=== PATIENT | female | born 1985 | race Caucasian/White ===

== ENCOUNTER 2019-04-17 16:17 | Inpatient (IN) | payer OTHER, SELFPAY ==
[2019-04-17] VITALS (69 sets, daily range): BP systolic 82–120; BP diastolic 45–83; PULSE 66–124; RESP 8–22; TEMP 36.5–38; O2SAT 86–100
--- NOTE | 2019-04-17 16:15 | W.ED.GENAD ---
Discharge Plan Disposition Patient Disposition: [facility] INPATIENT Condition: Improving Discharge Details Chief Complaint: OD/Poison Clinical Impression: Intentional opiate overdose, Aspiration pneumonia, Altered mental status, Suicide attempt Admit Date/Time: 04/17/19 18:25 Admit Provider: Galileo Moore Attending Provider: Galileo Moore Primary Care Provider: Fanny Willson ED Provider: Ashish Olvera Medical Decision Making This is a 33-year-old female with no significant past medical history except for anxiety and irritable bowel syndrome who presents today for evaluation of suspected overdose. Since 8 AM, which is the past 8 hours the patient has been search for over by [facility] police. They did find her not long ago with an empty bottle of liquid morphine which was . It was 100 mg per 5 mL's. Unknown downtime. She was given 8 mg intranasally by initial EMS and then 0.5 mg IV by paramedics. She had notable improvement of her respirations after this. Patient is altered but responds to all commands and follows commands. She does appear to be under the influence of the medication. She does admit to me that she did try to take her life today. Exam demonstrates no focal neurologic deficit, no cervical thoracic or lumbar midline spinal tenderness. Reflexes and sensation appear intact. Patient does appear slightly lethargic though. Suspect overdose, as well as potential mild brain injury secondary to the unknown downtime. We will evaluate with CT scan, ABG, resuscitate, evaluate CPK level for potential further clues and downtime. Patient will require admission based on her current clinical state. 6:22 PM Laboratory work-up is returned relatively benign, CPK is notably elevated though, in the setting of normal renal function though. She does have some leukocytosis. I suspect mild rhabdomyolysis. ABG demonstrated a low O2, however it did not correlate with her pulse ox, so I suspect that it was actually a VBG. I did discuss this with the respiratory therapist and they confirm that the blood was not pulsatile, it did not come quickly, and was notably dark initially. The patient has maintained good lung saturations this entire time. There was a brief episode roughly 2 minutes ago where the patient's head was back, and she was snoring, her oxygen was 88%. She was woken up and she immediately jumped up to 98% on room air. Pupils remain reactive, no signs of pinpoint pupils currently. I do not feel that at this time a Narcan drip is clinically indicated. She is awake alert and oriented now, and has notable improvement in her mental status. She is answering my questions and does admit to self-harm currently. We do have a one-to-one ordered for the patient. I did contact Dr. Gilbert at the and discussed the case with him, he agrees with the current plan. Patient will be admitted to the ICU. He has asked that I place brief admission orders in the meantime, however he has accepted care of the patient. I have extensively reviewed the treatment plan with the patient. I have addressed all patient concerns at this time. I have also discussed the plan with the admitting physician and they agree with the current assessment and plan and have agreed to assume responsibility for the patient. All parties demonstrate verbal understanding and agreement with our assessment and plan at this time. Immediately prior to admission transition to the floor, with myself and Dr. Moore, there was a notable decrease in the patient's respiratory drive. The decision was made to give her 0.4 mg of Narcan, this notably improved her symptomatology. Additionally a chest x-ray was ordered just prior to that, which does not demonstrate potential inflammatory versus infectious process. We do not currently have any Unasyn at the hospital, so we will give Rocephin and Flagyl. I have extensively reviewed the treatment plan with the patient. I have addressed all patient concerns at this time. I have also discussed the plan with the admitting physician and they agree with the current assessment and plan and have agreed to assume responsibility for the patient. All parties demonstrate verbal understanding and agreement with our assessment and plan at this time. EKG 16: 24 Rate 113, sinus tachycardia, NC 150, QTc 447, QRS 88, RSR in V1, nonspecific less than [address] depression only in V4, no ST elevation, no significant Q waves, inverted T waves are noted in lead III. And V1. EXAM: XR Chest, 1 View EXAM DATE/TIME: 04/17/2019 6:17 PM CLINICAL HISTORY: 33 years old, female; Signs and symptoms; Cough with hemorrhage; Patient HX: Cough, s/o overdose. TECHNIQUE: Imaging protocol: XR of the chest, 1 view. COMPARISON: No relevant prior studies available. FINDINGS: Lungs: Mild nonspecific left perihilar pulmonary opacities consistent with pneumonia versus pulmonary hemorrhage. Pleural space: Unremarkable. No pleural effusion. No pneumothorax. Heart/Mediastinum: Unremarkable. No cardiomegaly. Bones/joints: Unremarkable. IMPRESSION: Mild nonspecific left perihilar pulmonary opacities consistent with pneumonia versus pulmonary hemorrhage. Dictated and Authenticated by: Winston Garcia MD. Ordering:MARTÍN Hinojosa MD Findings: Brain: Normal. No hemorrhage. Unremarkable white matter. No mass effect. Ventricles: Normal. No ventriculomegaly. Bones/joints: Unremarkable. No acute fracture. Sinuses: Visualized sinuses are unremarkable. No fluid levels. Mastoid air cells: Visualized mastoid air cells are well aerated. No mastoid effusion. Orbits: Unremarkable. Soft tissues: Unremarkable. Impression: No acute intracranial abnormality. Exam: CT Cervical Spine Without Contrast EXAM DATE/TIME: 04/17/2019 4:27 PM CLINICAL HISTORY: 33 years old, female; Signs and symptoms; Other: PT found unconscious; Altered/overdose Technique: Imaging protocol: Axial computed tomography images of the cervical spine without contrast. Coronal and sagittal reformatted images were created and reviewed. Radiation optimization: All CT scans at this facility use at least one of these dose optimization techniques: automated exposure control; mA and/or kV adjustment per patient size (includes targeted exams where dose is matched to clinical indication); or iterative reconstruction. Comparison: No relevant prior studies available. Findings: Vertebrae: No acute fracture. Normal alignment. Discs/Spinal canal/Neural foramina: No spinal stenosis. No neural foraminal narrowing. Soft tissues: Unremarkable. Lungs: Lung apices are normal. Impression: No acute findings. Dictated and Authenticated by: Jose Cruz Corona MD. Ordering:MARTÍN Hinojosa MD HPI General Date/Time Provider Initiated Documentation: 04/17/19 16:26. 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 [facility] police have been searching for the female since 8 AM, she was just found about 100 [address] behind the house today at 4 PM. She was noticed to be face down on the soft ground, no signs of trauma or injury. There is an empty bottle of liquid morphine that was 100 mg per 5 mL's. It was empty and . Upon EMS arrival she was initially given 8 mg of intranasal Narcan with no significant improvement, IV was established and she was given 0.5 mg of IV Narcan and had notable improvement of her respiratory rate as well as her mental status. She was altered, but would respond to commands. Initial Accu-Chek was 140 no other significant traumatic components. She was placed in a c-collar as a precaution. No other significant abnormalities on initial vital signs aside from mild tachycardia. No other complaints. No other modifying factors. Related Data Home Medications Medication Instructions Recorded Confirmed acetaminophen 1 tab PO BID PRN 09/24/14 04/17/19 ibuprofen 400 mg PO Q4H PRN tab 08/29/17 04/17/19 fluocinolone 0.025 % topical 1 applic TOPICAL BID PRN #60 script 10/09/18 04/17/19 ointment clonazepam 0.5 mg tablet 0.5 mg PO BID PRN #20 tab 11/13/18 04/17/19 sertraline 100 mg tablet 150 mg PO DAILY #45 tab 11/13/18 04/17/19 Previous Rx's Medication Instructions Recorded fluocinolone 0.025 % topical 1 applic TOPICAL BID PRN #60 script 10/09/18 ointment clonazepam 0.5 mg tablet 0.5 mg PO BID PRN #20 tab 11/13/18 sertraline 100 mg tablet 150 mg PO DAILY #45 tab 11/13/18 Allergies Allergy/AdvReac Type Severity Reaction Status Date / Time No Known Allergies Allergy Verified 04/17/19 17:17 Review of Systems Review of Systems Unobtainable due to mental condition [facility] Medical History Depression IBS (irritable bowel syndrome) Surgical History CERVICAL BIOPSY (04/29/13) Cervical Procedure (02/21/13) Tonsillectomy and adenoidectomy Family History Sister Hypothyroid Depression Mother No problems noted. 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 3.ENT: Atraumatic external nose and ears. Moist MM. Neck: Symmetric, trachea midline, No thyromegaly. There is no evidence of raccoon eyes, hoyt sign, CSF rhinorrhea, mastoid tenderness, cranial crepitus, hemotympanum, exophthalmos, or hyphema. Patient demonstrates intact dentition with no signs of tooth avulsion or fracture, no signs of jaw deformity, no evidence of a LeFort's fracture, with an intact palate, nose and orbital region. There is no evidence of a nasal septal hematoma. No proptosis. Jaw closes symmetrically. Airway is clear. 4.CVS: +S1/S2, No murmurs or gallops. Peripheral pulses 2+ and equal in all extremities. Brisk capillary refill in all extremities. 5.RESP: Unlabored respiratory effort. Clear to auscultation bilaterally. No wheezes rales or rhonchi 6.GI: Soft, Nontender/Nondistended, No hepatosplenomegaly. No guarding or rebound. 7.MSK: Normocephalic/Atraumatic, Extremities w/o deformity or ttp No cyanosis or clubbing, Normal movement of all extremities. Patient is able to lift her upper and lower extremities well without difficulty. She does have some bilateral weakness of her lower extremities, but it seems to be secondary to effort and her mental status rather than actual strength. No cervical thoracic or midline lumbar spine tenderness. Good rectal tone, good perirectal sensation. 8.Skin: Warm, Dry. No rashes or lesions. No evidence of excoriations or significant trauma 9.Neuro: enterprise architect manager II-XII grossly intact. Sensation grossly intact, no focal neurologic deficits. She is able to move all extremities without evidence of gross deficit. Exam is limited secondary to her slightly altered mental status. Sensation intact in all extremities. +2 patellar reflexes bilaterally. Negative Babinski bilaterally. Patient able to conservation engineer with both hands, lift both legs. patient is able to hold bilateral arms up for 5 seconds and there is no pronator drift, patient also holds legs up bilaterally, sensation intact to light touch in hands and feet bilaterally. Patient is not speaking however she will nod her head yes and no to answer questions. She is able to stick out her tongue and there is no deviation. 10.Psych: Patient has a GCS of 15, responds all commands. Mentation appears slightly slowed though. She does appear slightly altered. She is not speaking, however she will mouth some words clearly.
[2019-04-17] MEDS: Normal Saline 1,000 ML 1000 ML IV ×3 (16:20→17:45)
[2019-04-17 16:38] LABS: Abs Immature Grans 0.05 k/cumm (0.0-0.09); Absolute Basophil Count 0.02 k/cumm (0.0-0.2); Absolute Lymphocyte Count 1.97 k/cumm (1.2-3.4); Basophils % 0.1; Eosinophils % 0.1; HCT 43.3 % (36.0-46.0); HGB 14.6 g/dL (12.0-15.5); Immature Grans % 0.3; Lymphocytes % 10.4; Mean Corp. HGB Concentration 33.7 g/dL (32.0-36.0); Mean Corpuscular Hemoglobin 29.8 pg (27.0-33.0); Mean Corpuscular Volume 88.4 fL (80-95); Mean Platelet Volume 10.2 fL (8.0-11.0); Monocytes % 8.1; Platelet Count 294 x1000/uL (130-400); RBC Distribution Width 13.8 % (11.7-14.6); White Blood Cell Count 18.96 k/cumm (4.4-10.8)
--- NOTE | 2019-04-17 16:50 | DI.CT_ITS ---
SYMPTOM/DIAGNOSIS: ALTERED , OVERDOSE CRANIAL CT (WITHOUT CONTRAST): Noncontrast. No priors A noncontrast cranial CT was performed. The ventricular system is normal in appearance. There is no evidence of an intracranial mass lesion. There is no evidence of a subdural or epidural hematoma. No focal areas of decreased attenuation are seen. CONCLUSION: Normal noncontrast Cranial CT. CT CERVICAL SPINE: Multiple contiguous axial images of the cervical spine were obtained. Sagittal and coronal reformatted images were evaluated on the [employer]'s workstation. There are no priors for comparison. There is patient motion artifact present. There is normal alignment to the cervical spine. No acute fractures or subluxations are seen. The soft tissues are unremarkable. The lung apices are unremarkable. IMPRESSION: No acute fracture or subluxation in the cervical spine.
[2019-04-17 16:57] LABS: Absolute Eosinophil Count 0.02 k/cumm (0.0-0.7); Absolute Monocyte Count 1.54 k/cumm (0.11-0.7); Absolute Neutrophil Count 15.36 k/cumm (1.2-6.7)
[2019-04-17 16:58] LABS: Diff Comment Diff Reviewed; RBC Morphology Normal
[2019-04-17 17:00] LABS: ALT 37 U/L (12-78); AST 82 U/L (15-37); Albumin 3.7 g/dL (3.4-5.0); Alkaline Phosphatase 57 U/L (46-116); BUN 13 mg/dL (7-18); Bilirubin, Total 0.1 mg/dL (0.2-1.0); CREATININE 0.92 mg/dL (0.55-1.02); Calcium 8.3 mg/dL (8.5-10.1); Chloride 105 mmol/L (98-107); Glucose 152 mg/dL (70-100); Potassium 4.2 mmol/L (3.5-5.1); Sodium 140 mmol/L (136-145); TSH (W/Ref FT4) 3.13 uIU/mL (0.358-3.74); Total Protein 7.4 g/dL (6.4-8.2)
[2019-04-17 17:02] LABS: HCG Qual (Serum) Negative
[2019-04-17 17:06] LABS: Salicylate 4.1 mg/dL (2.8-20.0)
[2019-04-17 17:14] LABS: Bilirubin Negative (Negative); Blood Large (Negative); Clarity Sl Cloudy; Glucose Negative (Negative); Ketones Negative (Negative); Leukocyte Esterase Negative (Negative); Nitrite Negative (Negative); Specific Gravity 1.025 (1.005-1.025); Urobilinogen 0.2 EU/dL (Up TO 0.2); pH 5.5 (5-8)
[2019-04-17 17:14] LABS: ETHANOL BLOOD < 3.0 mg/dL (<3)
[2019-04-17 17:18] LABS: Acetaminophen < 2 ug/mL (10-30)
--- NOTE | 2019-04-17 17:30 | DI.VRAD_ITS ---
EXAM: CT Head Without Contrast EXAM DATE/TIME: 04/17/2019 4:27 PM CLINICAL HISTORY: 33 years old, female; Signs and symptoms; Other: PT found unconscious; Altered/overdose TECHNIQUE: Imaging protocol: Axial computed tomography images of the head without contrast. Coronal and sagittal reformatted images were created and reviewed. Radiation optimization: All CT scans at this facility use at least one of these dose optimization techniques: automated exposure control; mA and/or kV adjustment per patient size (includes targeted exams where dose is matched to clinical indication); or iterative reconstruction. COMPARISON: No relevant prior studies available. FINDINGS: Brain: Normal. No hemorrhage. Unremarkable white matter. No mass effect. Ventricles: Normal. No ventriculomegaly. Bones/joints: Unremarkable. No acute fracture. Sinuses: Visualized sinuses are unremarkable. No fluid levels. Mastoid air cells: Visualized mastoid air cells are well aerated. No mastoid effusion. Orbits: Unremarkable. Soft tissues: Unremarkable. IMPRESSION: No acute intracranial abnormality. EXAM: CT Cervical Spine Without Contrast EXAM DATE/TIME: 04/17/2019 4:27 PM CLINICAL HISTORY: 33 years old, female; Signs and symptoms; Other: PT found unconscious; Altered/overdose TECHNIQUE: Imaging protocol: Axial computed tomography images of the cervical spine without contrast. Coronal and sagittal reformatted images were created and reviewed. Radiation optimization: All CT scans at this facility use at least one of these dose optimization techniques: automated exposure control; mA and/or kV adjustment per patient size (includes targeted exams where dose is matched to clinical indication); or iterative reconstruction. COMPARISON: No relevant prior studies available. FINDINGS: Vertebrae: No acute fracture. Normal alignment. Discs/Spinal canal/Neural foramina: No spinal stenosis. No neural foraminal narrowing. Soft tissues: Unremarkable. Lungs: Lung apices are normal. IMPRESSION: No acute findings. Dictated and Authenticated by: Jose Cruz Corona MD. Ordering:MARTÍN Hinojosa MD
[2019-04-17 17:31] LABS: *AMPHETAMINES SCREEN URINE Negative (Negative); *BARBITURATES SCREEN URINE Negative (Negative); *BENZODIAZEPINES SCREEN URINE Negative (Negative); Cannabinoids THC POSITIVE (Negative); Cocaine Screen,Urine Negative (Negative); METHADONE URINE SCREEN Negative (Negative); OPIATES URINE SCREEN POSITIVE (Negative)
[2019-04-17 17:34] LABS: Tricyclic Antidepressants Negative (Negative)
[2019-04-17 17:34] LABS: Bacteria Moderate HPF (Negative); Epithelial Cells Few HPF (Negative)
[2019-04-17 17:34] LABS: Creatine Kinase 4648 U/L (26-192)
[2019-04-17 17:35] LABS: C & S Indicated? Yes; Crystals Moderate Amorphous HPF (Negative); Mucus Moderate (Negative)
--- NOTE | 2019-04-17 18:16 | DI.RAD_ITS ---
SYMPTOM/DIAGNOSIS: COUGH, POST OVERDOSE PORTABLE AP CHEST at 621 pm: Heart size and pulmonary vasculature are within normal limits. There is poor inspiration. There are increased lung markings in the perihilar regions, particularly on the left. No effusions or pneumothoraces are identified. The bones are intact. IMPRESSION: Left perihilar infiltrate. This may represent pneumonia. Other etiologies including pulmonary edema or hemorrhage cannot be excluded.
[2019-04-17] MEDS: Normal Saline Flush 10 ML SYR IVP ×2 (18:39→22:03)
--- NOTE | 2019-04-17 18:42 | DI.VRAD_ITS ---
EXAM: XR Chest, 1 View EXAM DATE/TIME: 04/17/2019 6:17 PM CLINICAL HISTORY: 33 years old, female; Signs and symptoms; Cough with hemorrhage; Patient HX: Cough, s/o overdose. TECHNIQUE: Imaging protocol: XR of the chest, 1 view. COMPARISON: No relevant prior studies available. FINDINGS: Lungs: Mild nonspecific left perihilar pulmonary opacities consistent with pneumonia versus pulmonary hemorrhage. Pleural space: Unremarkable. No pleural effusion. No pneumothorax. Heart/Mediastinum: Unremarkable. No cardiomegaly. Bones/joints: Unremarkable. IMPRESSION: Mild nonspecific left perihilar pulmonary opacities consistent with pneumonia versus pulmonary hemorrhage. Dictated and Authenticated by: Winston Garcia MD. Ordering:MARTÍN Hinojosa MD
[2019-04-17] MEDS: cefTRIAXone 1 GM/50 ML BAG IVPB (19:05)
[2019-04-17] MEDS: metroNIDAZOLE 500 MG/100 ML BAG 100 MG IVPB ×2 (19:05→23:43)
--- NOTE | 2019-04-17 19:14 | HPE_ITS ---
Date of service: 04/17/19 Time of Service: 19:13 Assessment and Plan (1) Suicide attempt by drug overdose: Current visit: Yes Status: Acute One-to-one monitoring in the intensive care unit while she continues to receive aggressive IV fluid hydration and treatment of her aspiration pneumonitis and close monitoring of her respiratory status. (2) Aspiration pneumonitis: Current visit: Yes Status: Acute Empiric treatment of her aspiration pneumonitis with ceftriaxone and Flagyl along with scheduled aerosolized bronchodilators and IV corticosteroids. Note Unasyn was not available. Repeat her chest x-ray in the morning. We will closely monitor end-tidal CO2 and oxygen levels with use of Narcan as needed for hypersomnolence, apnea, hypercapnia, R.T. has set up BIPAP to use in the event that narcan does not improve any hypercarbia/hypoxemia. (3) Rhabdomyolysis: Current visit: Yes Status: Acute Aggressive IV fluid hydration with close monitoring of her urine output with repeat serial monitoring of her electrolytes and BUN and creatinine and creatinine kinase levels. 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 Patient was reported by her family to be missing and [facility] police began searching for the patient around 8 AM. She was found facedown in the [place] about 100 yards behind her home at 4 PM. There is no apparent signs of trauma or injury. An empty bottle of liquid morphine of unknown quantity but of a concentration of 100 mg per 5 mL's was fou nd nearby. Patient was initially resuscitated by EMS with 8 mg of intranasal Narcan with no significant improvement and an IV was established and she was given 0.5 mg of IV Narcan with notable improvement in her respiratory rate as well as her mental status. She remained obtunded but able to follow commands. Fingerstick blood glucose level was 140. No apparent trauma was noted nevertheless she was placed in a cervical collar as a precaution. She was evaluated emergency department by Dr. Ashish Olvera who performed laboratory studies as well as CT of her head and cervical spine and an EKG. EKG was read as sinus tachycardia rate 113 bpm with no significant ST-T wave abnormalities and a normal QTC of 447 ms. Laboratory studies include a CBC that demonstrated elevated white count of 11,000, CMP showed elevated glucose 152 and an increased anion gap of 14 with normal BUN of 13 creatinine 0.92 with mildly elevated AST of 82 and a creatinine kinase of 4648. Qualitative serum hCG was negative. TSH was normal. She had no significant electrolyte abnormalities. Urine drug screen was positive for opiates and THC but otherwise was negative for methadone, barbiturates, tricyclic antidepressants, amphetamines, benzodiazepines, cocaine. Blood alcohol was less than 3 acetaminophen level is less than [address] scan of her head showed no acute intracranial abnormality. CT scan of her cervical spine without contrast showed no acute findings. ABG was attempted but demonstrated low partial pressure of oxygen which did not correlate with a pulse oximetry and therefore it was suspected to be an inadvertent venous blood gas. During her time in the emergency room she had episodes of hypopnea and sonorous respirations with some brief desaturations of her oxygen level down to 88%. With noxious stimulation she woke up and her oxygen saturation jumped up to 98% on room air. However because of repeated episodes of hypopnea along with a rising end-tidal CO2 up to 45 patient required an additional dose of Narcan 0.4 mg IV in the emergency room. Dr. Olvera ordered a portable chest x-ray because of the low oxygen saturations and because of the sonorous respirations there was some concern as to whether or not the patient may have aspirated at some point in time on the field. Portable chest x-ray showed mild nonspecific left perihilar pulmonary opacities consistent with pneumonia versus pulmonary hemorrhage. Patient was started on prophylactic antibiotic treatment for possible aspiration pneumonitis. She was given a dose of Rocephin 1 g IV and metronidazole 500 mg IV. Patient is now admitted to the intensive care unit for close monitoring of her respiratory status and treatment with IV fluids to treat her rhabdomyolysis and IV antibiotics and IV steroids for her pneumonitis. Review of Systems Review of Systems Unobtainable due to mental condition [facility] Medical History Depression IBS (irritable bowel syndrome) Surgical History CERVICAL BIOPSY (04/29/13) Cervical Procedure (02/21/13) Tonsillectomy and adenoidectomy Family History Sister Hypothyroid Depression Mother No problems noted. 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 What type of physical activity do you participate in: walking Duration: 15-30 minutes/day Frequency: 1-2 times per week Seatbelt use: always Helmet use: Yes Drive intox or ride w/intox dray driver: No Do you feel safe in your relationship?: Yes Additional Social history: pt currently not answering Meds Home Medications Medication Instructions Recorded Confirmed Type acetaminophen 1 tab PO BID PRN 09/24/14 04/17/19 History ibuprofen 400 mg PO Q4H PRN tab 08/29/17 04/17/19 History fluocinolone 0.025 % topical 1 applic TOPICAL BID PRN #60 script 10/09/18 04/17/19 Rx ointment clonazepam 0.5 mg tablet 0.5 mg PO BID PRN #20 tab 11/13/18 04/17/19 Rx sertraline 100 mg tablet 150 mg PO DAILY #45 tab 11/13/18 04/17/19 Rx Allergies Allergy/AdvReac Type Severity Reaction Status Date / Time No Known Allergies Allergy Verified 04/17/19 17:17 Exam Narrative Exam Narrative: General appearance: Young female who is somnolent but arousable. She will identify that she is in the hospital in [place] when I asked her where she is at but I cannot get her to answer questions related to date or time or circumstance of her admission. She will open her eyes to tactile stimulation as well as calling her name but then quickly becomes somnolent again. Glascow coma score 14. HEENT is without facial trauma no periorbital ecchymosis. Tympanic membranes intact without hemotympanum. Nares moist without epistaxis. Oropharynx noninjected no exudate. Teeth appear to be in good repair. No tongue or buccal lacerations. Gag reflex is weak Neck is supple nontender without JVD normal carotid pulses no thyromegaly no cervical edema. Lungs reveal scattered rhonchi right worse than the left with expiratory wheezing. Heart is regular without murmur rub or gallop PMI is at the apex with no palpable thrill heave. Abdomen is soft and nondistended with normoactive bowel sounds no palpable organomegaly no palpable masses no audible bruits. Extremities without ecchymosis and there is no joint swelling and no calf swelling. Radial and pedal pulses are normal. Genitalia and rectal exam deferred. Neurologic exam reveals young female whose somnolent but arousable to loud verbal stimulation as well as tactile stimulation. She will answer appropriately but then drifts back to sleep and midsentence. Extraocular motions intact. Visual acuity was not checked. Pupils are equally reactive. She has no facial symmetry. Tongue is midline. Palate moves symmetrically. She has normal strength range of motion both upper extremities to tactile stimulation. Sensory exam appears to be intact to noxious stimulation. Plantar reflexes are downgoing bilaterally. Psychiatric exam patient is somnolent but arousable unable to assess any further until she is more awake and able to participate in the interview. Results Imaging Chest x-ray: image reviewed Imaging Studies: Noncontrast CT scan of the head showed no acute intracranial abnormality. Noncontrast CT scan of the cervical spine showed no acute findings. Labs : 04/18/19 06:35 04/17/19 20:40 Laboratory Results - last 24 hr 04/17/19 04/17/19 04/17/19 16:20 16:20 16:20 WBC 18.96 H RBC 4.90 Hgb 14.6 Hct 43.3 MCV 88.4 MCH 29.8 MCHC 33.7 RDW 13.8 Plt Count 294 MPV 10.2 Immature Gran % 0.3 Neutrophils % 81.0 Lymphocytes % 10.4 Monocytes % 8.1 Eosinophils % 0.1 Basophils % 0.1 Absolute Neutrophils 15.36 H Absolute Lymphocytes 1.97 Absolute Monocytes 1.54 H Absolute Eosinophils 0.02 Absolute Basophils 0.02 Differential Comment Diff reviewed RBC Morphology Normal Sodium 140 Potassium 4.2 Chloride 105 Carbon Dioxide 21.0 Anion Gap 14.0 H BUN 13 Creatinine 0.92 Estimated GFR/1.73 m2 >= 60.00 Glucose 152 H Calcium 8.3 L Total Bilirubin 0.1 L AST 82 H ALT 37 Alkaline Phosphatase 57 Creatine Kinase Total Protein 7.4 Albumin 3.7 TSH 3.13 Serum HCG, Qual Urine Color Urine Clarity Urine pH Ur Specific [employer] Urine Protein Urine Ketones Urine Blood Urine Nitrite Urine Bilirubin Urine Urobilinogen Ur Leukocyte Esterase Urine RBC Urine WBC Ur Epithelial Cells Urine Crystals Urine Bacteria Urine Casts Urine Mucus Ur Culture Indicated? Urine Glucose Salicylates 4.1 Urine Opiates Screen Urine Methadone Screen Acetaminophen < 2 L Ur Barbiturates Screen Ur Tricyclics Screen Ur Amphetamines Screen U Benzodiazepines Scrn Urine Cocaine Screen Ur THC Screen Ethyl Alcohol < 3.0 04/17/19 04/17/19 04/17/19 16:20 16:20 17:00 WBC RBC Hgb Hct MCV MCH MCHC RDW Plt Count MPV Immature Gran % Neutrophils % Lymphocytes % Monocytes % Eosinophils % Basophils % Absolute Neutrophils Absolute Lymphocytes Absolute Monocytes Absolute Eosinophils Absolute Basophils Differential Comment RBC Morphology Sodium Potassium Chloride Carbon Dioxide Anion Gap BUN Creatinine Estimated GFR/1.73 m2 Glucose Calcium Total Bilirubin AST ALT Alkaline Phosphatase Creatine Kinase 4648 H Total Protein Albumin TSH Serum HCG, Qual Negative Urine Color Brown Urine Clarity Sl cloudy Urine pH 5.5 Ur Specific [employer] 1.025 Urine Protein 100 H Urine Ketones Negative Urine Blood Large H Urine Nitrite Negative Urine Bilirubin Negative Urine Urobilinogen 0.2 Ur Leukocyte Esterase Negative Urine RBC 10-20 H Urine WBC 5-10 Ur Epithelial Cells Few Urine Crystals Moderate amorphous Urine Bacteria Moderate Urine Casts 20-50 coarsegranular Urine Mucus Moderate Ur Culture Indicated? Yes Urine Glucose Negative Salicylates Urine Opiates Screen Urine Methadone Screen Acetaminophen Ur Barbiturates Screen Ur Tricyclics Screen Ur Amphetamines Screen U Benzodiazepines Scrn Urine Cocaine Screen Ur THC Screen Ethyl Alcohol 04/17/19 17:03 WBC RBC Hgb Hct MCV MCH MCHC RDW Plt Count MPV Immature Gran % Neutrophils % Lymphocytes % Monocytes % Eosinophils % Basophils % Absolute Neutrophils Absolute Lymphocytes Absolute Monocytes Absolute Eosinophils Absolute Basophils Differential Comment RBC Morphology Sodium Potassium Chloride Carbon Dioxide Anion Gap BUN Creatinine Estimated GFR/1.73 m2 Glucose Calcium Total Bilirubin AST ALT Alkaline Phosphatase Creatine Kinase Total Protein Albumin TSH Serum HCG, Qual Urine Color Urine Clarity Urine pH Ur Specific [employer] Urine Protein Urine Ketones Urine Blood Urine Nitrite Urine Bilirubin Urine Urobilinogen Ur Leukocyte Esterase Urine RBC Urine WBC Ur Epithelial Cells Urine Crystals Urine Bacteria Urine Casts Urine Mucus Ur Culture Indicated? Urine Glucose Salicylates Urine Opiates Screen Positive Urine Methadone Screen Negative Acetaminophen Ur Barbiturates Screen Negative Ur Tricyclics Screen Negative Ur Amphetamines Screen Negative U Benzodiazepines Scrn Negative Urine Cocaine Screen Negative Ur THC Screen Positive Ethyl Alcohol Last Vital Signs Temp 37.1 C 04/17/19 18:30 Pulse 102 H 04/17/19 18:10 Resp 12 04/17/19 18:30 BP 108/52 L 04/17/19 18:10 Pulse Ox 100 04/17/19 18:45
[2019-04-17] MEDS: Naloxone 0.4 MG/ML VIAL (19:45)
[2019-04-17] MEDS: Normal Saline 1,000 ML 250 ML IV (19:45)
[2019-04-17 20:46] LABS: HCO3 (Venous) 20 mmol/L (22-28); O2 Sat (Venous) 97 % (70-80); TCO2 (Venous) 19 mmol/L (22-29); pCO2 (Venous) 46 mm/Hg (34-47); pH (Venous) 7.25 (7.32-7.43); pO2 (Venous) 97 mm/Hg (28-44)
[2019-04-17 20:48] LABS: BE (Venous) -7.1 mmol/L (-3-3)
[2019-04-17 20:59] LABS: Anion Gap 11.3 mmol/L (3-11); BUN 10 mg/dL (7-18); CO2 19.7 mmol/L (21.0-32.0); Chloride 111 mmol/L (98-107); Glucose 106 mg/dL (70-100); Sodium 142 mmol/L (136-145)
[2019-04-17] MEDS: Albuterol/Ipratropium 3 ML UPD VIAL UPD (21:08)
[2019-04-17] MEDS: Enoxaparin 40 MG/0.4 ML SYR SC (21:11)
[2019-04-17 21:14] LABS: Calcium 7.2 mg/dL (8.5-10.1)
[2019-04-17] MEDS: methylPREDNISolone SUCC 125 MG VIAL 60 MG IVP (22:02)
[2019-04-18] VITALS (53 sets, daily range): BP systolic 92–136; BP diastolic 48–94; PULSE 61–114; RESP 0–28; TEMP 36.5–37.5; O2SAT 10–100
[2019-04-18] MEDS: Albuterol/Ipratropium 3 ML UPD VIAL UPD ×2 (02:08→11:20)
[2019-04-18] MEDS: methylPREDNISolone SUCC 125 MG VIAL 60 MG IVP (05:18)
[2019-04-18] MEDS: metroNIDAZOLE 500 MG/100 ML BAG 100 MG IVPB ×4 (05:22→23:52)
--- NOTE | 2019-04-18 05:47 | DI.RAD_ITS ---
SYMPTOM/DIAGNOSIS: ASPIRATION PNEUMONIA, S/P DRUG OVERDOSE PORTABLE AP CHEST at 544 am: Comparison is made with the day prior. Heart size and pulmonary vasculature are within normal limits. No infiltrates, effusions or pneumothoraces are identified. The bones appear intact. IMPRESSION: No acute pulmonary process.
--- NOTE | 2019-04-18 06:22 | DI.VRAD_ITS ---
EXAM: XR Chest, 1 View EXAM DATE/TIME: 04/18/2019 12:00 AM CLINICAL HISTORY: 33 years old, female; Condition or disease; Other: Aspiration pneumonia, S/P drug od TECHNIQUE: Imaging protocol: XR of the chest, 1 view. COMPARISON: SC XR PORTABLE CHEST AP 04/17/2019 6:21 PM FINDINGS: Lungs: Unremarkable. No consolidation. Pleural space: Unremarkable. No evidence of pneumothorax. Heart/Mediastinum: Unremarkable. Heart size within normal limits for technique. Bones/joints: Unremarkable. IMPRESSION: No acute findings. Dictated and Authenticated by: Jamir Posada MD. Ordering:.[facility] Oscar Gurrola MD
[2019-04-18 07:09] LABS: Abs Immature Grans 0.03 k/cumm (0.0-0.09); Absolute Basophil Count 0.02 k/cumm (0.0-0.2); Absolute Monocyte Count 0.41 k/cumm (0.11-0.7); Absolute Neutrophil Count 9.08 k/cumm (1.2-6.7); Basophils % 0.2; HCT 44.1 % (36.0-46.0); HGB 14.5 g/dL (12.0-15.5); Immature Grans % 0.3; Lymphocytes % 8.6; Mean Corp. HGB Concentration 32.9 g/dL (32.0-36.0); Mean Corpuscular Hemoglobin 29.7 pg (27.0-33.0); Mean Corpuscular Volume 90.2 fL (80-95); Mean Platelet Volume 10.6 fL (8.0-11.0); Monocytes % 3.9; Platelet Count 200 x1000/uL (130-400); RBC 4.89 m/cumm (4.00-5.20); RBC Distribution Width 14.3 % (11.7-14.6); White Blood Cell Count 10.44 k/cumm (4.4-10.8)
[2019-04-18 07:16] LABS: ALT 100 U/L (12-78); AST 377 U/L (15-37); Alkaline Phosphatase 50 U/L (46-116); Anion Gap 7.8 mmol/L (3-11); Bilirubin, Total 0.3 mg/dL (0.2-1.0); CO2 22.2 mmol/L (21.0-32.0); Chloride 112 mmol/L (98-107); Potassium 4.6 mmol/L (3.5-5.1); Sodium 142 mmol/L (136-145)
--- NOTE | 2019-04-18 07:40 | PDOC.CMIN ---
- If Service Date Differs Date of service: 04/18/19 Time of Service: 07:41 Care Management Initial Assess REASON FOR HOSPITALIZATION:: Suicide attempt by drug overdose PAST MEDICAL HISTORY/PAST SURGICAL HISTORY:: Medical History: Depression. IBS (irritable bowel syndrome). Surgical History: CERVICAL BIOPSY (04/29/13). Cervical Procedure (02/21/13). Tonsillectomy and adenoidectomy PREVIOUS FUNCTIONAL STATUS/SOCIAL/FAMILY SUPPORTS:: Payal lives in [place] with her significant other, Adebayo. They have a single family home which they share with their 2 children. Their son Yung is 6 and attends the [employer] and their daughter Karmen is 3. 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 She is independent with all activities and drives. Payal has 2 sisters and her parents nearby but states she does not feel close to them. CURRENT FUNCTIONAL STATUS:: Payal was sitting up in bed talking with Esther Alexander from [employer] when CM came to see her. She was tearful and acknowledged being sad. She was unable to state that she does not want to hurt herself at this time. She remains under constant observation with a CPSO in attendance. ADVANCE DIRECTIVES:: None on file Has patient been provided with information about the portal?: No Did the patient sign up for the portal?: No CODE STATUS:: Full Code INSURANCE COVERAGE / FINANCIAL ISSUES:: GISC/[employer] CURRENT HOME/COMMUNITY SERVICES/EQUIPMENT:: None at this time PRIMARY CARE PHYSICIAN:: Fanny Willson POTENTIAL DISCHARGE NEEDS:: Anticipate Payal will need inpatient or intense outpatient treatment for her synptoms of depression and management of SI. PATIENT/FAMILY EDUCATION NEEDS:: Discharge plan, limitations, follow up plan of care, Ask Me Three ANTICIPATED BARRIERS TO DISCHARGE:: unknown at this time TRANSPORTATION:: To be determined by discharge plan PLAN:: Payal remains ICU level of care following an intentional opiate overdose. When medically cleared, mental health crisis will be contacted for further assessment and psychiatric stabilization, if appropriate. It is likely Payal will benefit from inpatient or outpatient treatment for symptoms of depression and SI. CM will continu to provide support to patient, family and discharge planning process.
[2019-04-18 07:41] LABS: Albumin 2.8 g/dL (3.4-5.0); BUN 8 mg/dL (7-18); CREATININE 0.79 mg/dL (0.55-1.02); Calcium 7.5 mg/dL (8.5-10.1); Glucose 144 mg/dL (70-100)
[2019-04-18 07:42] LABS: Total Protein 6.1 g/dL (6.4-8.2)
--- NOTE | 2019-04-18 07:45 | INITIAL_ITS ---
- If Service Date Differs Date of service: 04/18/19 Time of Service: 07:41 Care Management Initial Assess REASON FOR HOSPITALIZATION:: Suicide attempt by drug overdose PAST MEDICAL HISTORY/PAST SURGICAL HISTORY:: Medical History: Depression. IBS (irritable bowel syndrome). Surgical History: CERVICAL BIOPSY (04/29/13). Cervical Procedure (02/21/13). Tonsillectomy and adenoidectomy PREVIOUS FUNCTIONAL STATUS/SOCIAL/FAMILY SUPPORTS:: Payal lives in [place] with her significant other, Adebayo. They have a single family home which they share with their 2 children. Their son Yung is 6 and attends the [employer] and their daughter Karmen is 3. 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 She is independent with all activities and drives. Payal has 2 sisters and her parents nearby but states she does not feel close to them. CURRENT FUNCTIONAL STATUS:: Payal was sitting up in bed talking with Esther Alexander from [employer] when CM came to see her. She was tearful and acknowledged being sad. She was unable to state that she does not want to hurt herself at this time. She remains under constant observation with a CPSO in attendance. ADVANCE DIRECTIVES:: None on file Has patient been provided with information about the portal?: No Did the patient sign up for the portal?: No CODE STATUS:: Full Code INSURANCE COVERAGE / FINANCIAL ISSUES:: GISC/[employer] CURRENT HOME/COMMUNITY SERVICES/EQUIPMENT:: None at this time PRIMARY CARE PHYSICIAN:: Fanny Willson POTENTIAL DISCHARGE NEEDS:: Anticipate Payal will need inpatient or intense outpatient treatment for her synptoms of depression and management of SI. PATIENT/FAMILY EDUCATION NEEDS:: Discharge plan, limitations, follow up plan of care, Ask Me Three ANTICIPATED BARRIERS TO DISCHARGE:: unknown at this time TRANSPORTATION:: To be determined by discharge plan PLAN:: Payal remains ICU level of care following an intentional opiate overdose. When medically cleared, mental health crisis will be contacted for further assessment and psychiatric stabilization, if appropriate. It is likely Payal will benefit from inpatient or outpatient treatment for symptoms of depression and SI. CM will continu to provide support to patient, family and discharge planning process.
[2019-04-18 08:02] LABS: Creatine Kinase > 10000 U/L (26-192)
--- NOTE | 2019-04-18 10:36 | PDOC.CMSAFE ---
- If Service Date Differs Date of service: 04/18/19 Time of Service: 10:36 Care Management Safety Plan Interim Safety Plan Payal is a 33 year old woman admitted to [facility] following an intentional overdose of liquid morphine. She has a history of depression and irritable bowel syndrome. SHAHID met with the patient. She states she has been feeling increasingly sad over the last 6 months or so. She did see a therapist in the past and said it helped. When asked why she did not seek help when she became sad again, she stated no one really cares or wants to hear about my issues. They are my issues, not theirs. She shared that it is difficult for her to talk about things. Arti noted that when she was young and growing up, if she was upset she would get yelled at or hit and told to stop crying, so she learned not to express her feelings. She states she does not think she wants to hurt herself now but added who knows in a few days. Arti is appropriate in all interactions since arriving at [facility]. She has demonstrated appropriate coping and communication skills and is engaged during staff interactions. She remains in the ICU and has not been medically cleared. Once Payal is medically cleared, mental health crisis will be contacted for further assessment and psychiatric stabilization, if appropriate. In the interim; please note safety plan below to guide patient care while awaiting further assessment. SAFETY PLAN: 1. Will remain on suicide precautions and in paper clothes or hospital gown. 2. Will remain in room under direct supervision of one-on-one staff at all times provided by ZAYDA, CASE AIDE [employer] professor. 3. May have paper cups, plates, finger foods as well as a cardboard spoon with which to eat meals. 4. Follow [facility] Management of the Admitted Behavioral Health Patient policy. 5. Comfort bath system only. 6. No personal belongings 7. Visitors at nursing discretion 8. Phone contact at nursing discretion.
--- NOTE | 2019-04-18 11:09 | PHARADMIT ---
Addendum entered by Sage Tsai III 04/26/19 14:19: Pharmacy Note Subjective Medically ready for discharge, stil receiving PT Objective VS-OK Labs-OK discussed checking LFTs in AM Assessment IV Fluids DC'd Plan Awaiting psych placement, CM working towards this. Addendum entered by Sage Tsai III 04/25/19 15:04: Pharmacy Note Subjective Patient experiencing leg weakness due to Rhabdomyolysis, seen by neurology, improving. Receiving PT & OT. CPK continues downward trend. Provider feels she is still at risk for suicide attempt. Objective VS-OK Labs-OK wgt-80.7kg having BMs Assessment ABX have completed ( 5days), continues to require IV fluids Plan Patient will need psychiatric placement upon discharge Addendum entered by Vanessa Melchor 04/20/19 15:55: ordered Sodium Bicarb 150meq/1L D5W @ 150ml/hr....continued for 4 bags for severe Rhabdomylosis Creatinine Kinase still reports >02904 even after the bicarb infusions. Pt not able to walk, lower extremity weakness, kidney function remains good, LFTs are elevated, but improving Was some discussion of sending her to tertiary hospital for further workup Has a sitter, mental health will see her when medically cleared, will likely need Psych placement Anbx continue, Micro urine: 10-50K gram positive Home med Celexa not started Original Note: Admission Pharmacy Clinical Review INTENTIONAL OPIATE OVERDOSE Code Status Full Code Current Weight 84 kg Renally Cleared and Narrow Therapeutic Index Meds height not avail QTc Value / Action Taken QTC 447 BP Control, Fever BP 123/66 Afebrile pain zero Electrolytes reviewed in range DVT Prophylaxis Opiate Usage / Scheduled Bowel Regimen Ordered Plt/SCr for Heparin / Enoxaparin Plt 200 SCr 0.79 INR for Warfarin H/H stable, WBC/Bands H/H 14.5/44.1 WBC 10.44 Antibiotic appropriateness Rocephin/Flagyl IV for ? aspiration Cultures and Sensitivities Urine pending Surgical ABX d/c within 24 hr DM control / Insulin Dosing Heart Failure (Check EF%) (DIANNE's, B-Block, Diuretics) IV to PO Switch Home Meds Reviewed Home Meds Not Ordered Celexa, Clonazepam, Fjuocinolone topical, Ibuprofen, Sertaline Comments CK went from 4648 to >10,000 Will be transferred from ICU to [facility] Mental health will be called once medically stable (not today) Chest xray negative for Pneumonia-?d/c Anbx Tox screen: positive opiates/THC...OD was using liquid Morphine concentrate 100mg/5ml
--- NOTE | 2019-04-18 11:29 | CMSP_ITS ---
- If Service Date Differs Date of service: 04/18/19 Time of Service: 10:36 Care Management Safety Plan Interim Safety Plan Payal is a 33 year old woman admitted to [facility] following an intentional overdose of liquid morphine. She has a history of depression and irritable bowel syndrome. SHAHID met with the patient. She states she has been feeling increasingly sad over the last 6 months or so. She did see a therapist in the past and said it helped. When asked why she did not seek help when she became sad again, she stated no one really cares or wants to hear about my issues. They are my issues, not theirs. She shared that it is difficult for her to talk about thi ngs. Arti noted that when she was young and growing up, if she was upset she would get yelled at or hit and told to stop crying, so she learned not to express her feelings. She states she does not think she wants to hurt herself now but added who knows in a few days. Arti is appropriate in all interactions since arriving at [facility]. She has demonstrated appropriate coping and communication skills and is engaged during staff interactions. She remains in the ICU and has not been medically cleared. Once Payal is medically cleared, mental health crisis will be contacted for further assessment and psychiatric stabilization, if appropriate. In the interim; please note safety plan below to guide patient care while awaiting further assessment. SAFETY PLAN: 1. Will remain on suicide precautions and in paper clothes or hospital gown. 2. Will remain in room under direct supervision of one-on-one staff at all times provided by ZAYDA, MEDIA SERVICES DIRECTOR social media senior associate. 3. May have paper cups, plates, finger foods as well as a cardboard spoon with which to eat meals. 4. Follow [facility] Management of the Admitted Behavioral Health Patient policy. 5. Comfort bath system only. 6. No personal belongings 7. Visitors at nursing discretion 8. Phone contact at nursing discretion.
[2019-04-18] MEDS: LORazepam 1 MG TAB PO (12:32)
--- NOTE | 2019-04-18 13:22 | DI.MRI_ITS ---
SYMPTOM/DIAGNOSIS: BILATERAL LEG WEAKNESS THORACIC SPINE MRI: A noncontrast examination of the thoracic spine was performed. There is normal signal in the spinal cord. There is normal signal in the bone marrow and intervertebral discs. No focal disc herniation, central spinal canal or neural foraminal stenosis is seen in the thoracic spine. IMPRESSION: Normal MRI of the thoracic spine. No evidence of spinal cord abnormality. LUMBAR SPINE MRI: Routine noncontrast examination was performed. The distal aspect of the cord shows normal signal. There is normal signal in the vertebral bodies and intervertebral discs. No focal disc herniation, central spinal canal or neural foraminal stenosis is seen. IMPRESSION: Negative MRI of the lumbar spine. Normal cord signal.
[2019-04-18 14:06] LABS: HCO3 22 mmol/L (22-28); pCO2 60 mmHg (34-47); sO2 42 % (94-98); tCO2 21 mmol/L (22-29)
[2019-04-18 14:10] LABS: pH 7.18 (7.35-7.45)
[2019-04-18 14:11] LABS: BE -6.3 mmol/L (-3-3); pO2 29 mmHg (83-108)
--- NOTE | 2019-04-18 15:10 | CHAPLAIN ---
I received a call from the [facility] [employer], Rev. Sofya Alexander, telling me that Payal was admitted to the ICU and she asked me to see if Giovanna wanted Sofya to visit. Giovanna said she wanted to see Sofya, but no one else from [facility]. 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 I stopped in to visit Giovanna and her mom a few times during the day. Her mom said she may need to go home to take care of her dogs around suppertime. I offered to stay with Randy if she wants company then. Both of Giovanna's sister's have been involved in stressful situations lately, according to their mom. One daughter is helping care for the niece and nephew of her boyfriend, after they boyfriend's sister attempted suicide recently. Giovanna has told nursing staff that she does not want other family members, including her children, visiting her, except for her mom.
[2019-04-18] MEDS: Lactated Ringers 1,000 ML 200 ML IV ×2 (15:26→23:48)
[2019-04-18] MEDS: Naproxen 375 MG TAB PO (15:26)
--- NOTE | 2019-04-18 16:37 | PGE_ITS ---
Date of Service Date of service: 04/18/19 Time of Service: 07:30 Assessment and Plan (1) Suicide attempt by drug overdose: Current visit: Yes Status: Acute Respiratory and mental status doing well. She is quite reserved which I think is from her mood disorder and does not represent hypoxic encephalopathy. She endorses an extensive time of planning for this suicide attempt and I think she remains at high risk. She is not yet medically cleared for mental health to get involved. I am holding off on starting an antidepressant until medical problems have resolved or have clearly stabilized. She did not respond, in her opinion, the sertraline. Perhaps she might respond to a different SSRI or SNRI. (2) Aspiration pneumonitis: Current visit: Yes Status: Acute Lung exam still has a few crackles, chest x-ray clear this morning. No oxygen requirement. No tachypnea. No complaints of shortness of breath. I have stopped steroids. I am continuing current antibiotics. Likely could switch to oral Augmentin tomorrow if she continues to do well. (3) Rhabdomyolysis: Current visit: Yes Status: Acute Renal function holding up. Complaining of discomfort in her legs which might be related to rhabdomyolysis? See how she does with NSAIDs. With her transaminase elevations I wish to avoid acetaminophen and I am not going to give her any opiates given her recent overdose. (4) Elevated transaminase level: Current visit: Yes Status: Acute Might have hypoxic liver injury but this might be coming from muscle. Repeat labs in the morning. (5) Leg weakness, bilateral: Current visit: Yes Status: Acute Not clear if this is from rhabdomyolysis. No indication of spinal cord infarct on MRI. Exam is a little difficult to interpret as there may be some volitional component. PT consultation and follow with time. (6) Depression: Current visit: Yes Status: Chronic Awaiting mental health consultation but not medically cleared. As noted above, holding on starting any antidepressants until medical problems resolved or clearly stable. Subjective Interval history since last seen: Patient became progressively more alert overnight. As of this morning she was able to speak clearly. She informs me that she had been thinking about killing herself for months and had been storing morphine for that purpose. She had been on sertraline but stopped it months ago because it did not seem to help. She feels disconnected from any source of support. That being said she admits she is close to her mother and her boyfriend/father children has been supportive. She feels overwhelmed by the demands of work and parenthood. She denies prior attempts at suicide but has had thoughts of other ways to end her life. She has had improving urine output. She has not had fever. Her oxygen requirements have steadily dropped. She has an occasional cough, nonproductive. She denies pleuritic chest pain or stomach pain. She states that her legs feel a bit numb right more than left and heavy. Throughout the morning it seemed that her legs were weaker. When nursing staff tried to transfer her from bedside commode she had difficulty bearing her weight. She has not been incontinent and was able to voluntarily void. MRI was subsequently ordered of her thoracic and lumbar spine which has returned normal. CPK level is above the upper limit of detection. Transaminase levels have gone up. BUN and creatinine have remained normal. White count has normalized. She has not been febrile since admission. Exam Narrative Exam Narrative: This morning a little drowsy, midday awake and alert. Very soft-spoken throughout the day with very flat affect. No facial asymmetry. Extraocular movements intact. Pupils 3 mm equal and reactive by midday. Tongue midline. Speech soft but clear with no dysarthria. Spontaneous head movements do not indicate any neck discomfort. Lungs good aeration, a few end inspiratory crackles at the right base, clear on the left. Regular heart rhythm without murmur S3 or S4. Bowel sounds present, abdomen soft no tenderness. Right upper quadrant not tender. Good pulses throughout. She has no pronator drift. Symmetric specialty manufacturing supervisor strength. Right leg slightly internal rotated and foot inverted. Antigravity power present in the left leg this morning, did not have much movement of her distal right foot and had to use her arm to lift her right leg this morning. Reexamination midday, could not lift either leg or put pole legs up. Could not push toes down her up. (Not clear if this was full effort or not). Passive range of motion without provoking pain. No tenderness to palpation of the proximal or distal muscles of her legs. Cold touch sensation present in both lower extremities. Absent DTR in the right leg throughout the day hyperreflexic in the left, no ankle clonus. Occasional shivering type movements diffusely that she is aware of and states that she feels chilled. She knows the month the day and why she is here. Objective Objective Clinical Data: Abnormal lab results 04/17/19 04/17/19 04/17/19 Range/Units 16:06 16:20 16:20 WBC (4.4-10.8) k/cumm Absolute Neutrophils (1.2-6.7) k/cumm Absolute Lymphocytes (1.2-3.4) k/cumm Absolute Monocytes (0.11-0.7) k/cumm pCO2 60 H (34-47) mmHg pO2 29 L* (83-108) mmHg O2 Saturation 42 L (94-98) % ABG pH 7.18 L* (7.35-7.45) ABG Total CO2 21 L (22-29) mmol/L ABG Base Excess -6.3 L (-3-3) mmol/L VBG pH (7.32-7.43) VBG pO2 (28-44) mm/Hg VBG HCO3 (22-28) mmol/L VBG Total CO2 (22-29) mmol/L VBG O2 Saturation (70-80) % VBG Base Excess (-3-3) mmol/L Chloride (98-107) mmol/L Carbon Dioxide (21.0-32.0) mmol/L Anion Gap 14.0 H (3-11) mmol/L Glucose 152 H (70-100) mg/dL Calcium 8.3 L (8.5-10.1) mg/dL Total Bilirubin 0.1 L (0.2-1.0) mg/dL AST 82 H (15-37) U/L ALT (12-78) U/L Creatine Kinase (26-192) U/L Total Protein (6.4-8.2) g/dL Albumin (3.4-5.0) g/dL Urine Protein (Negative) mg/dL Urine Blood (Negative) Urine RBC (0-2) Acetaminophen < 2 L (10-30) ug/mL 04/17/19 04/17/19 04/17/19 Range/Units 16:20 16:20 17:00 WBC 18.96 H (4.4-10.8) k/cumm Absolute Neutrophils 15.36 H (1.2-6.7) k/cumm Absolute Lymphocytes (1.2-3.4) k/cumm Absolute Monocytes 1.54 H (0.11-0.7) k/cumm pCO2 (34-47) mmHg pO2 (83-108) mmHg O2 Saturation (94-98) % ABG pH (7.35-7.45) ABG Total CO2 (22-29) mmol/L ABG Base Excess (-3-3) mmol/L VBG pH (7.32-7.43) VBG pO2 (28-44) mm/Hg VBG HCO3 (22-28) mmol/L VBG Total CO2 (22-29) mmol/L VBG O2 Saturation (70-80) % VBG Base Excess (-3-3) mmol/L Chloride (98-107) mmol/L Carbon Dioxide (21.0-32.0) mmol/L Anion Gap (3-11) mmol/L Glucose (70-100) mg/dL Calcium (8.5-10.1) mg/dL Total Bilirubin (0.2-1.0) mg/dL AST (15-37) U/L ALT (12-78) U/L Creatine Kinase 4648 H (26-192) U/L Total Protein (6.4-8.2) g/dL Albumin (3.4-5.0) g/dL Urine Protein 100 H (Negative) mg/dL Urine Blood Large H (Negative) Urine RBC 10-20 H (0-2) Acetaminophen (10-30) ug/mL 04/17/19 04/17/19 04/18/19 Range/Units 20:40 20:40 06:35 WBC (4.4-10.8) k/cumm Absolute Neutrophils (1.2-6.7) k/cumm Absolute Lymphocytes (1.2-3.4) k/cumm Absolute Monocytes (0.11-0.7) k/cumm pCO2 (34-47) mmHg pO2 (83-108) mmHg O2 Saturation (94-98) % ABG pH (7.35-7.45) ABG Total CO2 (22-29) mmol/L ABG Base Excess (-3-3) mmol/L VBG pH 7.25 L (7.32-7.43) VBG pO2 97 H (28-44) mm/Hg VBG HCO3 20 L (22-28) mmol/L VBG Total CO2 19 L (22-29) mmol/L VBG O2 Saturation 97 H (70-80) % VBG Base Excess -7.1 L (-3-3) mmol/L Chloride 111 H (98-107) mmol/L Carbon Dioxide 19.7 L (21.0-32.0) mmol/L Anion Gap 11.3 H (3-11) mmol/L Glucose 106 H (70-100) mg/dL Calcium 7.2 L (8.5-10.1) mg/dL Total Bilirubin (0.2-1.0) mg/dL AST (15-37) U/L ALT (12-78) U/L Creatine Kinase > 37204 H (26-192) U/L Total Protein (6.4-8.2) g/dL Albumin (3.4-5.0) g/dL Urine Protein (Negative) mg/dL Urine Blood (Negative) Urine RBC (0-2) Acetaminophen (10-30) ug/mL 04/18/19 04/18/19 Range/Units 06:35 06:35 WBC (4.4-10.8) k/cumm Absolute Neutrophils 9.08 H (1.2-6.7) k/cumm Absolute Lymphocytes 0.90 L (1.2-3.4) k/cumm Absolute Monocytes (0.11-0.7) k/cumm pCO2 (34-47) mmHg pO2 (83-108) mmHg O2 Saturation (94-98) % ABG pH (7.35-7.45) ABG Total CO2 (22-29) mmol/L ABG Base Excess (-3-3) mmol/L VBG pH (7.32-7.43) VBG pO2 (28-44) mm/Hg VBG HCO3 (22-28) mmol/L VBG Total CO2 (22-29) mmol/L VBG O2 Saturation (70-80) % VBG Base Excess (-3-3) mmol/L Chloride 112 H (98-107) mmol/L Carbon Dioxide (21.0-32.0) mmol/L Anion Gap (3-11) mmol/L Glucose 144 H (70-100) mg/dL Calcium 7.5 L (8.5-10.1) mg/dL Total Bilirubin (0.2-1.0) mg/dL AST 377 H (15-37) U/L ALT 100 H (12-78) U/L Creatine Kinase (26-192) U/L Total Protein 6.1 L (6.4-8.2) g/dL Albumin 2.8 L (3.4-5.0) g/dL Urine Protein (Negative) mg/dL Urine Blood (Negative) Urine RBC (0-2) Acetaminophen (10-30) ug/mL Vital Signs Temperature 37.5 C 04/18/19 11:40 Temperature Source Temporal Artery Scan 04/18/19 11:40 Pulse 89 04/18/19 14:02 Pulse 94 H 04/18/19 14:02 Respiratory Rate 12 04/18/19 14:02 Respiratory Effort 04/18/19 11:40 Respiratory Depth Shallow 04/18/19 11:40 Respiratory Pattern Normal 04/18/19 11:40 Blood Pressure 120/76 04/18/19 14:02 Blood Pressure Mean 84 04/18/19 14:02 Blood Pressure Position Supine 04/18/19 11:40 Pulse Oximetry 99 04/18/19 14:02 Respiratory End-tidal CO2 10 04/18/19 09:01 Oxygen Delivery Method Room Air 04/18/19 11:40 Oxygen Flow Rate 0 04/18/19 11:40 End Tidal Co2 32 04/17/19 16:17 Pain Level 0 04/18/19 11:40 Intake & Output 04/17/19 04/18/19 04/18/19 23:59 11:59 23:59 Intake Total 3820.833 / 3820.833 2255 / 3163.333 908.333 / 3163.333 Output Total 800 / 800 925 / 1375 450 / 1375 Balance 3020.833 / 3020.833 1330 / 1788.333 458.333 / 1788.333 Weight 80 kg 84 kg Intake: IV 3820.833 / 3820.833 2255 / 3063.333 808.333 / 3063.333 Oral 100 / 100 Output: Urine 800 / 800 925 / 1375 450 / 1375 Other: Urine Color Dark Yue Yellow Yellow Urine Appearance Clear Clear Clear Urine Odor None Comment Pt has an indwelling campbell cath. She has two children. Campbell DCd; patient voided on commode small amount of urine after. Voiding Methods Bedside Commode Laboratory Results WBC 10.44 k/cumm (4.4-10.8) D 04/18/19 06:35 RBC 4.89 m/cumm (4.00-5.20) 04/18/19 06:35 Hgb 14.5 g/dL (12.0-15.5) 04/18/19 06:35 Hct 44.1 % (36.0-46.0) 04/18/19 06:35 MCV 90.2 fL (80-95) 04/18/19 06:35 MCH 29.7 pg (27.0-33.0) 04/18/19 06:35 MCHC 32.9 g/dL (32.0-36.0) 04/18/19 06:35 RDW 14.3 % (11.7-14.6) 04/18/19 06:35 Plt Count 200 x1000/uL (130-400) 04/18/19 06:35 MPV 10.6 fL (8.0-11.0) 04/18/19 06:35 Immature Gran % 0.3 04/18/19 06:35 Neutrophils % 87.0 04/18/19 06:35 Lymphocytes % 8.6 04/18/19 06:35 Monocytes % 3.9 04/18/19 06:35 Eosinophils % 0.0 04/18/19 06:35 Basophils % 0.2 04/18/19 06:35 Absolute Neutrophils 9.08 k/cumm (1.2-6.7) H 04/18/19 06:35 Absolute Lymphocytes 0.90 k/cumm (1.2-3.4) L 04/18/19 06:35 Absolute Monocytes 0.41 k/cumm (0.11-0.7) 04/18/19 06:35 Absolute Eosinophils 0.00 k/cumm (0.0-0.7) 04/18/19 06:35 Absolute Basophils 0.02 k/cumm (0.0-0.2) 04/18/19 06:35 Differential Comment Diff reviewed 04/17/19 16:20 RBC Morphology Normal 04/17/19 16:20 Sample Site Not Applicable 04/17/19 16:06 pCO2 60 mmHg (34-47) H 04/17/19 16:06 pO2 29 mmHg (83-108) L* 04/17/19 16:06 O2 Saturation 42 % (94-98) L 04/17/19 16:06 ABG pH 7.18 (7.35-7.45) L* 04/17/19 16:06 ABG HCO3 22 mmol/L (22-28) 04/17/19 16:06 ABG Total CO2 21 mmol/L (22-29) L 04/17/19 16:06 ABG Base Excess -6.3 mmol/L (-3-3) L 04/17/19 16:06 VBG pH 7.25 (7.32-7.43) L 04/17/19 20:40 VBG pCO2 46 mm/Hg (34-47) 04/17/19 20:40 VBG pO2 97 mm/Hg (28-44) H 04/17/19 20:40 VBG HCO3 20 mmol/L (22-28) L 04/17/19 20:40 VBG Total CO2 19 mmol/L (22-29) L 04/17/19 20:40 VBG O2 Saturation 97 % (70-80) H 04/17/19 20:40 VBG Base Excess -7.1 mmol/L (-3-3) L 04/17/19 20:40 Sodium 142 mmol/L (136-145) 04/18/19 06:35 Potassium 4.6 mmol/L (3.5-5.1) 04/18/19 06:35 Chloride 112 mmol/L (98-107) H 04/18/19 06:35 Carbon Dioxide 22.2 mmol/L (21.0-32.0) 04/18/19 06:35 Anion Gap 7.8 mmol/L (3-11) 04/18/19 06:35 BUN 8 mg/dL (7-18) 04/18/19 06:35 Creatinine 0.79 mg/dL (0.55-1.02) 04/18/19 06:35 Estimated GFR/1.73 m2 >= 60.00 (mL/min/1.73m2) 04/18/19 06:35 Glucose 144 mg/dL (70-100) H 04/18/19 06:35 Calcium 7.5 mg/dL (8.5-10.1) L 04/18/19 06:35 Total Bilirubin 0.3 mg/dL (0.2-1.0) 04/18/19 06:35 AST 377 U/L (15-37) H 04/18/19 06:35 ALT 100 U/L (12-78) H 04/18/19 06:35 Alkaline Phosphatase 50 U/L (46-116) 04/18/19 06:35 Creatine Kinase > 42673 U/L (26-192) H 04/18/19 06:35 Total Protein 6.1 g/dL (6.4-8.2) L 04/18/19 06:35 Albumin 2.8 g/dL (3.4-5.0) L 04/18/19 06:35 TSH 3.13 uIU/mL (0.358-3.74) 04/17/19 16:20 Serum HCG, Qual Negative 04/17/19 16:20 Urine Color Brown (Yellow) 04/17/19 17:00 Urine Clarity Sl cloudy 04/17/19 17:00 Urine pH 5.5 (5-8) 04/17/19 17:00 Ur Specific Murdock 1.025 (1.005-1.025) 04/17/19 17:00 Urine Protein 100 mg/dL (Negative) H 04/17/19 17:00 Urine Ketones Negative mg/dL (Negative) 04/17/19 17:00 Urine Blood Large (Negative) H 04/17/19 17:00 Urine Nitrite Negative (Negative) 04/17/19 17:00 Urine Bilirubin Negative (Negative) 04/17/19 17:00 Urine Urobilinogen 0.2 EU/dL (Up TO 0.2) 04/17/19 17:00 Ur Leukocyte Esterase Negative (Negative) 04/17/19 17:00 Urine RBC 10-20 (0-2) H 04/17/19 17:00 Urine WBC 5-10 HPF (0-5) 04/17/19 17:00 Ur Epithelial Cells Few HPF (Negative) 04/17/19 17:00 Urine Crystals Moderate amorphous HPF (Negative) 04/17/19 17:00 Urine Bacteria Moderate HPF (Negative) 04/17/19 17:00 Urine Casts 20-50 coarsegranular LPF (Negative) 04/17/19 17:00 Urine Mucus Moderate (Negative) 04/17/19 17:00 Ur Culture Indicated? Yes 04/17/19 17:00 Urine Glucose Negative mg/dL (Negative) 04/17/19 17:00 Salicylates 4.1 mg/dL (2.8-20.0) 04/17/19 16:20 Urine Opiates Screen Positive (Negative) 04/17/19 17:03 Urine Methadone Screen Negative (Negative) 04/17/19 17:03 Acetaminophen < 2 ug/mL (10-30) L 04/17/19 16:20 Ur Barbiturates Screen Negative (Negative) 04/17/19 17:03 Ur Tricyclics Screen Negative (Negative) 04/17/19 17:03 Ur Amphetamines Screen Negative (Negative) 04/17/19 17:03 U Benzodiazepines Scrn Negative (Negative) 04/17/19 17:03 Urine Cocaine Screen Negative (Negative) 04/17/19 17:03 Ur THC Screen Positive (Negative) 04/17/19 17:03 Ethyl Alcohol < 3.0 mg/dL (<3) 04/17/19 16:20
[2019-04-18] MEDS: cefTRIAXone 1 GM/50 ML BAG IVPB (19:07)
[2019-04-18] MEDS: Normal Saline Flush 10 ML SYR IVP ×4 (19:16→23:53)
--- NOTE | 2019-04-18 19:23 | NUR.NOTE ---
Extensive teaching and support was given today by Naomy Arias RN and Mora Miner RN both to the patient and to family/significant other. The patient had been withdrawn and it was noted that she became more withdrawn with discussion of interactions from outside family/friends. We talked to the patient privately and supported that visitors can be dictated by her with nursing discretion and encouraged her to use this time as her bubble for her healing. We also spoke privately with the patient's mom and explained our concern in the the patient withdrawing more or becoming upset when told about texts from family her mom was receiving. We encouraged the mom to be the support person as the patient had verbalized to us but to allow her daughter a space that meant outside interaction was only brought in at the patient's request. When this advocacy and patient's space conversation was had with the patient and the patient was told that we had spoken regarding it to her mother, the patient was tearful but thanked us and became more relaxed and open. The patient has since made her needs known more, opted to eat, requested that her partner come to visit (which was granted), has been more talkative, and has been smiling some with the nurses. This plan of care for the patient was relayed to the oncoming RNs and the partner was educated on the plan of focusing on the patient's needs and recovery as well as those for him and her mom at this time. The patient and her support people have been kept up to date on the symptoms and treatment of rhabdomyolisis, pain control, campbell insertion, safety in transfer, fluid intake, and test results. The patient or family have been spoken to by Dr. Rogers and have no further questions when asked. The patient and her mom were very receptive to the conversations we had and a good rapport was maintained and they each communicated with us more freely after them. The partner has a stand-offish disposition in not making good eye contact and not verbally interacting with the RNs when patient recovery items were being discussed but he has been pleasant and would converse with staff otherwise. Hours of support were given by the hospital chaplains today. Nursing Note:
[2019-04-18] MEDS: traMADol 50 MG TAB PO (20:05)
[2019-04-18] MEDS: Enoxaparin 40 MG/0.4 ML SYR SC (20:09)
[2019-04-18] MEDS: Naproxen 500 MG TAB PO (22:26)
[2019-04-19] VITALS (27 sets, daily range): BP systolic 91–137; BP diastolic 55–88; PULSE 53–97; RESP 12–28; TEMP 37–37.7; O2SAT 97–98
[2019-04-19] MEDS: traMADol 50 MG TAB PO ×3 (00:30→13:04)
[2019-04-19] MEDS: Zolpidem 5 MG TAB PO (00:33)
[2019-04-19] MEDS: Normal Saline Flush 10 ML SYR IVP ×2 (05:07→15:55)
[2019-04-19] MEDS: metroNIDAZOLE 500 MG/100 ML BAG 100 MG IVPB ×3 (05:07→18:05)
[2019-04-19] MEDS: Lactated Ringers 1,000 ML 200 ML IV (06:34)
[2019-04-19 06:41] LABS: ALT 252 U/L (12-78); AST 513 U/L (15-37); Albumin 2.7 g/dL (3.4-5.0); Alkaline Phosphatase 40 U/L (46-116); Anion Gap 8.1 mmol/L (3-11); BUN 6 mg/dL (7-18); Bilirubin, Total 0.4 mg/dL (0.2-1.0); CO2 24.9 mmol/L (21.0-32.0); CREATININE 0.66 mg/dL (0.55-1.02); Calcium 7.9 mg/dL (8.5-10.1); Chloride 108 mmol/L (98-107); Glucose 96 mg/dL (70-100); Potassium 3.3 mmol/L (3.5-5.1); Sodium 141 mmol/L (136-145); Total Protein 5.2 g/dL (6.4-8.2)
[2019-04-19 07:15] LABS: Creatine Kinase > 10000 U/L (26-192)
--- NOTE | 2019-04-19 07:46 | CMPROGNOTE_ITS ---
- If Service Date Differs Date of service: 04/19/19 Time of Service: 07:45 Care Management Progress Note S/O:Payal was sitting up in bed visiting with her mother and sister when CM came to see her. She smiled briefly and said she is feeling more awake today. She states she worked with PT but was not even able to stand without assistance. She said that she understands the CTs done yesterday were negative so is hopeful the weakness will be temporary. CK remains elevated at greater than 10,000. Still not medically cleared for mental health evaluation. A: Payal is a 33 year old woman admitted to [facility] on 04/17/19 after and intentional opiate overdose P: Payal remains ICU level of care following an intentional opiate overdose. When medically cleared, mental health crisis will be contacted for further assessment and psychiatric stabilization, if appropriate. It is likely Payal will benefit from inpatient or outpatient treatment for symptoms of depression and SI. CM will continue to provide support to patient, family and discharge planning process.
--- NOTE | 2019-04-19 08:42 | PGE_ITS ---
Date of Service Date of service: 04/19/19 Time of Service: 08:37 Assessment and Plan (1) Rhabdomyolysis: Current visit: Yes Status: Acute Not improving with IVF alone. I have added lasix as well as changed fluids over to bicarb gtt. Continue to monitor in ICU. (2) Aspiration pneumonitis: Current visit: Yes Status: Acute Continue ceftriaxone/flagyl (3) Suicide attempt by drug overdose: Current visit: Yes Status: Acute Mental health consult while medically cleared (4) Anxiety: Current visit: No Status: Acute will provide prn ativan (5) Depression: Current visit: Yes Status: Chronic Mental health evaluation (6) Leg weakness, bilateral: Current visit: Yes Status: Acute Likely due to rhabdomyolysis. However, numbness/weakness are less likely due to that. Will check tick studies given her lengthy time in the [facility]. (7) Discharge planning issues: Current visit: Yes Status: Acute Full code. For mental health consult once medically cleared. (8) DVT prophylaxis: Current visit: Yes Status: Acute Not requiring chemical DVT ppx due to age. JAIROs Subjective Interval history since last seen: Making urine. Feels guilty and sad, emotionally labile. When asked if she is still feeling like she might hurt herself if given the opportunity, she states she is not sure. Denies dizziness, chest pain, shortness of breath, nausea. Complains of a chronic cough, weakness and numbness/tingling in her B legs. Sitter in room. States her family is very supportive and she would like them in the room. Mental health has not evaluated her yet as she has not been medically cleared. Exam Narrative Exam Narrative: General: Very pleasant female, sitting up in bed, A&Ox3, tearful HEENT: EOMI, MMM Heart: RRR, no m/r/g Lungs: CTAB GI: abdomen is soft, nontender, nondistended Extremities: Trace edema BLE's, no c/c; 5/5 strength throughout and sensation is intact Objective Objective Clinical Data: Abnormal lab results 04/17/19 04/19/19 04/19/19 Range/Units 16:06 05:58 06:03 pCO2 60 H (34-47) mmHg pO2 29 L* (83-108) mmHg O2 Saturation 42 L (94-98) % ABG pH 7.18 L* (7.35-7.45) ABG Total CO2 21 L (22-29) mmol/L ABG Base Excess -6.3 L (-3-3) mmol/L Potassium 3.3 L D (3.5-5.1) mmol/L Chloride 108 H (98-107) mmol/L BUN 6 L (7-18) mg/dL Calcium 7.9 L (8.5-10.1) mg/dL AST 513 H (15-37) U/L ALT 252 H (12-78) U/L Alkaline Phosphatase 40 L (46-116) U/L Creatine Kinase > 70741 H (26-192) U/L Total Protein 5.2 L (6.4-8.2) g/dL Albumin 2.7 L (3.4-5.0) g/dL Vital Signs Temperature 37.1 C 04/19/19 07:53 Temperature Source Temporal Artery Scan 04/19/19 07:53 Pulse 87 04/19/19 07:53 Pulse 67 04/19/19 07:47 Respiratory Rate 20 04/19/19 07:53 Respiratory Effort 04/19/19 07:53 Respiratory Depth Normal 04/19/19 07:53 Respiratory Pattern Normal 04/19/19 07:53 Blood Pressure 137/88 04/19/19 07:47 Blood Pressure Mean 100 04/19/19 07:47 Blood Pressure Position Supine 04/18/19 11:40 Pulse Oximetry 97 04/19/19 07:53 Respiratory End-tidal CO2 10 04/18/19 09:01 Oxygen Delivery Method Room Air 04/19/19 08:09 Oxygen Flow Rate 0 04/19/19 08:09 End Tidal Co2 32 04/17/19 16:17 Pain Level 6 04/19/19 06:16 Intake & Output 04/18/19 04/18/19 04/19/19 11:59 23:59 11:59 Intake Total 2255 / 4565.000 2310.000 / 4565.000 2089 / 2089 Output Total 925 / 2775 1850 / 2775 1150 / 1150 Balance 1330 / 1790.000 460.000 / 1790.000 940 / 940 Weight 84 kg 86.1 kg Intake: IV 2255 / 4265.000 2009.000 / 4265.000 1100 / 1100 Oral 300 / 300 990 / 990 Output: Urine 925 / 2775 1850 / 2775 1150 / 1150 Other: Urine Color Yellow Pale Pale Yellow Yellow Urine Appearance Clear Clear Clear Urine Odor None None Comment Morales DCd; patient voided on commode small amount of urine after. voiding large amt in commode Morales ordered if the pt wishes for comfort; voiding presently to commode w steady lift Voiding Methods Bedside Commode Bedside Commode Bedside Commode Laboratory Results WBC 10.44 k/cumm (4.4-10.8) D 04/18/19 06:35 RBC 4.89 m/cumm (4.00-5.20) 04/18/19 06:35 Hgb 14.5 g/dL (12.0-15.5) 04/18/19 06:35 Hct 44.1 % (36.0-46.0) 04/18/19 06:35 MCV 90.2 fL (80-95) 04/18/19 06:35 MCH 29.7 pg (27.0-33.0) 04/18/19 06:35 MCHC 32.9 g/dL (32.0-36.0) 04/18/19 06:35 RDW 14.3 % (11.7-14.6) 04/18/19 06:35 Plt Count 200 x1000/uL (130-400) 04/18/19 06:35 MPV 10.6 fL (8.0-11.0) 04/18/19 06:35 Immature Gran % 0.3 04/18/19 06:35 Neutrophils % 87.0 04/18/19 06:35 Lymphocytes % 8.6 04/18/19 06:35 Monocytes % 3.9 04/18/19 06:35 Eosinophils % 0.0 04/18/19 06:35 Basophils % 0.2 04/18/19 06:35 Absolute Neutrophils 9.08 k/cumm (1.2-6.7) H 04/18/19 06:35 Absolute Lymphocytes 0.90 k/cumm (1.2-3.4) L 04/18/19 06:35 Absolute Monocytes 0.41 k/cumm (0.11-0.7) 04/18/19 06:35 Absolute Eosinophils 0.00 k/cumm (0.0-0.7) 04/18/19 06:35 Absolute Basophils 0.02 k/cumm (0.0-0.2) 04/18/19 06:35 Differential Comment Diff reviewed 04/17/19 16:20 RBC Morphology Normal 04/17/19 16:20 Sample Site Not Applicable 04/17/19 16:06 pCO2 60 mmHg (34-47) H 04/17/19 16:06 pO2 29 mmHg (83-108) L* 04/17/19 16:06 O2 Saturation 42 % (94-98) L 04/17/19 16:06 ABG pH 7.18 (7.35-7.45) L* 04/17/19 16:06 ABG HCO3 22 mmol/L (22-28) 04/17/19 16:06 ABG Total CO2 21 mmol/L (22-29) L 04/17/19 16:06 ABG Base Excess -6.3 mmol/L (-3-3) L 04/17/19 16:06 VBG pH 7.25 (7.32-7.43) L 04/17/19 20:40 VBG pCO2 46 mm/Hg (34-47) 04/17/19 20:40 VBG pO2 97 mm/Hg (28-44) H 04/17/19 20:40 VBG HCO3 20 mmol/L (22-28) L 04/17/19 20:40 VBG Total CO2 19 mmol/L (22-29) L 04/17/19 20:40 VBG O2 Saturation 97 % (70-80) H 04/17/19 20:40 VBG Base Excess -7.1 mmol/L (-3-3) L 04/17/19 20:40 Sodium 141 mmol/L (136-145) 04/19/19 06:03 Potassium 3.3 mmol/L (3.5-5.1) L D 04/19/19 06:03 Chloride 108 mmol/L (98-107) H 04/19/19 06:03 Carbon Dioxide 24.9 mmol/L (21.0-32.0) 04/19/19 06:03 Anion Gap 8.1 mmol/L (3-11) 04/19/19 06:03 BUN 6 mg/dL (7-18) L 04/19/19 06:03 Creatinine 0.66 mg/dL (0.55-1.02) 04/19/19 06:03 Estimated GFR/1.73 m2 >= 60.00 (mL/min/1.73m2) 04/19/19 06:03 Glucose 96 mg/dL (70-100) 04/19/19 06:03 Calcium 7.9 mg/dL (8.5-10.1) L 04/19/19 06:03 Total Bilirubin 0.4 mg/dL (0.2-1.0) 04/19/19 06:03 AST 513 U/L (15-37) H 04/19/19 06:03 ALT 252 U/L (12-78) H 04/19/19 06:03 Alkaline Phosphatase 40 U/L (46-116) L 04/19/19 06:03 Creatine Kinase > 08675 U/L (26-192) H 04/19/19 05:58 Total Protein 5.2 g/dL (6.4-8.2) L 04/19/19 06:03 Albumin 2.7 g/dL (3.4-5.0) L 04/19/19 06:03 TSH 3.13 uIU/mL (0.358-3.74) 04/17/19 16:20 Serum HCG, Qual Negative 04/17/19 16:20 Urine Color Brown (Yellow) 04/17/19 17:00 Urine Clarity Sl cloudy 04/17/19 17:00 Urine pH 5.5 (5-8) 04/17/19 17:00 Ur Specific Aurelia 1.025 (1.005-1.025) 04/17/19 17:00 Urine Protein 100 mg/dL (Negative) H 04/17/19 17:00 Urine Ketones Negative mg/dL (Negative) 04/17/19 17:00 Urine Blood Large (Negative) H 04/17/19 17:00 Urine Nitrite Negative (Negative) 04/17/19 17:00 Urine Bilirubin Negative (Negative) 04/17/19 17:00 Urine Urobilinogen 0.2 EU/dL (Up TO 0.2) 04/17/19 17:00 Ur Leukocyte Esterase Negative (Negative) 04/17/19 17:00 Urine RBC 10-20 (0-2) H 04/17/19 17:00 Urine WBC 5-10 HPF (0-5) 04/17/19 17:00 Ur Epithelial Cells Few HPF (Negative) 04/17/19 17:00 Urine Crystals Moderate amorphous HPF (Negative) 04/17/19 17:00 Urine Bacteria Moderate HPF (Negative) 04/17/19 17:00 Urine Casts 20-50 coarsegranular LPF (Negative) 04/17/19 17:00 Urine Mucus Moderate (Negative) 04/17/19 17:00 Ur Culture Indicated? Yes 04/17/19 17:00 Urine Glucose Negative mg/dL (Negative) 04/17/19 17:00 Salicylates 4.1 mg/dL (2.8-20.0) 04/17/19 16:20 Urine Opiates Screen Positive (Negative) 04/17/19 17:03 Urine Methadone Screen Negative (Negative) 04/17/19 17:03 Acetaminophen < 2 ug/mL (10-30) L 04/17/19 16:20 Ur Barbiturates Screen Negative (Negative) 04/17/19 17:03 Ur Tricyclics Screen Negative (Negative) 04/17/19 17:03 Ur Amphetamines Screen Negative (Negative) 04/17/19 17:03 U Benzodiazepines Scrn Negative (Negative) 04/17/19 17:03 Urine Cocaine Screen Negative (Negative) 04/17/19 17:03 Ur THC Screen Positive (Negative) 04/17/19 17:03 Ethyl Alcohol < 3.0 mg/dL (<3) 04/17/19 16:20
[2019-04-19] MEDS: Furosemide 20 MG/2 ML VIAL IVP ×2 (09:07→15:49)
[2019-04-19] MEDS: Potassium Chloride 20 MEQ TABCR 40 MEQ PO ×3 (09:07→20:55)
[2019-04-19] MEDS: SODIUM BICARBONATE 150 MEQ in DEXTROSE 5%-WATER 850 ML IV ×2 (11:24→18:04)
--- NOTE | 2019-04-19 12:44 | IN_ITS ---
Date of service: 04/19/19 Time of Service: 09:30 PT Notes Inpatient Physical Therapy Evaluation Date: April 19, 2019 Referring Doctor: Vera Gutiérrez MD PT Orders: PT CONSULT: eval/treat for management of LE weakness Precautions: Standard, in the presence of severe depression and SI. Patient Profile/Admitting Diagnosis: 33-year-old female, suffering from severe depression, admitted for medical management following intentional drug overdose. She has developed bilateral (right greater than left) lower extremity weakness and motor control loss, from influence of drug overdose, compared to premorbid level of independent function. PMHX: Medical History Depression IBS (irritable bowel syndrome) Surgical History CERVICAL BIOPSY (04/29/13) Cervical Procedure (02/21/13) Tonsillectomy and adenoidectomy Family History Sister Hypothyroid Depression Mother No problems noted. 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 Her significant other also has a client that he takes care of. She is able to reside on the primary level of the home, which does have a bedroom and bathroom, with 2-3 steps to enter. Otherwise, her normal mobility around the home would involve 2 flights of stairs. Both sets of stairs have a rail. Current Functional Limitations: Dependent on steady lift with static standing, and to assist with sit <> stand transfer. Only tolerating short-term static standing, due to right lower extremity weakness. Requires use of upper extremity to assist with movement of the right LE in/out of bed. Equipment Owned/DME: None Subjective: Legs feel numb and tingly, makes her quite nervous and anxious. Her legs feel very heavy, and she is finding it difficult to understand how she is going to use them and move them, if she cannot feel them well. Objective: General Observation: Lying reclined in hospital bed, donning compression s tockings. She does have mild increase in contour of her left lateral proximal tibial region, with some palpable fibrosis seen along with mid lateral calf, compared to the right side. Is also quite tender with this palpation. Ecchymosis left chest. She is emotional and teary, but she is very pleasant and she communicates very well. Mental Status: A&O x3, emotionally unstable. Pain: Denies, but discomfort due to paresthesias bilateral lower extremities. Vital Signs: BP 120/69, HR 80, room air O2 is 98%. ROM: Right Upper Extremity: WNL Left Upper Extremity: WNL Right Lower Extremity: WNL, passive. Active limited to -10 degrees dorsiflexion, 0 degrees inversion, 5 degrees eversion of right ankle. Right knee 0 to 90 degrees. Left ankle 0 degrees dorsiflexion, inversion/eversion WNL, left knee mobility WNL. Active movements limited due to motor control deficit. Left Lower Extremity: WNL, passive Strength: Right Upper Extremity: Grossly 4+/5 Left Upper Extremity: Grossly 4+/5 Right Lower Extremity: Hip flexion 3/5, knee extension 4-/5, knee flexion 4-/5, ankle dorsiflexion 2/5, ankle plantarflexion 4+/5, ankle inversion 1/5, ankle eversion 1/5, hip abduction 3+/5, hip adduction 3+/5, able to complete bridge with good control. Left Lower Extremity: Hip flexion 4/5, knee extension and flexion 5/5, ankle dorsiflexion 4/5, ankle inversion/eversion 4/5, ankle plantarflexion 5/5, hip AB/adduction 4/5 Sensation: Intact to light and touch and pressure B LE's Bed Mobility/Transfers: Close supervision with bed mobility and supine to sit at edge of bed, patient requiring use of upper extremities to assist with movement of right lower extremity. Requires contact-guard, and use of upper extremities pulling unsteady left for sit to stand. For static standing requires use of steady lift, and fatigues quickly just after 30 seconds, but she is able to manage holding for about 3 to 4 minutes in my presence and guarding. Motor control: Poor of the right lower extremity, with buckling of the knee with sit to stand, and poor quad control with descent from LAQ. Gait: Unable Balance: Static Sitting: Fair Dynamic Sitting: Poor Static Standing: Poor Dynamic Standing: Poor Special Tests: Mobility Limitations Standardized Measure [facility] AM-PAC 6 clicks Basic Mobility Inpatient Short Form: CMS Score: 68% disability Therapeutic exercises completed per flow sheet. Informed Consent/Education: Patient instructed in purpose of PT consult and plan of care. Assessment: Patient is a 33 year old female referred to physical therapy services with the diagnosis of LE weakness, following intential drug overdose. Patient presents with clinical signs and symptoms consistent with this diagnosis, and poor LE motor control, as demonstrated by the following impairment level findings: Assumed gait ataxia Bilateral lower extremity weakness, right greater than left Lower extremity motor control deficit Poor balance and proprioception. Impairments are contributing to the following functional limitations: AMPAC score of 68% disability, unable to ambulate, dependent on use of steady left for sit to stand transfers, requires standby assist for all bed mobility and dependent on use of upper extremity to assist with right lower extremity movements, and poor balance. Patient is assessed as a [] Low 41729 x Moderate 05158 [] High 93443 complexity based on the following: History: See comorbidities, SI and severe depression. Examination: See above impairments and functional limitations Presentation: Evolving Decision Making: Moderate, see AMPAC score. Goals: Goals X1 week 1. Supine-Sit independent 2. Sit-Supine independent 3. Sit-Stand at rolling walker, contact-guard x1 4. Stand-Sit with walker, contact-guard x1 5. Bed-Chair with walker, contact-guard x1, min assist 1 6. Chair-Bed with walker, contact-guard x1, min assist 1 7. Gait 20 feet with rolling walker, contact-guard x1, min assist 1 8. Stairs 2 steps, min assist x1, contact-guard x1 9. Independent with home exercise program [] 10. Balance good sitting dynamic and static, standing dynamic and static fair. Plan of Care/Treatment Plan: 1-2x/day, 7 days/week x 1 week. Plan of care has been reviewed with the [employer] K[employer]ITTING MACHINE OPERATOR providing the service under Physical Therapy direction. Initiate Physical Therapy intervention for strengthening, bed mobility, transfers, gait, stairs, balance training, use of assistive device. DISCHARGE RECOMMENDATIONS: Difficult to determine at this time, as upcoming progress in regards to strength in lower extremity motor control and rate of progress, will influence this decision. Please refer to future notes. TREATMENT CODE/TIME: 30 minutes, 9716 2?1 Porsha Durán, MPT
[2019-04-19] MEDS: LORazepam 0.5 MG TAB PO (15:49)
[2019-04-19 16:59] LABS: BUN 6 mg/dL (7-18); CREATININE 0.84 mg/dL (0.55-1.02); Calcium 8.6 mg/dL (8.5-10.1); Chloride 103 mmol/L (98-107); Glucose 122 mg/dL (70-100); Sodium 140 mmol/L (136-145)
[2019-04-19 17:07] LABS: Potassium 2.9 mmol/L (3.5-5.1)
[2019-04-19 17:17] LABS: Creatine Kinase > 10000 U/L (26-192)
[2019-04-19 17:36] LABS: Myoglobin, U >5000 mcg/L (<=21)
[2019-04-19] MEDS: cefTRIAXone 1 GM/50 ML BAG IVPB (18:04)
[2019-04-19 22:44] LABS: Anion Gap 5.5 mmol/L (3-11); BUN 6 mg/dL (7-18); CO2 31.5 mmol/L (21.0-32.0); CREATININE 0.71 mg/dL (0.55-1.02); Calcium 8.2 mg/dL (8.5-10.1); Chloride 102 mmol/L (98-107); Glucose 109 mg/dL (70-100); Potassium 3.4 mmol/L (3.5-5.1); Sodium 139 mmol/L (136-145)
[2019-04-19 23:07] LABS: Creatine Kinase > 10000 U/L (26-192)
[2019-04-20] VITALS (23 sets, daily range): BP systolic 96–136; BP diastolic 59–93; PULSE 52–84; RESP 12–25; TEMP 36.6–37.4; O2SAT 98–99
[2019-04-20] MEDS: metroNIDAZOLE 500 MG/100 ML BAG 100 MG IVPB ×5 (00:05→23:25)
[2019-04-20] MEDS: SODIUM BICARBONATE 150 MEQ in DEXTROSE 5%-WATER 850 ML IV ×2 (00:06→06:28)
[2019-04-20] MEDS: LORazepam 0.5 MG TAB PO ×3 (06:28→21:21)
[2019-04-20] MEDS: traMADol 50 MG TAB PO (06:28)
[2019-04-20 06:49] LABS: Abs Immature Grans 0.02 k/cumm (0.0-0.09); Absolute Basophil Count 0.01 k/cumm (0.0-0.2); Absolute Eosinophil Count 0.08 k/cumm (0.0-0.7); Absolute Lymphocyte Count 2.57 k/cumm (1.2-3.4); Absolute Monocyte Count 0.57 k/cumm (0.11-0.7); Absolute Neutrophil Count 2.51 k/cumm (1.2-6.7); Basophils % 0.2; Eosinophils % 1.4; HGB 13.1 g/dL (12.0-15.5); Immature Grans % 0.3; Lymphocytes % 44.6; Mean Corp. HGB Concentration 33.6 g/dL (32.0-36.0); Mean Corpuscular Hemoglobin 29.7 pg (27.0-33.0); Mean Corpuscular Volume 88.4 fL (80-95); Mean Platelet Volume 10.3 fL (8.0-11.0); Monocytes % 9.9; Neutrophils % 43.6; Platelet Count 193 x1000/uL (130-400); RBC 4.41 m/cumm (4.00-5.20); RBC Distribution Width 13.8 % (11.7-14.6); White Blood Cell Count 5.76 k/cumm (4.4-10.8)
[2019-04-20 07:10] LABS: ALT 303 U/L (12-78); AST 464 U/L (15-37); Albumin 2.9 g/dL (3.4-5.0); Alkaline Phosphatase 42 U/L (46-116); Anion Gap 6.7 mmol/L (3-11); BUN 5 mg/dL (7-18); Bilirubin, Direct 0.09 mg/dL (0.00-0.20); Bilirubin, Total 0.5 mg/dL (0.2-1.0); CO2 31.3 mmol/L (21.0-32.0); Calcium 8.4 mg/dL (8.5-10.1); Chloride 104 mmol/L (98-107); Glucose 88 mg/dL (70-100); Magnesium 1.8 mg/dL (1.8-2.4); Potassium 3.1 mmol/L (3.5-5.1); Sodium 142 mmol/L (136-145); Total Protein 5.8 g/dL (6.4-8.2)
[2019-04-20 07:30] LABS: Creatine Kinase > 10000 U/L (26-192)
--- NOTE | 2019-04-20 07:43 | PDOC.CMPRO ---
- If Service Date Differs Date of service: 04/20/19 Time of Service: 07:43 Care Management Progress Note S/O:Payal was seen by CM in the ICU. She was sitting up in bed having blood work drawn by Respiratory Therapy and a CPSO was providing support during the procedure.After the procedure, during a private conversation with CM, Payal shared that she had stopped taking her antidepressant on her own about a week ago because she felt it was making her more suicidal. She is currently seeing a therapist but does not feel she has a good connection with her. She plans to seek therapy elsewhere when able. She cannot state definitively that she is not longer having suicidal thoughts but has no plans to harm herself. She stated that she would really like to be discharged home but understands that may not be possible. She says she is open to IOP or inpatient treatment but prefers it be somewhere close by so that she can continue to see her children. A referral was made by CM to [facility] for a crisis evaluation today which was completed . Please see Mental Health note in record. A: Payal is a 33 year old woman admitted to [facility] on 04/17/19 after and intentional opiate overdose P: Payal remains ICU level of care following an intentional opiate overdose. When medically cleared, mental health crisis will be contacted for further assessment and psychiatric stabilization, if appropriate. It is likely Payal will benefit from inpatient or outpatient treatment for symptoms of depression and SI. CM will continue to provide support to patient, family and discharge planning process.
--- NOTE | 2019-04-20 08:27 | PGE_ITS ---
Date of Service Date of service: 04/20/19 Time of Service: 08:25 Assessment and Plan (1) Rhabdomyolysis: Current visit: Yes Status: Acute Given pH/serum bicarb, she cannot tolerate more alkalinization. Fluids changed to NS. Continue to trend CPK. We might have to send it out if the number continues to be reported as >10,000. LFT's are starting to turn around, which may be an earlier marker of improving rhabdomyolysis. Thankfully, Cr is still normal. Continue to monitor labs/I/O's/daily weights. Continue to monitor in the ICU. (2) Aspiration pneumonitis: Current visit: Yes Status: Acute Continue ceftriaxone/flagyl (3) Suicide attempt by drug overdose: Current visit: Yes Status: Acute As above. Patient is no longer considered a risk to self - however, yesterday she was not yet sure that she would not attempt again - for this reason, we will continue CPSO through the night. She will be voluntarily placed in a psychiatric hospital once medically cleared. (4) Anxiety: Current visit: No Status: Acute will provide prn ativan (5) Depression: Current visit: Yes Status: Chronic Mental health evaluation (6) Leg weakness, bilateral: Current visit: Yes Status: Acute Likely due to rhabdomyolysis. The MRI of the spine is negative. Continue to treat rhabdo; PT/OT. (7) Hypokalemia: Current visit: Yes Status: Acute replete (8) Discharge planning issues: Current visit: Yes Status: Acute Full code. For voluntary psychiatric hospitalization once medically stable. Would keep in ICU while pH is still elevated. (9) DVT prophylaxis: Current visit: Yes Status: Acute Not requiring chemical DVT ppx due to age. TEDs Subjective Interval history since last seen: Requiring a steady lift to get out of bed. Legs feel less numb and tingly. VS stable. No fevers. States her feet normally turn in. Denies dizziness, chest pain, shortness of breath, nausea, vomiting. Evaluated by mental health - felt that the patient is no longer suicidal. The patient, however, agrees to voluntarily get admitted for psychiatric stabilization once medically cleared. Exam Narrative Exam Narrative: General: Very pleasant female, sitting up in bed, A&Ox3 HEENT: EOMI, MMM Heart: RRR, no m/r/g Lungs: CTAB GI: abdomen is soft, nontender, nondistended Extremities: No edema BLE's, no c/c; 5/5 strength throughout in bed Objective Objective Clinical Data: Abnormal lab results 04/19/19 04/19/19 04/19/19 Range/Units 16:18 16:18 22:05 Potassium 2.9 L* 3.4 L (3.5-5.1) mmol/L BUN 6 L 6 L (7-18) mg/dL Glucose 122 H 109 H (70-100) mg/dL Calcium 8.2 L (8.5-10.1) mg/dL AST (15-37) U/L ALT (12-78) U/L Alkaline Phosphatase (46-116) U/L Creatine Kinase > 88039 H > 56854 H (26-192) U/L Total Protein (6.4-8.2) g/dL Albumin (3.4-5.0) g/dL 04/20/19 Range/Units 06:10 Potassium 3.1 L (3.5-5.1) mmol/L BUN 5 L (7-18) mg/dL Glucose (70-100) mg/dL Calcium 8.4 L (8.5-10.1) mg/dL AST 464 H (15-37) U/L ALT 303 H (12-78) U/L Alkaline Phosphatase 42 L (46-116) U/L Creatine Kinase > 98144 H (26-192) U/L Total Protein 5.8 L (6.4-8.2) g/dL Albumin 2.9 L (3.4-5.0) g/dL Vital Signs Temperature 36.7 C 04/20/19 05:00 Temperature Source Tympanic 04/20/19 05:00 Pulse 56 L 04/20/19 06:00 Pulse 64 04/20/19 07:00 Respiratory Rate 12 04/20/19 07:00 Respiratory Effort 04/20/19 05:00 Respiratory Depth Normal 04/20/19 05:00 Respiratory Pattern Normal 04/20/19 05:00 Blood Pressure 115/59 L 04/20/19 06:00 Blood Pressure Mean 74 04/20/19 06:00 Blood Pressure Position Supine 04/20/19 00:00 Pulse Oximetry 98 04/20/19 00:00 Respiratory End-tidal CO2 10 04/18/19 09:01 Oxygen Delivery Method Room Air 04/20/19 00:00 Oxygen Flow Rate 0 04/20/19 00:00 End Tidal Co2 32 04/17/19 16:17 Pain Level 0 04/20/19 05:00 Intake & Output 04/19/19 04/19/19 04/20/19 11:59 23:59 11:59 Intake Total 3270 / 8935.0 5002.5 / 8935.0 2380.0 / 2380.0 Output Total 6100 / 32713 6400 / 88935 1450 / 1450 Balance -2830 / -3565.0 -1397.5 / -3565.0 930.0 / 930.0 Weight 86.1 kg 82.3 kg Intake: IV 1200 / 4355.0 2492.5 / 4355.0 2380.0 / 2380.0 Oral 2070 / 4580 2510 / 4580 Output: Urine 6100 / 80927 6400 / 25044 1450 / 1450 Other: Urine Color Pale Pale Pale Urine Appearance Clear Clear Clear Urine Odor None Comment Campbell ordered if the pt wishes for comfort; voiding presently to commode w steady lift campbell cath in place and draining light yellow urine. IV Lasix BID today. campbell to gravity Voiding Methods Bedside Commode Laboratory Results WBC 5.76 k/cumm (4.4-10.8) 04/20/19 06:10 RBC 4.41 m/cumm (4.00-5.20) 04/20/19 06:10 Hgb 13.1 g/dL (12.0-15.5) 04/20/19 06:10 Hct 39.0 % (36.0-46.0) 04/20/19 06:10 MCV 88.4 fL (80-95) 04/20/19 06:10 MCH 29.7 pg (27.0-33.0) 04/20/19 06:10 MCHC 33.6 g/dL (32.0-36.0) 04/20/19 06:10 RDW 13.8 % (11.7-14.6) 04/20/19 06:10 Plt Count 193 x1000/uL (130-400) 04/20/19 06:10 MPV 10.3 fL (8.0-11.0) 04/20/19 06:10 Immature Gran % 0.3 04/20/19 06:10 Neutrophils % 43.6 04/20/19 06:10 Lymphocytes % 44.6 04/20/19 06:10 Monocytes % 9.9 04/20/19 06:10 Eosinophils % 1.4 04/20/19 06:10 Basophils % 0.2 04/20/19 06:10 Absolute Neutrophils 2.51 k/cumm (1.2-6.7) 04/20/19 06:10 Absolute Lymphocytes 2.57 k/cumm (1.2-3.4) 04/20/19 06:10 Absolute Monocytes 0.57 k/cumm (0.11-0.7) 04/20/19 06:10 Absolute Eosinophils 0.08 k/cumm (0.0-0.7) 04/20/19 06:10 Absolute Basophils 0.01 k/cumm (0.0-0.2) 04/20/19 06:10 Differential Comment Diff reviewed 04/17/19 16:20 RBC Morphology Normal 04/17/19 16:20 Sample Site Not Applicable 04/17/19 16:06 pCO2 60 mmHg (34-47) H 04/17/19 16:06 pO2 29 mmHg (83-108) L* 04/17/19 16:06 O2 Saturation 42 % (94-98) L 04/17/19 16:06 ABG pH 7.18 (7.35-7.45) L* 04/17/19 16:06 ABG HCO3 22 mmol/L (22-28) 04/17/19 16:06 ABG Total CO2 21 mmol/L (22-29) L 04/17/19 16:06 ABG Base Excess -6.3 mmol/L (-3-3) L 04/17/19 16:06 VBG pH 7.25 (7.32-7.43) L 04/17/19 20:40 VBG pCO2 46 mm/Hg (34-47) 04/17/19 20:40 VBG pO2 97 mm/Hg (28-44) H 04/17/19 20:40 VBG HCO3 20 mmol/L (22-28) L 04/17/19 20:40 VBG Total CO2 19 mmol/L (22-29) L 04/17/19 20:40 VBG O2 Saturation 97 % (70-80) H 04/17/19 20:40 VBG Base Excess -7.1 mmol/L (-3-3) L 04/17/19 20:40 Sodium 142 mmol/L (136-145) 04/20/19 06:10 Potassium 3.1 mmol/L (3.5-5.1) L 04/20/19 06:10 Chloride 104 mmol/L (98-107) 04/20/19 06:10 Carbon Dioxide 31.3 mmol/L (21.0-32.0) 04/20/19 06:10 Anion Gap 6.7 mmol/L (3-11) 04/20/19 06:10 BUN 5 mg/dL (7-18) L 04/20/19 06:10 Creatinine 0.70 mg/dL (0.55-1.02) 04/20/19 06:10 Estimated GFR/1.73 m2 >= 60.00 (mL/min/1.73m2) 04/20/19 06:10 Glucose 88 mg/dL (70-100) 04/20/19 06:10 Calcium 8.4 mg/dL (8.5-10.1) L 04/20/19 06:10 Magnesium 1.8 mg/dL (1.8-2.4) 04/20/19 06:10 Total Bilirubin 0.5 mg/dL (0.2-1.0) 04/20/19 06:10 Conjugated Bilirubin 0.09 mg/dL (0.00-0.20) 04/20/19 06:10 AST 464 U/L (15-37) H 04/20/19 06:10 ALT 303 U/L (12-78) H 04/20/19 06:10 Alkaline Phosphatase 42 U/L (46-116) L 04/20/19 06:10 Creatine Kinase > 41452 U/L (26-192) H 04/20/19 06:10 Total Protein 5.8 g/dL (6.4-8.2) L 04/20/19 06:10 Albumin 2.9 g/dL (3.4-5.0) L 04/20/19 06:10 TSH 3.13 uIU/mL (0.358-3.74) 04/17/19 16:20 Serum HCG, Qual Negative 04/17/19 16:20 Urine Color Brown (Yellow) 04/17/19 17:00 Urine Clarity Sl cloudy 04/17/19 17:00 Urine pH 5.5 (5-8) 04/17/19 17:00 Ur Specific Ortley 1.025 (1.005-1.025) 04/17/19 17:00 Urine Protein 100 mg/dL (Negative) H 04/17/19 17:00 Urine Ketones Negative mg/dL (Negative) 04/17/19 17:00 Urine Blood Large (Negative) H 04/17/19 17:00 Urine Nitrite Negative (Negative) 04/17/19 17:00 Urine Bilirubin Negative (Negative) 04/17/19 17:00 Urine Urobilinogen 0.2 EU/dL (Up TO 0.2) 04/17/19 17:00 Ur Leukocyte Esterase Negative (Negative) 04/17/19 17:00 Urine RBC 10-20 (0-2) H 04/17/19 17:00 Urine WBC 5-10 HPF (0-5) 04/17/19 17:00 Ur Epithelial Cells Few HPF (Negative) 04/17/19 17:00 Urine Crystals Moderate amorphous HPF (Negative) 04/17/19 17:00 Urine Bacteria Moderate HPF (Negative) 04/17/19 17:00 Urine Casts 20-50 coarsegranular LPF (Negative) 04/17/19 17:00 Urine Mucus Moderate (Negative) 04/17/19 17:00 Ur Culture Indicated? Yes 04/17/19 17:00 Urine Glucose Negative mg/dL (Negative) 04/17/19 17:00 Salicylates 4.1 mg/dL (2.8-20.0) 04/17/19 16:20 Urine Opiates Screen Positive (Negative) 04/17/19 17:03 Urine Methadone Screen Negative (Negative) 04/17/19 17:03 Acetaminophen < 2 ug/mL (10-30) L 04/17/19 16:20 Ur Barbiturates Screen Negative (Negative) 04/17/19 17:03 Ur Tricyclics Screen Negative (Negative) 04/17/19 17:03 Ur Amphetamines Screen Negative (Negative) 04/17/19 17:03 U Benzodiazepines Scrn Negative (Negative) 04/17/19 17:03 Urine Cocaine Screen Negative (Negative) 04/17/19 17:03 Ur THC Screen Positive (Negative) 04/17/19 17:03 Ethyl Alcohol < 3.0 mg/dL (<3) 04/17/19 16:20
[2019-04-20] MEDS: Potassium Chloride 20 MEQ TABCR 40 MEQ PO ×2 (09:12→21:21)
[2019-04-20] MEDS: POTASSIUM CHLORIDE/0.9% NACL 1,000 ML 150 MEQ IV (09:21)
[2019-04-20] MEDS: Acetaminophen 325 MG TAB 650 MG PO ×3 (09:39→23:25)
[2019-04-20 10:52] LABS: BE 4.6 mmol/L (-3-3); HCO3 25 mmol/L (22-28); pCO2 21 mmHg (34-47); pO2 109 mmHg (83-108); sO2 99 % (94-98); tCO2 21 mmol/L (22-29)
[2019-04-20 10:54] LABS: FIO2L R/A L; Site Left Brachial; pH 7.69 (7.35-7.45)
[2019-04-20 11:32] LABS: Bilirubin Negative (Negative); Blood Trace-intact (Negative); Clarity Clear; Glucose Negative (Negative); Ketones Negative (Negative); Leukocyte Esterase Negative (Negative); Nitrite Negative (Negative); Specific Gravity 1.015 (1.005-1.025); Urobilinogen 0.2 EU/dL (Up TO 0.2); pH 8.5 (5-8)
--- NOTE | 2019-04-20 11:38 | PT.INTREAT ---
Date of service: 04/20/19 Time of Service: 11:15 PT Notes Inpatient Physical Therapy Treatment Note [facility] Date: 04/20/19 SUBJECTIVE: Payal states that she feels as though her sensation and strength are coming back. She indicated that she would rather not get up right now as she has been up x 2 hours. She indicated that she would get up with every meal. Reports that she still requires the use of STEADY lift, as her legs are not there for her. OBJECTIVE: [] THEREX: performed a global LE strength and stabilization routine. See flowsheet for details. ASSESSMENT: tolerated session well. She does fatigue quickly, but seems to better compared to yesterday. Noted a bit of foot drop on the right. PLAN: will continue POC, progressing to tolerance. TREATMENT CODE/TIME: 15 min. TPx1.
[2019-04-20 12:24] LABS: Epithelial Cells Negative HPF (Negative); Other Cells Rare Transitional (Negative); WBC 0-2 HPF (0-5)
[2019-04-20 12:25] LABS: Bacteria Rare HPF (Negative); C & S Indicated? No; Casts Negative LPF (Negative); Crystals Negative HPF (Negative); Mucus Trace (Negative)
[2019-04-20 14:24] LABS: BE (Venous) 1.9 mmol/L (-3-3); HCO3 (Venous) 25 mmol/L (22-28); O2 Sat (Venous) 93 % (70-80); TCO2 (Venous) 22 mmol/L (22-29); pCO2 (Venous) 30 mm/Hg (34-47); pH (Venous) 7.52 (7.32-7.43); pO2 (Venous) 60 mm/Hg (28-44)
[2019-04-20 14:55] LABS: Anion Gap 11.4 mmol/L (3-11); BUN 5 mg/dL (7-18); CO2 23.6 mmol/L (21.0-32.0); Calcium 8.7 mg/dL (8.5-10.1); Chloride 108 mmol/L (98-107); Glucose 94 mg/dL (70-100); Potassium 3.6 mmol/L (3.5-5.1); Sodium 143 mmol/L (136-145)
[2019-04-20 15:34] LABS: Creatine Kinase > 10000 U/L (26-192)
[2019-04-20] MEDS: Normal Saline 1,000 ML 200 ML IV (17:37)
[2019-04-20] MEDS: cefTRIAXone 1 GM/50 ML BAG IVPB (17:40)
[2019-04-20] MEDS: Normal Saline Flush 10 ML SYR IVP ×2 (20:20→21:27)
[2019-04-21] MEDS: Normal Saline 1,000 ML 200 ML IV ×4 (03:10→22:00)
[2019-04-21 04:09] VITALS: BP 121/80; PULSE 83; RESP 16; TEMP 37.4; O2SAT 99
[2019-04-21] MEDS: metroNIDAZOLE 500 MG/100 ML BAG 100 MG IVPB ×4 (05:36→23:29)
[2019-04-21 07:03] LABS: HCO3 (Venous) 20 mmol/L (22-28); O2 Sat (Venous) 99 % (70-80); TCO2 (Venous) 18 mmol/L (22-29); pCO2 (Venous) 27 mm/Hg (34-47); pH (Venous) 7.49 (7.32-7.43); pO2 (Venous) 156 mm/Hg (28-44)
[2019-04-21 07:05] LABS: Abs Immature Grans 0.01 k/cumm (0.0-0.09); Absolute Basophil Count 0.02 k/cumm (0.0-0.2); Absolute Eosinophil Count 0.13 k/cumm (0.0-0.7); Absolute Lymphocyte Count 2.39 k/cumm (1.2-3.4); Absolute Monocyte Count 0.47 k/cumm (0.11-0.7); Absolute Neutrophil Count 3.22 k/cumm (1.2-6.7); Basophils % 0.3; Eosinophils % 2.1; HCT 41.3 % (36.0-46.0); HGB 13.8 g/dL (12.0-15.5); Immature Grans % 0.2; Lymphocytes % 38.3; Mean Corp. HGB Concentration 33.4 g/dL (32.0-36.0); Mean Corpuscular Hemoglobin 29.3 pg (27.0-33.0); Mean Corpuscular Volume 87.7 fL (80-95); Mean Platelet Volume 10.2 fL (8.0-11.0); Monocytes % 7.5; Neutrophils % 51.6; Platelet Count 232 x1000/uL (130-400); RBC 4.71 m/cumm (4.00-5.20); White Blood Cell Count 6.24 k/cumm (4.4-10.8)
[2019-04-21 07:44] LABS: ALT 290 U/L (12-78); AST 331 U/L (15-37); Albumin 2.9 g/dL (3.4-5.0); Alkaline Phosphatase 43 U/L (46-116); Anion Gap 8.6 mmol/L (3-11); BUN 6 mg/dL (7-18); Bilirubin, Direct 0.12 mg/dL (0.00-0.20); Bilirubin, Total 0.5 mg/dL (0.2-1.0); CO2 20.4 mmol/L (21.0-32.0); CREATININE 0.62 mg/dL (0.55-1.02); Calcium 8.4 mg/dL (8.5-10.1); Chloride 110 mmol/L (98-107); Glucose 110 mg/dL (70-100); Magnesium 1.9 mg/dL (1.8-2.4); Potassium 3.9 mmol/L (3.5-5.1); Sodium 139 mmol/L (136-145); Total Protein 5.9 g/dL (6.4-8.2)
[2019-04-21 07:45] VITALS: BP 137/90; PULSE 92; RESP 18; TEMP 37.2; O2SAT 98
[2019-04-21] MEDS: LORazepam 0.5 MG TAB PO ×3 (07:45→20:22)
[2019-04-21] MEDS: Acetaminophen 325 MG TAB 650 MG PO (07:45)
[2019-04-21] MEDS: Potassium Chloride 20 MEQ TABCR 40 MEQ PO ×2 (07:46→20:18)
[2019-04-21 08:02] LABS: Creatine Kinase > 10000 U/L (26-192)
--- NOTE | 2019-04-21 09:55 | PT.INTREAT ---
Date of service: 04/21/19 Time of Service: 09:55 PT Notes Inpatient Physical Therapy Treatment Note [facility] Date: 04/21/19 PRECAUTIONS: Suicide Prec SUBJECTIVE: Payal is agreeable to participating in PT. She reprots that just yesterday she was requring the STEDY lift for transfers, although she did use her FWW yesterday. She indicates that she would like to be able to walk, and that she does not feel that she is mentally ready to go home at this point. OBJECTIVE: PAIN: Patient c/o R groin pain with ther ex, and R LE discomfort with ther ex and gait BED MOBILITY/TRANSFERS Supine-sit: I with HOB flat Sit-supine: I with HOB flat Sit-stand: SBA Stand-sit: SBA Bed-Chair: CGA Chair-bed: CGA GAIT Assistive Device: FWW Weight bearing: WBAT B Assist: CGA Distance: 7' x2 in a.m.; 15' in p.m. THEREX: Patient completed a LE strengthening program, in a seated position in a.m. and a standing position in p.m., as per flow sheet. Patient requires seated rests between each exercise due to fagitue and B LE weakness. ASSESSMENT: Patient was able to tolerate a progression in gait training today, as she was able to ambulate with FWW versus requiring STEDY lift for assist with transfers. Patient would benefit from continued gait and transfer training, as well as strengthening for improved mobility and improved ability to perform daily functional tasks at a more independent level. PLAN: Continue with PT's POC TREATMENT CODE/TIME: Session 1: 20 minutes; 72804 Session 2: 25 minutes; [id number], [id number]
--- NOTE | 2019-04-21 10:42 | CMPROGNOTE_ITS ---
- If Service Date Differs Date of service: 04/21/19 Time of Service: 10:41 Care Management Progress Note S/O:CM received a call from Payal's mother Mariah this morning, stating that Payal was very upset and crying and asked if CM could visit. CM found Payal teary eyed and upset, talking with the Clinical Coordinator. Apparently overnight there were issues with the CPSO. Payal shared the details with the Clinical Coordinator, Ivonne Cook, and they have been addressed. CM visited Payal again this afternoon when she was sitting up in bed. She was smiling and stated that she was feeling better. The Safety Plan was reviewed with her and minor changes were made. Based on Payal's continued cooperation and engagement, she has been given shower privileges, can use a metal spoon and may have a few personal items as noted in the Safety Plan. CM will continue to follow. (see updated Safety Plan). The revised plan was approved by Safety Huddle team members. A: Payal is a 33 year old woman admitted to [facility] on 04/17/19 after and intentional opiate overdose P: Payal remains ICU level of care following an intentional opiate overdose. When medically cleared, mental health crisis will be contacted for re-evaluation and psychiatric stabilization, if appropriate. Payal has agreed to voluntarily go to an inpatient psychiatric facility when discharged. CM will continue to provide support to patient, family and discharge planning process.
--- NOTE | 2019-04-21 10:43 | CMSP_ITS ---
- If Service Date Differs Date of service: 04/21/19 Time of Service: 10:42 Care Management Safety Plan Payal is a 33 year old woman admitted to [facility] following an intentional overdose of liquid morphine. She has a history of depression and irritable bowel syndrome. SHAHID met with the patient. She states she has been feeling increasingly sad over the last 6 months or so. She did see a therapist in the past and said it helped. When asked why she did not seek help when she became sad again, she stated no one really cares or wants to hear about my issues. They are my issues, not theirs. She shared that it is difficult for her to talk about things. Arti noted that when she was young and growing up, if she was upset she would get yelled at or hit and told to stop crying, so she learned not to express her feelings. She states she does not think she wants to hurt herself now but added who knows in a few days. Arti is appropriate in all interactions since arriving at [facility]. She has demonstrated appropriate coping and communication skills and is engaged during staff interactions. Arti was seen by Darrell Roe from [facility] who documented that Arti now denies continued suicidal ideation and is agreeable to voluntary inpatient psychiatric treatment. Should Arti decide to leave [facility] however, she would need to be seen by [facility] and re-evaluated for emergency examination papers. Huddle participants: Liset Navarro RN, Xochitl TREVINOO, Brittney Alexandra RN CM, Ivonne Cook, Clinical Coordinator SAFETY PLAN: 1. Will remain on suicide precautions and in paper clothes or hospital gown. 2. Will remain in room under direct supervision of one-on-one staff at all times provided by a female REPLANTING MACHINE CREW, CONFIGURATION RELEASE MANAGER mortgage loan funder. 3. May have paper cups, plates, finger foods as well as a metal spoon with which to eat meals. Utensil will be retrieved by staff at the end of the meal. 4. Follow [facility] Management of the Admitted Behavioral Health Patient policy. 5. Shower privileges (with CPSO in attendance). 6. May have personal phone and mobile engineer, insulated mug, hairbrush, toothbrush and toothpaste. 7. Visitors at nursing discretion 8. Phone contact at nursing discretion. (see #6 above.) 9. Female care providers should be assigned whenever possible.
[2019-04-21] MEDS: traMADol 50 MG TAB PO ×2 (11:17→18:02)
[2019-04-21 11:32] VITALS: BP 113/78; PULSE 82; RESP 16; TEMP 37.1; O2SAT 98
--- NOTE | 2019-04-21 12:20 | OT.INIE ---
Occupational Therapy Notes Inpatient Occupational Therapy Evaluation Date: 04/21/19 Referring Doctor:Vera Gutiérrez MD OT Orders: Eval and Treat Precautions: Fall, Standard, Depression/Suicidal Ideation PATIENT PROFILE/ADMITTING DIAGNOSIS: Pt is a 33 year old female who was admitted through the ER for medical management of intentional drug overdose. Pt is very anxious in meeting people and only wants certain people present in her room. Past Medical History: Depression IBS (irritable bowel syndrome) Surgical History CERVICAL BIOPSY (04/29/13) Cervical Procedure (02/21/13) Tonsillectomy and adenoidectomy Social History/Home Situation: Pt lives in a two story home with her and two children 6 and 3. 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 She states that she has a tub/shower and walk in shower. She does not have grab bars. She was (I) prior to admission with ADLs/IADLs and child rearing responsibilities. Equipment owned/DME: None SUBJECTIVE: Pt was sitting in her bed when OT arrived. She was agreeable to OT session noting that she is not doing great, but is better than she was. 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 OBJECTIVE: General Observation: MoralesBOBY, IV (L) UE, pleasant, slightly emotional at times. Mental Status: A&Ox3 Pain: c/o pain in groin when bringing legs into flexion for (B) socks. However pt notes its not that bad. ROM: RUE AROM WNL L UE AROM WNL STRENGTH: RUE Shoulder flexion 4/5, bicep 4+/5, tricep 4/5, director internal control is strong LUE Shoulder flexion 4+/5, bicep 4-/5, tricep 4/5, director internal control is strong FUNCTIONAL MOBILITY/ADLS: Transfers Supine-sit (S) Sit-Stand Mod (A), CGA Stand-sit Mod (A), CGA Bed-Commode CGA, FWW Commode-bed CGA, FWW BATHING Sitting on commode with max (A) set up Bathing UE (I) Bathing LE (I) with vc to lift (B) LE DRESSING seated position Dressing UE (I) [facility] gown Dressing LE Sitting in bed, (I) don and doff (B) socks. GROOMING NT TOILETING Pt was able to transfer to the commode but did not need to go. EATING NT pt was going to eat post OT session. BALANCE: Static sitting Normal Dynamic Sitting Normal Static Standing Good Dynamic Standing Fair SPECIAL TESTS: Daily Activity Limitations Standardized Measure [facility] AM -PAC ?6 clicks? Daily Activity Inpatient Short Form: Raw score: 23 INFORMED CONSENT/EDUCATION: Pt instructed in purpose of OT Consult and plan of care. ASSESSMENT: Patient is a 33-year-old female referred to occupational therapy services with diagnosis of medical management for intentional drug overdose. Patient presents with clinical signs and symptoms consistent with dx, as demonstrated by the following impairment level findings: Decreased functional activity tolerance, suicidal ideation/depression, in ablility to perform child rearing functional activities at this time. Impairments are contributing to the following functional limitations: Decreased functional mobility to perform ADLs/IADLs and functional activities, severe depression/suicidal ideation, decreased self esteem. AMPAC score 23 Patient is assessed as a Low 44868 complexity based on the following: History: See Above Examination: See Above Presentation: Evolving Decision Making: AMPAC score 23 GOALS N/A PLAN OF CARE/TREATMENT PLAN: OT consult only. DISCHARGE RECOMMENDATIONS Pt will most likely require further psychological consultation. Functional abilities, she is (I) with ADLs/IADLs with vc. She does not feel that she requires OT services at this time, OT agrees with this. Pts main concern is her ability to walk at this time. Pt does not feel that she is ready to resume child rearing responsibilities at this time. TREATMENT TIME/MINUTES/CODES 55037, [id number], 35 minutes (08:15) Ginger Bryson OTR/[facility]
--- NOTE | 2019-04-21 12:25 | OTIE_ITS ---
Occupational Therapy Notes Inpatient Occupational Therapy Evaluation Date: 04/21/19 Referring Doctor:Vera Gutiérrez MD OT Orders: Eval and Treat Precautions: Fall, Standard, Depression/Suicidal Ideation PATIENT PROFILE/ADMITTING DIAGNOSIS: Pt is a 33 year old female who was admitted through the ER for medical management of intentional drug overdose. Pt is very anxious in meeting people and only wants certain people present in her room. Past Medical History: Depression IBS (irritable bowel syndrome) Surgical History CERVICAL BIOPSY (04/29/13) Cervical Procedure (02/21/13) Tonsillectomy and adenoidectomy Social History/Home Situation: Pt lives in a two story home with her and two children 6 and 3. 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 She states that she has a tub/shower and walk in shower. She does not have grab bars. She was (I) prior to admission with ADLs/IADLs and child rearing responsibilities. Equipment owned/DME: None SUBJECTIVE: Pt was sitting in her bed when OT arrived. She was agreeable to OT session noting that she is not doing great, but is better than she was. 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 OBJECTIVE: General Observation: MoralesBOBY, IV (L) UE, pleasant, slightly emotional at times. Mental Status: A&Ox3 Pain: c/o pain in groin when bringing legs into flexion for (B) socks. However pt notes its not that bad. ROM: RUE AROM WNL L UE AROM WNL STRENGTH: RUE Shoulder flexion 4/5, bicep 4+/5, tricep 4/5, hospital laboratory technician is strong LUE Shoulder flexion 4+/5, bicep 4-/5, tricep 4/5, hospital laboratory technician is strong FUNCTIONAL MOBILITY/ADLS: Transfers Supine-sit (S) Sit-Stand Mod (A), CGA Stand-sit Mod (A), CGA Bed-Commode CGA, FWW Commode-bed CGA, FWW BATHING Sitting on commode with max (A) set up Bathing UE (I) Bathing LE (I) with vc to lift (B) LE DRESSING seated position Dressing UE (I) [facility] and [facility] gown Dressing LE Sitting in bed, (I) don and doff (B) socks. GROOMING NT TOILETING Pt was able to transfer to the commode but did not need to go. EATING NT pt was going to eat post OT session. BALANCE: Static sitting Normal Dynamic Sitting Normal Static Standing Good Dynamic Standing Fair SPECIAL TESTS: Daily Activity Limitations Standardized Measure [facility] AM -PAC ?6 clicks? Daily Activity Inpatient Short Form: Raw score: 23 INFORMED CONSENT/EDUCATION: Pt instructed in purpose of OT Consult and plan of care. ASSESSMENT: Patient is a 33-year-old female referred to occupational therapy services with diagnosis of medical management for intentional drug overdose. Patient presents with clinical signs and symptoms consistent with dx, as demonstrated by the following impairment level findings: Decreased functional activity tolerance, suicidal ideation/depression, in ablility to perform child rearing functional activities at this time. Impairments are contributing to the following functional limitations: Decreased functional mobility to perform ADLs/IADLs and functional activities, severe depression/suicidal ideation, decreased self esteem. AMPAC score 23 Patient is assessed as a Low 15440 complexity based on the following: History: See Above Examination: See Above Presentation: Evolving Decision Making: AMPAC score 23 GOALS N/A PLAN OF CARE/TREATMENT PLAN: OT consult only. DISCHARGE RECOMMENDATIONS Pt will most likely require further psychological consultation. Functional abilities, she is (I) with ADLs/IADLs with vc. She does not feel that she requires OT services at this time, OT agrees with this. Pts main concern is her ability to walk at this time. Pt does not feel that she is ready to resume child rearing responsibilities at this time. TREATMENT TIME/MINUTES/CODES 83019, 33982, 35 minutes (08:15) Ginger Bryson OTR/[facility]
--- NOTE | 2019-04-21 12:25 | W.PM.PROGNOT ---
Date of Service Date of service: 04/21/19 Time of Service: 12:26 Assessment and Plan (1) Rhabdomyolysis: Current visit: Yes Status: Acute Continue NS. pH remains mildly alkalotic - does not need resumption of bicarb gtt. Continue to trend CPK. AST/ALT are improving - so, even though her reported CPK is still greater than 10,000, my impression is that her rhabdomyolysis is improving. Cr remains stable. No indication to even consider HD at this time. Patient is medically stable to remain at our facility until being cleared - and she would prefer not being transferred to a tertiary care facility if what we are doing is working. Continue IVF. Ok to d/c campbell, but continue to monitor I/O's and daily weights. Ok to monitor on a medical surgical floor. (2) Aspiration pneumonitis: Current visit: Yes Status: Acute Continue ceftriaxone/flagyl. Repeat CXR tomorrow. (3) Suicide attempt by drug overdose: Current visit: Yes Status: Acute As above. Patient is not so sure that she would not try to hurt herself again, per my conversation with her again today - therefore, I feel she continues to require a CPSO. Mental health recommends inpatient psychiatric hospitalization once medically cleared - it is voluntary in this case. (4) Anxiety: Current visit: No Status: Acute prn ativan (5) Depression: Current visit: Yes Status: Chronic As above (6) Leg weakness, bilateral: Current visit: Yes Status: Acute Likely due to rhabdomyolysis. The MRI of the spine is negative. Continue to treat rhabdo; PT/OT. Consult neurology given presence of reported numbness and paresthesias (7) Hypokalemia: Current visit: Yes Status: Acute repleted (8) Black stools: Current visit: Yes Status: Acute Check hemoccult Add PPI. (9) Discharge planning issues: Current visit: Yes Status: Acute Full code. For voluntary psychiatric hospitalization once medically stable. Continues to require medical care for rhabdomyolysis. Patient would rather not get transferred to a tertiary care facility as long as she continues to feel better. (10) DVT prophylaxis: Current visit: Yes Status: Acute Not requiring chemical DVT ppx due to age. TEDs Subjective Interval history since last seen: Payal still gets very sad and anxious. Sometimes in these waves of emotion she still maybe feels like hurting herself. What is most upsetting to her today is that her boyfriend is being distant and all she really wants is for him to hold her hand, but he is angry with what had happened. Today she got a little dizzy when going to the bathroom. She had a dark BM. She feels nauseated - she thinks maybe from the metronidazole. She denies chest pain, shortness of breath. She has a nonproductive cough. Her legs still feel weak, but better - she was able to ambulate today and did not need a lift to help get up. The numbness she describes as heaviness today - and that's still there. She continues to report parasthesias with exertion only. When asked about being transferred to a different facility for continued medical care prior to psychiatric hospitalization, the patient stated she didn't think she wanted to, given the fact that the current treatment seems to be working. Exam Narrative Exam Narrative: General: Very pleasant female, sitting in a chair, gets tearful when talking about her boyfriend, anxious HEENT: EOMI, MMM Heart: RRR, no m/r/g Lungs: CTAB GI: abdomen is soft, nontender, nondistended Extremities: No edema BLE's, no c/c; 5/5 strength in BLE today Objective Objective Clinical Data: Abnormal lab results 04/17/19 04/20/19 04/20/19 Range/Units 17:00 10:20 14:14 VBG pH (7.32-7.43) VBG pCO2 (34-47) mm/Hg VBG pO2 (28-44) mm/Hg VBG HCO3 (22-28) mmol/L VBG Total CO2 (22-29) mmol/L VBG O2 Saturation (70-80) % Chloride 108 H (98-107) mmol/L Carbon Dioxide (21.0-32.0) mmol/L Anion Gap 11.4 H (3-11) mmol/L BUN 5 L (7-18) mg/dL Glucose (70-100) mg/dL Calcium (8.5-10.1) mg/dL AST (15-37) U/L ALT (12-78) U/L Alkaline Phosphatase (46-116) U/L Creatine Kinase > 82505 H (26-192) U/L Total Protein (6.4-8.2) g/dL Albumin (3.4-5.0) g/dL Urine RBC 3-5 H (0-2) Urine Myoglobin >5000 H (<=21) mcg/L 04/20/19 04/21/19 04/21/19 Range/Units 14:14 06:35 06:35 VBG pH 7.52 H 7.49 H (7.32-7.43) VBG pCO2 30 L 27 L (34-47) mm/Hg VBG pO2 60 H 156 H (28-44) mm/Hg VBG HCO3 20 L (22-28) mmol/L VBG Total CO2 18 L (22-29) mmol/L VBG O2 Saturation 93 H 99 H (70-80) % Chloride 110 H (98-107) mmol/L Carbon Dioxide 20.4 L (21.0-32.0) mmol/L Anion Gap (3-11) mmol/L BUN 6 L (7-18) mg/dL Glucose 110 H (70-100) mg/dL Calcium 8.4 L (8.5-10.1) mg/dL AST 331 H (15-37) U/L ALT 290 H (12-78) U/L Alkaline Phosphatase 43 L (46-116) U/L Creatine Kinase > 17135 H (26-192) U/L Total Protein 5.9 L (6.4-8.2) g/dL Albumin 2.9 L (3.4-5.0) g/dL Urine RBC (0-2) Urine Myoglobin (<=21) mcg/L Vital Signs Temperature 37.1 C 04/21/19 11:32 Temperature Source Temporal Artery Scan 04/21/19 11:32 Pulse 82 04/21/19 11:32 Pulse Rhythm Regular 04/21/19 07:45 Pulse 76 04/20/19 16:28 Respiratory Rate 16 04/21/19 11:32 Respiratory Effort Non-Labored 04/21/19 07:45 Respiratory Depth Normal 04/21/19 07:45 Respiratory Pattern Normal 04/21/19 07:45 Blood Pressure 113/78 04/21/19 11:32 Blood Pressure Mean 81 04/20/19 16:28 Blood Pressure Position Supine 04/20/19 00:00 Pulse Oximetry 98 04/21/19 11:32 Respiratory End-tidal CO2 10 06/14/19 09:01 Oxygen Delivery Method Room Air 04/21/19 11:32 Oxygen Flow Rate 0 04/21/19 11:32 End Tidal Co2 32 04/17/19 16:17 Pain Level 3 04/21/19 12:17 Comment 04/20/19 17:57 Intake & Output 04/20/19 04/21/19 04/21/19 23:59 11:59 23:59 Intake Total 2150 / 5922.5 2400 / 2400 Output Total 2100 / 0 2049 Balance 50 / 1072.5 350 / 350 Weight 81.9 kg Intake: IV 1250 / 4182.5 1200 / 1200 Oral 900 / 1740 1200 / 1200 Output: Urine 2099 / 0 2049 Other: Urine Color Light Yue Yellow Urine Appearance Clear Clear Urine Odor None Comment campbell to gravity Stool Size Moderate Stool Characteristics Soft Laboratory Results WBC 6.24 k/cumm (4.4-10.8) 04/21/19 06:35 RBC 4.71 m/cumm (4.00-5.20) 04/21/19 06:35 Hgb 13.8 g/dL (12.0-15.5) 04/21/19 06:35 Hct 41.3 % (36.0-46.0) 04/21/19 06:35 MCV 87.7 fL (80-95) 04/21/19 06:35 MCH 29.3 pg (27.0-33.0) 04/21/19 06:35 MCHC 33.4 g/dL (32.0-36.0) 04/21/19 06:35 RDW 14.0 % (11.7-14.6) 04/21/19 06:35 Plt Count 232 x1000/uL (130-400) 04/21/19 06:35 MPV 10.2 fL (8.0-11.0) 04/21/19 06:35 Immature Gran % 0.2 04/21/19 06:35 Neutrophils % 51.6 04/21/19 06:35 Lymphocytes % 38.3 04/21/19 06:35 Monocytes % 7.5 04/21/19 06:35 Eosinophils % 2.1 04/21/19 06:35 Basophils % 0.3 04/21/19 06:35 Absolute Neutrophils 3.22 k/cumm (1.2-6.7) 04/21/19 06:35 Absolute Lymphocytes 2.39 k/cumm (1.2-3.4) 04/21/19 06:35 Absolute Monocytes 0.47 k/cumm (0.11-0.7) 04/21/19 06:35 Absolute Eosinophils 0.13 k/cumm (0.0-0.7) 04/21/19 06:35 Absolute Basophils 0.02 k/cumm (0.0-0.2) 04/21/19 06:35 Differential Comment Diff reviewed 04/17/19 16:20 RBC Morphology Normal 04/17/19 16:20 Sample Site Left brachial 04/20/19 07:41 pCO2 21 mmHg (34-47) L 04/20/19 07:41 pO2 109 mmHg (83-108) H 04/20/19 07:41 O2 Saturation 99 % (94-98) H 04/20/19 07:41 ABG pH 7.69 (7.35-7.45) H* 04/20/19 07:41 ABG HCO3 25 mmol/L (22-28) 04/20/19 07:41 ABG Total CO2 21 mmol/L (22-29) L 04/20/19 07:41 ABG Base Excess 4.6 mmol/L (-3-3) H 04/20/19 07:41 VBG pH 7.49 (7.32-7.43) H 04/21/19 06:35 VBG pCO2 27 mm/Hg (34-47) L 04/21/19 06:35 VBG pO2 156 mm/Hg (28-44) H 04/21/19 06:35 VBG HCO3 20 mmol/L (22-28) L 04/21/19 06:35 VBG Total CO2 18 mmol/L (22-29) L 04/21/19 06:35 VBG O2 Saturation 99 % (70-80) H 04/21/19 06:35 VBG Base Excess -3.0 mmol/L (-3-3) 04/21/19 06:35 Oxygen Liter Flow R/a L 04/20/19 07:41 Sodium 139 mmol/L (136-145) 04/21/19 06:35 Potassium 3.9 mmol/L (3.5-5.1) 04/21/19 06:35 Chloride 110 mmol/L (98-107) H 04/21/19 06:35 Carbon Dioxide 20.4 mmol/L (21.0-32.0) L 04/21/19 06:35 Anion Gap 8.6 mmol/L (3-11) 04/21/19 06:35 BUN 6 mg/dL (7-18) L 04/21/19 06:35 Creatinine 0.62 mg/dL (0.55-1.02) 04/21/19 06:35 Estimated GFR/1.73 m2 >= 60.00 (mL/min/1.73m2) 04/21/19 06:35 Glucose 110 mg/dL (70-100) H 04/21/19 06:35 Calcium 8.4 mg/dL (8.5-10.1) L 04/21/19 06:35 Magnesium 1.9 mg/dL (1.8-2.4) 04/21/19 06:35 Total Bilirubin 0.5 mg/dL (0.2-1.0) 04/21/19 06:35 Conjugated Bilirubin 0.12 mg/dL (0.00-0.20) 04/21/19 06:35 AST 331 U/L (15-37) H 04/21/19 06:35 ALT 290 U/L (12-78) H 04/21/19 06:35 Alkaline Phosphatase 43 U/L (46-116) L 04/21/19 06:35 Creatine Kinase > 22360 U/L (26-192) H 04/21/19 06:35 Total Protein 5.9 g/dL (6.4-8.2) L 04/21/19 06:35 Albumin 2.9 g/dL (3.4-5.0) L 04/21/19 06:35 TSH 3.13 uIU/mL (0.358-3.74) 04/17/19 16:20 Serum HCG, Qual Negative 04/17/19 16:20 Urine Color Yellow (Yellow) 04/20/19 10:20 Urine Clarity Clear 04/20/19 10:20 Urine pH 8.5 (5-8) H 04/20/19 10:20 Ur Specific [place] 1.015 (1.005-1.025) 04/20/19 10:20 Urine Protein Negative mg/dL (Negative) 04/20/19 10:20 Urine Ketones Negative mg/dL (Negative) 04/20/19 10:20 Urine Blood Trace-intact (Negative) H 04/20/19 10:20 Urine Nitrite Negative (Negative) 04/20/19 10:20 Urine Bilirubin Negative (Negative) 04/20/19 10:20 Urine Urobilinogen 0.2 EU/dL (Up TO 0.2) 04/20/19 10:20 Ur Leukocyte Esterase Negative (Negative) 04/20/19 10:20 Urine RBC 3-5 (0-2) H 04/20/19 10:20 Urine WBC 0-2 HPF (0-5) 04/20/19 10:20 Ur Epithelial Cells Negative HPF (Negative) 04/20/19 10:20 Urine Crystals Negative HPF (Negative) 04/20/19 10:20 Urine Bacteria Rare HPF (Negative) 04/20/19 10:20 Urine Casts Negative LPF (Negative) 04/20/19 10:20 Urine Mucus Trace (Negative) 04/20/19 10:20 Urine Other Rare transitional (Negative) 04/20/19 10:20 Ur Culture Indicated? No 04/20/19 10:20 Urine Myoglobin >5000 mcg/L (<=21) H 04/17/19 17:00 Urine Glucose Negative mg/dL (Negative) 04/20/19 10:20 Salicylates 4.1 mg/dL (2.8-20.0) 04/17/19 16:20 Urine Opiates Screen Positive (Negative) 04/17/19 17:03 Urine Methadone Screen Negative (Negative) 04/17/19 17:03 Acetaminophen < 2 ug/mL (10-30) L 04/17/19 16:20 Ur Barbiturates Screen Negative (Negative) 04/17/19 17:03 Ur Tricyclics Screen Negative (Negative) 04/17/19 17:03 Ur Amphetamines Screen Negative (Negative) 04/17/19 17:03 U Benzodiazepines Scrn Negative (Negative) 04/17/19 17:03 Urine Cocaine Screen Negative (Negative) 04/17/19 17:03 Ur THC Screen Positive (Negative) 04/17/19 17:03 Ethyl Alcohol < 3.0 mg/dL (<3) 04/17/19 16:20
[2019-04-21] MEDS: Pantoprazole 40 MG TABCR PO (13:41)
[2019-04-21 14:48] LABS: ALT 290 U/L (12-78); AST 321 U/L (15-37); Alkaline Phosphatase 46 U/L (46-116); Anion Gap 10.3 mmol/L (3-11); BUN 6 mg/dL (7-18); Bilirubin, Direct 0.13 mg/dL (0.00-0.20); Bilirubin, Total 0.6 mg/dL (0.2-1.0); CO2 21.7 mmol/L (21.0-32.0); CREATININE 0.62 mg/dL (0.55-1.02); Calcium 8.7 mg/dL (8.5-10.1); Chloride 110 mmol/L (98-107); Glucose 98 mg/dL (70-100); Sodium 142 mmol/L (136-145)
--- NOTE | 2019-04-21 15:07 | NCONE_ITS ---
Date of service: 04/21/19 Time of Service: 15:07 Assessment and Plan (1) Leg weakness, bilateral: Current visit: Yes Status: Acute (2) Rhabdomyolysis: Current visit: Yes Status: Acute Ms. Subramanian is a 33-year-old, right-handed woman who was admitted on 04/17/2019 after she was found down for an unknown period of time (>8hours) after a suicide attempt by opiate overdose, complicated by aspiration pneumonitis and severe rhabdomyolysis. She has bilateral lower extremity weakness with minor vague sensory complaints as well, all of which have slowly improved. Her neurological exam was significant for mainly proximal lower extremity weakness, nonphysiologic sensory changes, and distal hyporeflexia. Her clinical history a nd exam findings all seem to be attributable to her severe rhabdomyolysis. I discussed this with her. She is improving already and I suspect that she will continue to improve. She should continue physical therapy. If her clinical symptoms do not resolve in the next 1 month, she should be referred to the neurology clinic to be evaluated as an outpatient. Thank you for this consultation. Please call with any further questions or concerns. DISCLAIMER: This note was created using [employer] voice recognition software. History of Present Illness Chief Complaint: bilateral LE numbness Narrative: Handedness: right. HPI: Ms. Subramanian is a 33-year-old woman with a past medical history of anxiety irritable bowel syndrome. She was admitted on 04/17/2019 after she was found down for an unknown period of time (>8hours) after a suicide attempt by opiate overdose, complicated by aspiration pneumonitis and severe rhabdomyolysis. Since admission, she has had bilateral lower extremity weakness, right leg greater than left leg along with a numb/tingling/heavy feeling, worse distally than proximally. These symptoms are not painful but more uncomfortable. The sensory symptoms have improved and are slowly descending down the leg. She has also had improvement in her strength. She was able to walk with a walker today and get out of bed with out a lift. She has a prior history of intermittent numbness in her toes bilaterally which she attributed to chronic thoracic back pain which remains unchanged at this admission. She has some pain in her right inguinal canal that is new. After walking today, she had a brief cramp in her right calf. She does not note any muscle ache or myalgias. Her creatinine has remained normal this admission. Her initial creatinine kinase was 4648 and has been undetectable at greater than 10,000 since. Her LFTs have also been elevated and peaked in the 500s and have since been trending down. She had a normal TSH. Upon admission, she had a CT head which I was able to review. It was unremarkable. She also underwent an MRI of her thoracic and lumbar spines. I was able to review those images. Studies were limited as no axials were performed. I am not sure why. Based on the sagittal views, I could not see any abnormalities. Consults Requesting physician: Vera Gutiérrez Review of Systems Review of Systems All systems reviewed & are unremarkable except as noted in HPI and below Gastrointestinal Reports other (reduced appetite) FOR[facility]LY [facility], [facility] Medical History Depression IBS (irritable bowel syndrome) Surgical History CERVICAL BIOPSY (04/29/13) Cervical Procedure (02/21/13) Tonsillectomy and adenoidectomy Family History Sister Hypothyroid Depression Mother No problems noted. 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 What type of physical activity do you participate in: walking Duration: 15-30 minutes/day Frequency: 1-2 times per week Seatbelt use: always Helmet use: Yes Drive intox or ride w/intox transport driver: No Do you feel safe in your relationship?: Yes Additional Social history: pt currently not answering Visit Medication and Allergies Active Medications Generic Name Dose Route Start Last Admin Trade Name Freq PRN Reason Stop Dose Admin Acetaminophen 650 mg 04/19/19 08:42 04/21/19 07:45 Tylenol PO 650 mg Q6H PRN PRN Administration Albuterol Sulfate 2.5 mg 04/17/19 19:14 Proventil Updraft UPD Q2H PRN PRN Albuterol/Ipratropium 3 ml 04/19/19 10:17 Duoneb Updraft UPD Q6H PRN PRN Dimethicone/Zinc Oxide 0 gm 04/17/19 19:14 Jeanna Protect Cream TP PRN PRN Metronidazole 500 mg in 100 mls @ 100 mls/hr 04/18/19 00:00 04/21/19 11:19 Flagyl IVPB 100 mls/hr Q6H JOHNNIE Administration Ceftriaxone Sodium/Dextrose 1 gm in 50 mls @ 100 mls/hr 04/18/19 18:00 04/20/19 18:10 Rocephin IVPB Infused Q24H JOHNNIE Infusion Sodium Chloride 1,000 mls @ 200 mls/hr 04/20/19 10:15 04/21/19 14:41 Saline 1000ml Bag IV 200 mls/hr INFUSION JOHNNIE Administration IV Miscellaneous Supplies 1 each 04/17/19 18:30 IV DIRECTED JOHNNIE Lorazepam 0.5 mg 04/19/19 14:29 04/21/19 11:17 Ativan PO 0.5 mg TID PRN PRN Administration Naloxone HCl 0.4 mg 04/17/19 20:25 Narcan IVP DIRECTED PRN hypoxemia, hypercarbia or apnea Pantoprazole Sodium 40 mg 04/22/19 07:30 Protonix PO DAILY@0730 JOHNNIE Potassium Chloride 40 meq 04/19/19 20:00 04/21/19 07:46 K-Dur PO 40 meq BID JOHNNIE Administration Sodium Chloride 0 ml 04/17/19 18:25 04/20/19 21:27 Saline Flush 10 Ml Syringe IVP 20 ml PRN PRN Administration Tramadol HCl 50 mg 04/18/19 18:44 04/21/19 11:17 Ultram PO 50 mg Q6H PRN PRN Administration Allergies No Known Allergies Allergy (Verified 04/17/19 17:17) Exam Narrative Exam Narrative: Physical Exam: Gen: Patient of apparent stated age, NAD Head and face: no facial or cranial abnormalities Neck: Supple, no meningismus, no occipital tenderness CV: + S1, S2, RRR, no murmur Resp: CTA B/L Abd: soft, nontender, nondistended Ext: No edema. No clubbing or cyanosis. No bony deformity. Neuro Exam: Language: fluency, naming, repetition, and comprehension intact; Mental Status: AAOx3, current events intact, fund of knowledge intact; Speech: no dysarthria Cranial nerves: Funduscopy: not performed CN II: visual blandon intact CN III, IV, : extraocular movements intact, no nystagmus, pupils symmetric and reactive to light CN V: face sensation intact to LT and PP CN VII: no facial asymmetry noted CN VIII: hearing intact bilaterally CN IX, X: palate rises symmetrically CN XI: trapezius/SCM 5/5 bilaterally CN XII: protrudes tongue symmetrically Sensory: reduced to LT in the bilateral LE, distally > proximally, L>R; patchy reduced PP mainly in RLE in a non-stocking glove, non-radicular distribution; reduced vibration in the right toe compared to the left but intact compared to knee; absent joint position sense in right great toe only; Motor: bulk and tone intact. Fine motor movements intact bilaterally. No pronator drift. Strength 5/5 throughout the UE. 4-/5 R and 4+/5 L hip flexor. 5/5 strength all else in LE with noted give way weakness in right ankle. Reflexes: brisk in the bilateral UE and left patella; reduced at the right patella and absent in the bilateral achilles; toes down going bilaterally; Coordination: FTN and HTS intact bilaterally Gait: deferred Results Last Vital Signs Temp 37.1 C 04/21/19 11:32 Pulse 82 04/21/19 11:32 Resp 16 04/21/19 11:32 BP 113/78 04/21/19 11:32 Pulse Ox 98 04/21/19 11:32 Labs : 04/21/19 06:35 04/21/19 13:55 Laboratory Results - last 24 hr 04/17/19 04/20/19 04/21/19 17:00 14:14 06:35 WBC RBC Hgb Hct MCV MCH MCHC RDW Plt Count MPV Immature Gran % Neutrophils % Lymphocytes % Monocytes % Eosinophils % Basophils % Absolute Neutrophils Absolute Lymphocytes Absolute Monocytes Absolute Eosinophils Absolute Basophils VBG pH 7.49 H VBG pCO2 27 L VBG pO2 156 H VBG HCO3 20 L VBG Total CO2 18 L VBG O2 Saturation 99 H VBG Base Excess -3.0 Sodium 143 Potassium 3.6 Chloride 108 H Carbon Dioxide 23.6 Anion Gap 11.4 H BUN 5 L Creatinine 0.70 Estimated GFR/1.73 m2 >= 60.00 Glucose 94 Calcium 8.7 Magnesium Total Bilirubin Conjugated Bilirubin AST ALT Alkaline Phosphatase Creatine Kinase > 55461 H Total Protein Albumin Urine Myoglobin >5000 H 04/21/19 04/21/19 06:35 06:35 WBC 6.24 RBC 4.71 Hgb 13.8 Hct 41.3 MCV 87.7 MCH 29.3 MCHC 33.4 RDW 14.0 Plt Count 232 MPV 10.2 Immature Gran % 0.2 Neutrophils % 51.6 Lymphocytes % 38.3 Monocytes % 7.5 Eosinophils % 2.1 Basophils % 0.3 Absolute Neutrophils 3.22 Absolute Lymphocytes 2.39 Absolute Monocytes 0.47 Absolute Eosinophils 0.13 Absolute Basophils 0.02 VBG pH VBG pCO2 VBG pO2 VBG HCO3 VBG Total CO2 VBG O2 Saturation VBG Base Excess Sodium 139 Potassium 3.9 Chloride 110 H Carbon Dioxide 20.4 L Anion Gap 8.6 BUN 6 L Creatinine 0.62 Estimated GFR/1.73 m2 >= 60.00 Glucose 110 H Calcium 8.4 L Magnesium 1.9 Total Bilirubin 0.5 Conjugated Bilirubin 0.12 AST 331 H ALT 290 H Alkaline Phosphatase 43 L Creatine Kinase > 90351 H Total Protein 5.9 L Albumin 2.9 L Urine Myoglobin
[2019-04-21 15:15] LABS: Creatine Kinase 8271 U/L (26-192)
--- NOTE | 2019-04-21 15:20 | CHAPLAIN ---
Payal's partner and two kids were visiting when I stopped in. I mentioned that I had seen Rev. Sofya Cheema, the cleaners from [facility] Payal [facility] here and guessing she was here to visit Payal. Payal said she didn't get to see Sofya because others were in her room, but she said she is aware of Sofya's support and appreciates it. Sofya visited on Sunday and Sunday as well. Payal said Sofya brought cards from coworkers but she hasn't read them yet. I will continue to check in with Payal.
[2019-04-21 17:29] LABS: CK Total 13108 U/L (30-135)
[2019-04-21] MEDS: cefTRIAXone 1 GM/50 ML BAG IVPB (17:46)
[2019-04-22] MEDS: Normal Saline 1,000 ML 200 ML IV ×4 (02:47→23:39)
[2019-04-22] MEDS: Acetaminophen 325 MG TAB 650 MG PO ×3 (03:48→16:01)
[2019-04-22 03:59] VITALS: BP 114/71; PULSE 77; RESP 17; TEMP 36.9; O2SAT 100
[2019-04-22] MEDS: metroNIDAZOLE 500 MG/100 ML BAG 100 MG IVPB ×3 (05:43→18:34)
[2019-04-22 07:26] LABS: ALT 251 U/L (12-78); AST 225 U/L (15-37); Albumin 2.8 g/dL (3.4-5.0); Alkaline Phosphatase 42 U/L (46-116); Anion Gap 7.7 mmol/L (3-11); BUN 7 mg/dL (7-18); Bilirubin, Direct 0.12 mg/dL (0.00-0.20); Bilirubin, Total 0.5 mg/dL (0.2-1.0); CO2 23.3 mmol/L (21.0-32.0); CREATININE 0.71 mg/dL (0.55-1.02); Calcium 8.4 mg/dL (8.5-10.1); Chloride 109 mmol/L (98-107); Glucose 96 mg/dL (70-100); Potassium 4.1 mmol/L (3.5-5.1); Sodium 140 mmol/L (136-145); Total Protein 5.7 g/dL (6.4-8.2)
[2019-04-22 07:31] LABS: Creatine Kinase 4787 U/L (26-192)
[2019-04-22 08:10] VITALS: BP 110/75; PULSE 86; RESP 18; TEMP 37; O2SAT 99
[2019-04-22] MEDS: Potassium Chloride 20 MEQ TABCR 40 MEQ PO (08:29)
[2019-04-22] MEDS: Pantoprazole 40 MG TABCR PO (08:29)
[2019-04-22] MEDS: LORazepam 0.5 MG TAB PO ×2 (08:30→19:01)
--- NOTE | 2019-04-22 10:10 | PDOC.CMSAFE ---
Care Management Safety Plan Arti is appropriate in all interactions since arriving at [facility]. She has demonstrated appropriate coping and communication skills and is engaged during staff interactions. Arti continues to struggle with suicidal ideation and at this time is agreeable to voluntary inpatient psychiatric treatment. She was sitting up on her bed when CM met with her, she was appropriate in interaction and forthcoming with information. She reported wanting to transfer to [facility] or [facility] and not wanting to attend program. [facility] [place] [facility] an appropriate program for Payal as well. Payal reported feeling that she needed adjustment to her medications and was feeling well supported and validated while at [facility] but had felt very alone and unsupported in the community prior to admission. She verbalized understanding of the MH process and medical clearance. She shared that she had not been taking her prescribed medications since admission to [facility], she identified times her anxiety has spiked including when she transferred out of ICU to MED/SURG; CM facilitated discussion around transfer process, unknowns in timing and disposition and supported transport to ensure Payal was well informed and could prepare for this transition. Payal advocated for being able to shower and shave as well as have her own deodorant. CM reviewed policy and safety planning; Payal advocated for BELINDA LeungO/ZAYDA to be permitted to shave her underarms for her; CM spoke with team who was in agreement. CM provided review of process as example of how team could best serve Payal when she continues to verbalize her needs. She was receptive to this discussion. Payal continues to be closely monitored as per MD, her CPK has not normalized and would need to lower to less than 800 for Payal to be medically cleared for transfer to psychiatric stabilization. Should Arti wants to leave [facility], she would need to be seen by [facility] Crisis Screener and re-evaluated prior to discharge. Huddle participants: Kenya PORTILLO, Kapil TREVINOO, Nancie KEY, Supriya Clinical Coordinator, Cynthia PORTILLO Rod Mill Tender SAFETY PLAN: 1. Will remain on suicide precautions and in paper clothes or hospital gown. 2. Permitted to ambulate outside of room with [facility] staff escort at RN discretion. 3. May have paper cups, plates, finger foods as well as a metal spoon with which to eat meals. Utensil will be retrieved by staff at the end of the meal. 4. Follow [facility] Management of the Admitted Behavioral Health Patient policy. 5. Shower privileges (with CPSO in attendance). CPSO/BLADE GROOVER approved to provide shaving of armpits and legs (as patient has advocated for) at patient and RN discretion. 6. May have personal phone and house steward/stewardess, insulated mug, hairbrush, toothbrush and toothpaste, deodorant. 7. Visitors permitted at nursing discretion. 8. Female care providers should be assigned when available. Patient is currently voluntarily at [facility] and seeking inpatient admission when a bed becomes available. [facility] Frontline Pouncer will continue seeking placement. Please contact the Maintenance Coordinator Casey Saw Operator ([phone]) and [facility] Pouncer ([phone]) for any needed changes in the Safety Plan. Safety plan has been provided to interdepartmental care team.
--- NOTE | 2019-04-22 10:28 | PT.INTREAT ---
Date of service: 04/22/19 Time of Service: 10:29 PT Notes Inpatient Physical Therapy Treatment Note [facility] Date: 04/22/19 PRECAUTIONS: Suicidal Ideation, Fall SUBJECTIVE: Payal reports that she is feeling better today, she feels that she is getting stronger. OBJECTIVE: PAIN: No c/o pain BED MOBILITY/TRANSFERS Supine-sit: I Sit-stand: S Stand-sit: S GAIT Assistive Device: FWW Weight bearing: WBAT B Assist: CGA-SBA in a.m.; SBA in p.m. Distance: 40' in a.m.; 100' in p.m. Deviation: Cueing for increased stride length and stefanie THEREX: Patient completed a LE strengthening program, in a standing position, as per flow sheet. Patient tolerated a progression in ther ex, modifications made to reps are noted on flow sheet. TOILETING: Patient toileted with supervision for transfers ASSESSMENT: Patient tolerated session well with minimal c/o increased fatigue. She was able to tolerate a progression in gait distance with FWW support and SBA, as well as ther ex. She would benefit from continued gait training and strengthening for improved mobility. PLAN: Continue with PT's POC TREATMENT CODE/TIME: Session 1: 40 minutes; [id number], [id number] x2 Session 2: 20 minutes; [id number]
--- NOTE | 2019-04-22 10:36 | PTTR_ITS ---
Date of service: 04/22/19 Time of Service: 10:29 PT Notes Inpatient Physical Therapy Treatment Note [facility] Date: 04/22/19 PRECAUTIONS: Suicidal Ideation, Fall SUBJECTIVE: Payal reports that she is feeling better today, she feels that she is getting stronger. OBJECTIVE: PAIN: No c/o pain BED MOBILITY/TRANSFERS Supine-sit: I Sit-stand: S Stand-sit: S GAIT Assistive Device: FWW Weight bearing: WBAT B Assist: CGA-SBA in a.m.; SBA in p.m. Distance: 40' in a.m.; 100' in p.m. Deviation: Cueing for increased stride length and stefanie THEREX: Patient completed a LE strengthening program, in a standing position, as per flow sheet. Patient tolerated a progression in ther ex, modifications made to reps are noted on flow sheet. TOILETING: Patient toileted with supervision for transfers ASSESSMENT: Patient tolerated session well with minimal c/o increased fatigue. She was able to tolerate a progression in gait distance with FWW support and SBA, as well as ther ex. She would benefit from continued gait training and strengthening for improved mobility. PLAN: Continue with PT's POC TREATMENT CODE/TIME: Session 1: 40 minutes; [id number], [id number] x2 Session 2: 20 minutes; [id number]
[2019-04-22 11:15] LABS: Lyme Ab w Rflx to Lyme Confirm Negative
[2019-04-22 12:43] VITALS: BP 111/73; PULSE 63; RESP 16; TEMP 37.9; O2SAT 99
[2019-04-22] MEDS: Normal Saline Flush 10 ML SYR IVP (12:45)
[2019-04-22] MEDS: traMADol 50 MG TAB PO (12:45)
--- NOTE | 2019-04-22 14:54 | CMSP_ITS ---
Care Management Safety Plan Arti is appropriate in all interactions since arriving at [facility]. She has demonstrated appropriate coping and communication skills and is engaged during staff interactions. Arti continues to struggle with suicidal ideation and at this time is agreeable to voluntary inpatient psychiatric treatment. She was sitting up on her bed when CM met with her, she was appropriate in interaction and forthcoming with information. She reported wanting to transfer to [facility] or [facility] and not wanting to attend program. [facility] an appropriate program for Payal as well. Payal reported feeling that she needed adjustment to her medications and was feeling well supported and validated while at [facility] but had felt very alone and unsupported in the community prior to admission. She verbalized understanding of the MH process and medical clearance. She shared that she had not been taking her prescribed medications since admission to [facility], she identified times her anxiety has spiked including when she transferred out of ICU to MED/SURG; CM facilitated discussion around transfer process, unknowns in timing and disposition and supported transport to ensure Payal was well informed and could prepare for this transition. Payal advocated for being able to shower and shave as well as have her own de odorant. CM reviewed policy and safety planning; Pyaal advocated for BELINDA LeungO/ZAYDA to be permitted to shave her underarms for her; CM spoke with team who was in agreement. CM provided review of process as example of how team could best serve Payal when she continues to verbalize her needs. She was receptive to this discussion. Payal continues to be closely monitored as per MD, her CPK has not normalized and would need to lower to less than 800 for Payal to be medically cleared for transfer to psychiatric stabilization. Should Arti wants to leave [facility], she would need to be seen by [facility] Crisis Screener and re-evaluated prior to discharge. Huddle participants: Kenya PORTILLO, Kapil RTEVINOO, Nancie KEY, Supriya Clinical Coordinator, Cynthia PORTILLO Medical Nurse SAFETY PLAN: 1. Will remain on suicide precautions and in paper clothes or hospital gown. 2. Permitted to ambulate outside of room with [facility] staff escort at RN discretion. 3. May have paper cups, plates, finger foods as well as a metal spoon with which to eat meals. Utensil will be retrieved by staff at the end of the meal. 4. Follow [facility] Management of the Admitted Behavioral Health Patient policy. 5. Shower privileges (with CPSO in attendance). CPSO/AIR TECHNICIAN approved to provide shaving of armpits and legs (as patient has advocated for) at patient and RN discretion. 6. May have personal phone and plywood factory worker, insulated mug, hairbrush, toothbrush and toothpaste, deodorant. 7. Visitors permitted at nursing discretion. 8. Female care providers should be assigned when available. Patient is currently voluntarily at [facility] and seeking inpatient admission when a bed becomes available. [facility] Frontline Smooth Stucco Resurfacer will continue seeking placement. Please contact the Television Repairer Poultry And Fish Butcher ([phone]) and [facility] Smooth Stucco Resurfacer ([phone]) for any needed changes in the Safety Plan. Safety plan has been provided to interdepartmental care team.
[2019-04-22 15:15] VITALS: BP 109/69; PULSE 66; RESP 16; TEMP 37.3; O2SAT 99
[2019-04-22] MEDS: Mylanta Suspension 30 ML CUP PO (17:07)
--- NOTE | 2019-04-22 17:08 | W.PM.PROGNOT ---
Date of Service Date of service: 04/22/19 Time of Service: 17:08 Assessment and Plan (1) Rhabdomyolysis: Current visit: Yes Status: Acute CPK improving daily, down to 4787 today. Continue NS. Continue to follow CPK and AST/ALT which are also improving daily. Renal function remains stable. Continue to monitor. (2) Aspiration pneumonitis: Current visit: Yes Status: Acute Completes 5 days of antibiotics including ceftriaxone and flagyl today. Repeat chest x-ray tomorrow. (3) Suicide attempt by drug overdose: Current visit: Yes Status: Acute Remains at high risk for repeat suicide attempt. Continue CPSO. Continue to follow CPK. Mental health consult when she is medically cleared for referral to inpatient psychiatric hopspitalization. (4) Anxiety: Current visit: No Status: Acute Continue prn ativan. (5) Depression: Current visit: Yes Status: Chronic As above. (6) Leg weakness, bilateral: Current visit: Yes Status: Acute Likely due to rhabdomyolysis. She had a negative MRI spine. She has been seen by Neurology, Dr. Gutierrez feels this is related to rhabdo and expects continued improvement. If no improvement in the next month, she will need to be referred to the Neurology clinic for follow up. Continue PT/OT. (7) Hypokalemia: Current visit: Yes Status: Acute Resolved. Continue to follow. (8) DVT prophylaxis: Current visit: Yes Status: Acute Chemical DVT prophylaxis not indicated in this 33 year old ambulatory patient. Continue TEDs/scds. (9) Discharge planning issues: Current visit: Yes Status: Acute She is a FULL CODE. For voluntary psychiatric hospitalization once medically stable. Continues to require medical care for rhabdomyolysis. This case was discussed with Dr. Gutiérrez who is in agreement. Subjective Interval history since last seen: Payal reports ongoing anxiety today. She reports that mornings and evenings are the hardest time for her. She is tearful. She does not directly state that she is suicidal, however, she states she would not feel safe leaving the hospital to go home because she does not know what might happen. She is agreeable to admission to an inpatient psychiatric facility, she states she knows she needs help. She misses her children. She verbalizes that she thinks her boyfriend feels betrayed by her actions and she feels terrible about that. She reports that she has struggled with depression and anxiety all of her life. She feels nauseated today, she has had loose stools, not watery, she believes it is related to the antibiotics. She continues to have some lower extremity weakness bilaterally and right lateral ankle pain. She was seen by neurology, Dr. Gutierrez states it is likely related to her Rhabdo. She denies dizziness, chest pain/pressure, palpitations, shortness of breath, coughing, wheezing. Exam Narrative Exam Narrative: General: Very pleasant female, sitting up in bed, tearful throughout conversation. Answers questions appropriately. HEENT: Normocephalic, atraumatic, pupils equal and round, EOMI, mucous membranes moist. Heart: Heart has regular rate and rhythm, nontachycardic, no murmur. Lungs: Respirations even and unlabored, lung sounds clear bilaterally. GI: normoacitve bowel sounds, abdomen is soft, nontender, nondistended Extremities: No clubbing, cyanosis or edema. Slightly more difficulty raising the RLE than the LLE. Pedal pulses palpable bilaterally. Objective Objective Clinical Data: Abnormal lab results 04/21/19 04/22/19 Range/Units 06:35 06:35 Chloride 109 H (98-107) mmol/L Calcium 8.4 L (8.5-10.1) mg/dL AST 225 H (15-37) U/L ALT 251 H (12-78) U/L Alkaline Phosphatase 42 L (46-116) U/L Creatine Kinase 02564 H 4787 H (30-135) U/L Total Protein 5.7 L (6.4-8.2) g/dL Albumin 2.8 L (3.4-5.0) g/dL Vital Signs Temperature 37.3 C 04/22/19 15:15 Temperature Source Tympanic 04/22/19 15:15 Pulse 66 04/22/19 15:15 Pulse Rhythm Regular 04/22/19 08:12 Pulse 76 04/20/19 16:28 Respiratory Rate 16 04/22/19 15:15 Respiratory Effort Non-Labored 04/22/19 08:12 Respiratory Depth Normal 04/22/19 08:12 Respiratory Pattern Normal 04/22/19 08:12 Blood Pressure 109/69 04/22/19 15:15 Blood Pressure Mean 81 04/20/19 16:28 Blood Pressure Position Supine 04/20/19 00:00 Pulse Oximetry 99 04/22/19 15:15 Respiratory End-tidal CO2 10 04/18/19 09:01 Oxygen Delivery Method Room Air 04/22/19 15:15 Oxygen Flow Rate 0 04/22/19 15:15 End Tidal Co2 32 04/17/19 16:17 Pain Level 7 04/22/19 16:01 Comment 04/20/19 17:57 Intake & Output 04/21/19 04/22/19 04/22/19 23:59 11:59 23:59 Intake Total 4090 / 6490 3280.000 / 3380.000 100 / 3380.000 Output Total 650 / 2700 1750 / 2350 600 / 2350 Balance 3440 / 3790 1530.000 / 1030.000 -500 / 1030.000 Weight 82.1 kg Intake: IV 3250 / 4450 2680.000 / 2780.000 100 / 2780.000 Oral 840 / 2040 600 / 600 Output: Urine 650 / 2700 1750 / 2350 600 / 2350 Other: Urine Color Yellow Yellow Yellow Urine Appearance Clear Clear Clear Urine Odor Normal Comment unable to get amount Stool Occult Blood Negative Negative Stool Size Moderate Small Small Stool Characteristics Liquid Soft Soft Brown Green Voiding Methods Bedside Commode Bedside Commode Bedside Commode Laboratory Results WBC 6.24 k/cumm (4.4-10.8) 04/21/19 06:35 RBC 4.71 m/cumm (4.00-5.20) 04/21/19 06:35 Hgb 13.8 g/dL (12.0-15.5) 04/21/19 06:35 Hct 41.3 % (36.0-46.0) 04/21/19 06:35 MCV 87.7 fL (80-95) 04/21/19 06:35 MCH 29.3 pg (27.0-33.0) 04/21/19 06:35 MCHC 33.4 g/dL (32.0-36.0) 04/21/19 06:35 RDW 14.0 % (11.7-14.6) 04/21/19 06:35 Plt Count 232 x1000/uL (130-400) 04/21/19 06:35 MPV 10.2 fL (8.0-11.0) 04/21/19 06:35 Immature Gran % 0.2 04/21/19 06:35 Neutrophils % 51.6 04/21/19 06:35 Lymphocytes % 38.3 04/21/19 06:35 Monocytes % 7.5 04/21/19 06:35 Eosinophils % 2.1 04/21/19 06:35 Basophils % 0.3 04/21/19 06:35 Absolute Neutrophils 3.22 k/cumm (1.2-6.7) 04/21/19 06:35 Absolute Lymphocytes 2.39 k/cumm (1.2-3.4) 04/21/19 06:35 Absolute Monocytes 0.47 k/cumm (0.11-0.7) 04/21/19 06:35 Absolute Eosinophils 0.13 k/cumm (0.0-0.7) 04/21/19 06:35 Absolute Basophils 0.02 k/cumm (0.0-0.2) 04/21/19 06:35 Differential Comment Diff reviewed 04/17/19 16:20 RBC Morphology Normal 04/17/19 16:20 Sample Site Left brachial 04/20/19 07:41 pCO2 21 mmHg (34-47) L 04/20/19 07:41 pO2 109 mmHg (83-108) H 04/20/19 07:41 O2 Saturation 99 % (94-98) H 04/20/19 07:41 ABG pH 7.69 (7.35-7.45) H* 04/20/19 07:41 ABG HCO3 25 mmol/L (22-28) 04/20/19 07:41 ABG Total CO2 21 mmol/L (22-29) L 04/20/19 07:41 ABG Base Excess 4.6 mmol/L (-3-3) H 04/20/19 07:41 VBG pH 7.49 (7.32-7.43) H 04/21/19 06:35 VBG pCO2 27 mm/Hg (34-47) L 04/21/19 06:35 VBG pO2 156 mm/Hg (28-44) H 04/21/19 06:35 VBG HCO3 20 mmol/L (22-28) L 04/21/19 06:35 VBG Total CO2 18 mmol/L (22-29) L 04/21/19 06:35 VBG O2 Saturation 99 % (70-80) H 04/21/19 06:35 VBG Base Excess -3.0 mmol/L (-3-3) 04/21/19 06:35 Oxygen Liter Flow R/a L 04/20/19 07:41 Sodium 140 mmol/L (136-145) 04/22/19 06:35 Potassium 4.1 mmol/L (3.5-5.1) 04/22/19 06:35 Chloride 109 mmol/L (98-107) H 04/22/19 06:35 Carbon Dioxide 23.3 mmol/L (21.0-32.0) 04/22/19 06:35 Anion Gap 7.7 mmol/L (3-11) 04/22/19 06:35 BUN 7 mg/dL (7-18) 04/22/19 06:35 Creatinine 0.71 mg/dL (0.55-1.02) 04/22/19 06:35 Estimated GFR/1.73 m2 >= 60.00 (mL/min/1.73m2) 04/22/19 06:35 Glucose 96 mg/dL (70-100) 04/22/19 06:35 Calcium 8.4 mg/dL (8.5-10.1) L 04/22/19 06:35 Magnesium 1.9 mg/dL (1.8-2.4) 04/21/19 06:35 Total Bilirubin 0.5 mg/dL (0.2-1.0) 04/22/19 06:35 Conjugated Bilirubin 0.12 mg/dL (0.00-0.20) 04/22/19 06:35 AST 225 U/L (15-37) H 04/22/19 06:35 ALT 251 U/L (12-78) H 04/22/19 06:35 Alkaline Phosphatase 42 U/L (46-116) L 04/22/19 06:35 Creatine Kinase 4787 U/L (26-192) H 04/22/19 06:35 Total Protein 5.7 g/dL (6.4-8.2) L 04/22/19 06:35 Albumin 2.8 g/dL (3.4-5.0) L 04/22/19 06:35 TSH 3.13 uIU/mL (0.358-3.74) 04/17/19 16:20 Serum HCG, Qual Negative 04/17/19 16:20 Urine Color Yellow (Yellow) 04/20/19 10:20 Urine Clarity Clear 04/20/19 10:20 Urine pH 8.5 (5-8) H 04/20/19 10:20 Ur Specific [place] 1.015 (1.005-1.025) 04/20/19 10:20 Urine Protein Negative mg/dL (Negative) 04/20/19 10:20 Urine Ketones Negative mg/dL (Negative) 04/20/19 10:20 Urine Blood Trace-intact (Negative) H 04/20/19 10:20 Urine Nitrite Negative (Negative) 04/20/19 10:20 Urine Bilirubin Negative (Negative) 04/20/19 10:20 Urine Urobilinogen 0.2 EU/dL (Up TO 0.2) 04/20/19 10:20 Ur Leukocyte Esterase Negative (Negative) 04/20/19 10:20 Urine RBC 3-5 (0-2) H 04/20/19 10:20 Urine WBC 0-2 HPF (0-5) 04/20/19 10:20 Ur Epithelial Cells Negative HPF (Negative) 04/20/19 10:20 Urine Crystals Negative HPF (Negative) 04/20/19 10:20 Urine Bacteria Rare HPF (Negative) 04/20/19 10:20 Urine Casts Negative LPF (Negative) 04/20/19 10:20 Urine Mucus Trace (Negative) 04/20/19 10:20 Urine Other Rare transitional (Negative) 04/20/19 10:20 Ur Culture Indicated? No 04/20/19 10:20 Urine Myoglobin >5000 mcg/L (<=21) H 04/17/19 17:00 Urine Glucose Negative mg/dL (Negative) 04/20/19 10:20 Salicylates 4.1 mg/dL (2.8-20.0) 04/17/19 16:20 Urine Opiates Screen Positive (Negative) 04/17/19 17:03 Urine Methadone Screen Negative (Negative) 04/17/19 17:03 Acetaminophen < 2 ug/mL (10-30) L 04/17/19 16:20 Ur Barbiturates Screen Negative (Negative) 04/17/19 17:03 Ur Tricyclics Screen Negative (Negative) 04/17/19 17:03 Ur Amphetamines Screen Negative (Negative) 04/17/19 17:03 U Benzodiazepines Scrn Negative (Negative) 04/17/19 17:03 Urine Cocaine Screen Negative (Negative) 04/17/19 17:03 Ur THC Screen Positive (Negative) 04/17/19 17:03 Ethyl Alcohol < 3.0 mg/dL (<3) 04/17/19 16:20 Lyme Disease Antibody Negative 04/19/19 16:18
[2019-04-22] MEDS: cefTRIAXone 1 GM/50 ML BAG IVPB (17:31)
[2019-04-22 20:30] VITALS: BP 115/78; PULSE 60; RESP 16; TEMP 37.1; O2SAT 99
[2019-04-23 01:26] LABS: Anaplasma phagocytophilum Negative (Negative); B. miyamotoi PCR Negative (Negative); Babesia divergens/MO-1 Negative (Negative); Babesia duncani Negative (Negative); Babesia microti Negative (Negative); Ehrlichia chaffeensis Negative (Negative); Ehrlichia ewingii/canis Negative (Negative); Ehrlichia muris eauclairensis Negative (Negative)
[2019-04-23] MEDS: Acetaminophen 325 MG TAB 650 MG PO ×2 (03:51→12:04)
[2019-04-23 03:55] VITALS: BP 114/75; PULSE 65; RESP 18; TEMP 37; O2SAT 100
[2019-04-23] MEDS: Normal Saline 1,000 ML 200 ML IV ×4 (04:40→19:37)
[2019-04-23] MEDS: LORazepam 0.5 MG TAB PO (05:20)
[2019-04-23 07:11] LABS: HCT 39.2 % (36.0-46.0); Mean Corp. HGB Concentration 33.2 g/dL (32.0-36.0); Mean Corpuscular Hemoglobin 29.4 pg (27.0-33.0); Mean Corpuscular Volume 88.7 fL (80-95); Mean Platelet Volume 10.2 fL (8.0-11.0); Platelet Count 207 x1000/uL (130-400); RBC 4.42 m/cumm (4.00-5.20)
[2019-04-23] MEDS: Pantoprazole 40 MG TABCR PO (07:36)
[2019-04-23] MEDS: Mylanta Suspension 30 ML CUP PO (07:36)
[2019-04-23 07:39] LABS: ALT 220 U/L (12-78); AST 165 U/L (15-37); Alkaline Phosphatase 42 U/L (46-116); BUN 7 mg/dL (7-18); Bilirubin, Total 0.6 mg/dL (0.2-1.0); CREATININE 0.64 mg/dL (0.55-1.02); Calcium 8.4 mg/dL (8.5-10.1); Chloride 109 mmol/L (98-107); Glucose 100 mg/dL (70-100); Potassium 3.4 mmol/L (3.5-5.1); Sodium 142 mmol/L (136-145); Total Protein 5.8 g/dL (6.4-8.2)
[2019-04-23 07:46] LABS: Creatine Kinase 2792 U/L (26-192)
[2019-04-23] MEDS: traMADol 50 MG TAB PO ×3 (07:51→20:34)
[2019-04-23 07:57] VITALS: BP 118/83; PULSE 65; RESP 18; TEMP 36.9; O2SAT 100
--- NOTE | 2019-04-23 08:23 | DI.RAD_ITS ---
SYMPTOM/DIAGNOSIS: COUGH PA AND LATERAL CHEST: The heart is normal in size. The lungs are clear. The mediastinal structures and pleura appear intact. CONCLUSION: Normal chest. No evidence of acute cardiopulmonary disease.
--- NOTE | 2019-04-23 09:30 | PDOC.CMPRO ---
- If Service Date Differs Date of service: 04/23/19 Time of Service: 09:30 Care Management Progress Note S/O:Payal was sitting up in bed, smiling and chatting with the CPSO when CM came to visit. When asked, she stated that she is feeling better - really better. She shared that she is feeling more hopeful. She noted that her CPK was much better and that she is getting stronger every day with ambulation. A: Payal is a 33 year old woman admitted to [facility] on 04/17/19 after and intentional opiate overdose P: Payal remains acute level of care following an intentional opiate overdose. When medically cleared, mental health crisis will be contacted for re-evaluation and psychiatric stabilization, if appropriate. Payal has agreed to voluntarily go to an inpatient psychiatric facility when discharged. CM will continue to provide support to patient, family and discharge planning process.
--- NOTE | 2019-04-23 09:37 | CMPROGNOTE_ITS ---
- If Service Date Differs Date of service: 04/23/19 Time of Service: 09:30 Care Management Progress Note S/O:Payal was sitting up in bed, smiling and chatting with the CPSO when CM came to visit. When asked, she stated that she is feeling better - really better. She shared that she is feeling more hopeful. She noted that her CPK was much better and that she is getting stronger every day with ambulation. A: Payal is a 33 year old woman admitted to [facility] on 04/17/19 after and intent ional opiate overdose P: Payal remains acute level of care following an intentional opiate overdose. When medically cleared, mental health crisis will be contacted for re- evaluation and psychiatric stabilization, if appropriate. Payal has agreed to voluntarily go to an inpatient psychiatric facility when discharged. CM will continue to provide support to patient, family and discharge planning process.
[2019-04-23] MEDS: Potassium Chloride 20 MEQ TABCR 40 MEQ PO (09:39)
--- NOTE | 2019-04-23 10:25 | PT.INTREAT ---
Date of service: 04/23/19 Time of Service: 10:25 PT Notes Inpatient Physical Therapy Treatment Note [facility] Date: 04/23/19 PRECAUTIONS: Suicidal Ideation, Fall SUBJECTIVE: Payal reports that she had leg and low-back pain overnight. She reports that she is feeling better this afternoon and feels that she is getting stronger. OBJECTIVE: PAIN: No c/o pain BED MOBILITY/TRANSFERS Supine-sit: I Sit-supine: I Sit-stand: S Stand-sit: S GAIT Assistive Device: FWW Weight bearing: WBAT B Assist: SBA in a.m.; SBA in p.m. Distance: 150' in a.m.; 150 in p.m. THEREX: Patient completed a LE strengthening program, in a standing position, as per flow sheet. Exercises included functional [id number], timed marching in place, heel raises. NEURO RE-ED: Patient completed a static and dynamic standing balance and proprioceptive re-training program, as per flow sheet. Patient required U UE support with SLS exercise and was able to tolerate the addition of tandem walking with FWW support and CGA. ASSESSMENT: Patient tolerated session well. She was able to tolerate a progression in gait distance with FWW support and SBA, as well as ther ex and balance re-training. She would benefit from continued gait training and strengthening and balance re-training for improved mobility and ability to perform daily functional tasks at a more independent level. PLAN: Continue with PT's POC TREATMENT CODE/TIME: Session 1: 35 minutes; [id number], [id number] Session 2: 40 minutes; 66281, 84120 x2
--- NOTE | 2019-04-23 10:32 | PTTR_ITS ---
Date of service: 04/23/19 Time of Service: 10:25 PT Notes Inpatient Physical Therapy Treatment Note [facility] Date: 04/23/19 PRECAUTIONS: Suicidal Ideation, Fall SUBJECTIVE: Payal reports that she had leg and low-back pain overnight. She reports that she is feeling better this afternoon and feels that she is getting stronger. OBJECTIVE: PAIN: No c/o pain BED MOBILITY/TRANSFERS Supine-sit: I Sit-supine: I Sit-stand: S Stand-sit: S GAIT Assistive Device: FWW Weight bearing: WBAT B Assist: SBA in a.m.; SBA in p.m. Distance: 150' in a.m.; 150 in p.m. THEREX: Patient completed a LE strengthening program, in a standing position, as per flow sheet. Exercises included functional [id number], timed marching in place, heel raises. NEURO RE-ED: Patient completed a static and dynamic standing balance and proprioceptive re-training program, as per flow sheet. Patient required U UE support with SLS exercise and was able to tolerate the addition of tandem walking with FWW support and CGA. ASSESSMENT: Patient tolerated session well. She was able to tolerate a progression in gait distance with FWW support and SBA, as well as ther ex and balance re-training. She would benefit from continued gait training and strengthening and balance re-training for improved mobility and ability to perform daily functional tasks at a more independent level. PLAN: Continue with PT's POC TREATMENT CODE/TIME: Session 1: 35 minutes; [id number], [id number] Session 2: 40 minutes; 96572, 39746 x2
[2019-04-23] MEDS: Ondansetron O.D.T. 4 MG TABEF PO (12:04)
[2019-04-23] MEDS: Lactobacillus Acidophilus CAP 1 CAP PO ×2 (12:04→19:37)
[2019-04-23 12:05] VITALS: BP 120/83; PULSE 63; RESP 18; TEMP 36.7; O2SAT 99
--- NOTE | 2019-04-23 13:51 | PDOC.CMSAFE ---
- If Service Date Differs Date of service: 04/23/19 Time of Service: 13:51 Care Management Safety Plan Arti is appropriate in all interactions since arriving at [facility]. She has demonstrated appropriate coping and communication skills and is engaged during staff interactions. Should Arti wants to leave [facility], she would need to be seen by [facility] Crisis Screener and re-evaluated prior to discharge. Huddle participants: Liset RN, Xochitl CPSO, Brittney KEY, Supriya Clinical Coordinator, Nursing quality assurance supervisor unavailable. SAFETY PLAN: 1. Will remain on suicide precautions and in paper clothes or hospital gown. She may wear sneakers from home (without laces) to participate in physical therapy. 2. Permitted to ambulate outside of room with [facility] staff escort at RN discretion. 3. May have paper cups, plates, finger foods as well as a metal spoon with which to eat meals. Utensil will be retrieved by staff at the end of the meal. 4. Follow [facility] Management of the Admitted Behavioral Health Patient policy. 5. Shower privileges (with CPSO in attendance). CPSO/RESIN FILTERER approved to provide shaving of armpits and legs (as patient has advocated for) at patient and RN discretion. 6. May have personal phone and associate financial analyst, insulated mug, hairbrush, toothbrush and toothpaste, deodorant. 7. Visitors permitted at nursing discretion. 8. Female care providers should be assigned when available. Patient is currently voluntarily at [facility] and seeking inpatient admission when a bed becomes available. [facility] Frontline Management Architect will continue seeking placement. Please contact the Capsule Maker Receiving Lead ([phone]) and [facility] Management Architect ([phone]) for any needed changes in the Safety Plan. Safety plan has been provided to interdepartmental care team.
--- NOTE | 2019-04-23 13:53 | CMSP_ITS ---
- If Service Date Differs Date of service: 04/23/19 Time of Service: 13:51 Care Management Safety Plan Arti is appropriate in all interactions since arriving at [facility]. She has demonstrated appropriate coping and communication skills and is engaged during staff interactions. Should Arti wants to leave [facility], she would need to be seen by [facility] Crisis Screener and re-evaluated prior to discharge. Huddle participants: Liset RN, Xochitl CPSO, Brittney KEY, Supriya Clinical Coordinator, Nursing fireworks assembly supervisor unavailable. SAFETY PLAN: 1. Will remain on suicide precautions and in paper clothes or hospital gown. She may wear sneakers from home (without laces) to participate in physical therapy. 2. Permitted to ambulate outside of room with [facility] staff escort at RN discretion. 3. May have paper cups, plates, finger foods as well as a metal spoon with which to eat meals. Utensil will be retrieved by staff at the end of the meal. 4. Follow [facility] Management of the Admitted Behavioral Health Patient policy. 5. Shower privileges (with CPSO in attendance). CPSO/MILK DRYING MACHINE OPERATOR approved to provide shaving of armpits and legs (as patient has advocated for) at patient and RN discretion. 6. May have personal phone and shell machine operator, insulated mug, hairbrush, toothbrush and toothpaste, deodorant. 7. Visitors permitted at nursing discretion. 8. Female care providers should be assigned when available. Patient is currently voluntarily at [facility] and seeking inpatient admission when a bed becomes available. [facility] Frontline Chief Wellness Officer will continue seeking placement. Please contact the Formula Mixer Steam Plant Control Room Operator ([phone]) and [facility] Chief Wellness Officer ([phone]) for any needed changes in the Safety Plan. Safety plan has been provided to interdepartmental care team.
--- NOTE | 2019-04-23 15:15 | W.PM.PROGNOT ---
Date of Service Date of service: 04/23/19 Time of Service: 15:15 Assessment and Plan (1) Rhabdomyolysis: Current visit: Yes Status: Acute CPK improving daily, down to 2792 today from 4787 yesterday. Continue NS. Continue to follow CPK and AST/ALT which are also improving daily. Renal function remains stable. Continue to monitor. (2) Aspiration pneumonitis: Current visit: Yes Status: Acute Completes 5 days of antibiotics including ceftriaxone and flagyl yesterday. Repeat chest x-ray today shows no acute process. Repeat CBC shows no leukocytosis. Symptoms have resolved. GI discomfort possibly related to antibiotics. Schedule probiotics. PRN mylanta and zofran available. (3) Suicide attempt by drug overdose: Current visit: Yes Status: Acute Remains at high risk for repeat suicide attempt. Continue CPSO. Continue to follow CPK. Mental health consult when she is medically cleared for referral to inpatient psychiatric hospitalization for stabilization. (4) Anxiety: Current visit: No Status: Acute Continue prn ativan. (5) Depression: Current visit: Yes Status: Chronic As above. (6) Leg weakness, bilateral: Current visit: Yes Status: Acute Likely due to rhabdomyolysis. She had a negative MRI spine. She has been seen by Neurology, Dr. Gutierrez feels this is related to rhabdo and expects continued improvement. If no improvement in the next month, she will need to be referred to the Neurology clinic for follow up. Continue PT/OT. (7) Hypokalemia: Current visit: Yes Status: Acute Supplement and monitor. (8) DVT prophylaxis: Current visit: Yes Status: Acute Chemical DVT prophylaxis not indicated in this 33 year old ambulatory patient. Continue TEDs/scds. (9) Discharge planning issues: Current visit: Yes Status: Acute She is a FULL CODE. For voluntary psychiatric hospitalization for stabilization once medically stable. Continues to require medical care for rhabdomyolysis. This case was discussed with Dr. Gutiérrez who is in agreement. Subjective Interval history since last seen: Payal's mother is present today. She reports that she is feeling ok today. She continues to have some anxiety. She is not tearful today. She saw her daughter last evening, she is pleased about that, she misses her children. She continues to have some abdominal discomfort, with mild nausea and loose stools. She is eating and drinking. She remains agreeable to hospitalization at a psychiatric facility for stabilization. She completed a 5 day antibiotic course for aspiration pneumonitis yesterday, she denies coughing, shortness of breath or wheezing. The pain in her right lateral ankle has improved, her ankle does not feel unstable today. She points to an area on her right lateral calf, care home between her knee and ankle where she has new point tenderness. She states she feels that she is getting stronger. She continues to work with physical therapy. She is asking if her physical therapist friend from work can walk with her, she was advised that her friend could join her while she has her physical therapy session with the [facility] PT. Exam Narrative Exam Narrative: General: Very pleasant female, sitting up in bed with her mother and CPSO by her sides. She answers questions appropriately. HEENT: Normocephalic, atraumatic, pupils equal and round, EOMI, mucous membranes moist. Heart: Heart has regular rate and rhythm, nontachycardic, no murmur. Lungs: Respirations even and unlabored, lung sounds clear bilaterally. GI: normoacitve bowel sounds, abdomen is soft, nontender, nondistended Extremities: No clubbing, cyanosis or edema. Slightly more difficulty raising the RLE than the LLE. Mild tenderness noted on palpation of her right lateral calf, half way between her knee and ankle. Pedal pulses palpable bilaterally. Objective Objective Clinical Data: Abnormal lab results 04/23/19 Range/Units 06:40 Potassium 3.4 L (3.5-5.1) mmol/L Chloride 109 H (98-107) mmol/L Calcium 8.4 L (8.5-10.1) mg/dL AST 165 H (15-37) U/L ALT 220 H (12-78) U/L Alkaline Phosphatase 42 L (46-116) U/L Creatine Kinase 2792 H (26-192) U/L Total Protein 5.8 L (6.4-8.2) g/dL Albumin 3.0 L (3.4-5.0) g/dL Vital Signs Temperature 36.7 C 04/23/19 12:05 Temperature Source Temporal Artery Scan 04/23/19 12:05 Pulse 63 04/23/19 12:05 Pulse Rhythm Regular 04/23/19 07:57 Pulse 76 04/20/19 16:28 Respiratory Rate 18 06/19/19 12:05 Respiratory Effort 04/23/19 07:57 Respiratory Depth Normal 04/23/19 07:57 Respiratory Pattern Normal 04/23/19 07:57 Blood Pressure 120/83 04/23/19 12:05 Blood Pressure Mean 81 04/20/19 16:28 Blood Pressure Position Supine 04/20/19 00:00 Pulse Oximetry 99 04/23/19 12:05 Respiratory End-tidal CO2 10 04/18/19 09:01 Oxygen Delivery Method Room Air 04/23/19 12:05 Oxygen Flow Rate 0 04/23/19 12:05 End Tidal Co2 32 04/17/19 16:17 Pain Level 4 04/23/19 12:05 Comment 04/20/19 17:57 Intake & Output 04/22/19 04/23/19 04/23/19 23:59 11:59 23:59 Intake Total 2040 / 5320.000 3590 / 4493.333 903.333 / 4493.333 Output Total 1950 / 3700 2475 / 3075 600 / 3075 Balance 90 / 1779.096 9098 / 1418.333 303.333 / 1418.333 Weight 80.7 kg Intake: IV 1250 / 3930.000 2000 / 2903.333 903.333 / 2903.333 Oral 790 / 1390 1590 / 1590 Output: Urine 1949 / 3700 2475 / 3075 600 / 3075 Other: Urine Color Yellow Yellow Yellow Urine Appearance Clear Clear Clear Comment unable to get amount Stool Size Small Small Small Stool Characteristics Soft Soft Soft Voiding Methods Bedside Commode Toilet Laboratory Results WBC 6.80 k/cumm (4.4-10.8) 04/23/19 06:40 RBC 4.42 m/cumm (4.00-5.20) 04/23/19 06:40 Hgb 13.0 g/dL (12.0-15.5) 04/23/19 06:40 Hct 39.2 % (36.0-46.0) 04/23/19 06:40 MCV 88.7 fL (80-95) 04/23/19 06:40 MCH 29.4 pg (27.0-33.0) 04/23/19 06:40 MCHC 33.2 g/dL (32.0-36.0) 04/23/19 06:40 RDW 14.0 % (11.7-14.6) 04/23/19 06:40 Plt Count 207 x1000/uL (130-400) 04/23/19 06:40 MPV 10.2 fL (8.0-11.0) 04/23/19 06:40 Immature Gran % 0.2 04/21/19 06:35 Neutrophils % 51.6 04/21/19 06:35 Lymphocytes % 38.3 04/21/19 06:35 Monocytes % 7.5 04/21/19 06:35 Eosinophils % 2.1 04/21/19 06:35 Basophils % 0.3 04/21/19 06:35 Absolute Neutrophils 3.22 k/cumm (1.2-6.7) 04/21/19 06:35 Absolute Lymphocytes 2.39 k/cumm (1.2-3.4) 04/21/19 06:35 Absolute Monocytes 0.47 k/cumm (0.11-0.7) 04/21/19 06:35 Absolute Eosinophils 0.13 k/cumm (0.0-0.7) 04/21/19 06:35 Absolute Basophils 0.02 k/cumm (0.0-0.2) 04/21/19 06:35 Differential Comment Diff reviewed 04/17/19 16:20 RBC Morphology Normal 04/17/19 16:20 Sample Site Left brachial 04/20/19 07:41 pCO2 21 mmHg (34-47) L 04/20/19 07:41 pO2 109 mmHg (83-108) H 04/20/19 07:41 O2 Saturation 99 % (94-98) H 04/20/19 07:41 ABG pH 7.69 (7.35-7.45) H* 04/20/19 07:41 ABG HCO3 25 mmol/L (22-28) 04/20/19 07:41 ABG Total CO2 21 mmol/L (22-29) L 04/20/19 07:41 ABG Base Excess 4.6 mmol/L (-3-3) H 04/20/19 07:41 VBG pH 7.49 (7.32-7.43) H 04/21/19 06:35 VBG pCO2 27 mm/Hg (34-47) L 04/21/19 06:35 VBG pO2 156 mm/Hg (28-44) H 04/21/19 06:35 VBG HCO3 20 mmol/L (22-28) L 04/21/19 06:35 VBG Total CO2 18 mmol/L (22-29) L 04/21/19 06:35 VBG O2 Saturation 99 % (70-80) H 04/21/19 06:35 VBG Base Excess -3.0 mmol/L (-3-3) 04/21/19 06:35 Oxygen Liter Flow R/a L 04/20/19 07:41 Sodium 142 mmol/L (136-145) 04/23/19 06:40 Potassium 3.4 mmol/L (3.5-5.1) L 04/23/19 06:40 Chloride 109 mmol/L (98-107) H 04/23/19 06:40 Carbon Dioxide 24.0 mmol/L (21.0-32.0) 04/23/19 06:40 Anion Gap 9.0 mmol/L (3-11) 04/23/19 06:40 BUN 7 mg/dL (7-18) 04/23/19 06:40 Creatinine 0.64 mg/dL (0.55-1.02) 04/23/19 06:40 Estimated GFR/1.73 m2 >= 60.00 (mL/min/1.73m2) 04/23/19 06:40 Glucose 100 mg/dL (70-100) 04/23/19 06:40 Calcium 8.4 mg/dL (8.5-10.1) L 04/23/19 06:40 Magnesium 1.9 mg/dL (1.8-2.4) 04/21/19 06:35 Total Bilirubin 0.6 mg/dL (0.2-1.0) 04/23/19 06:40 Conjugated Bilirubin 0.12 mg/dL (0.00-0.20) 04/22/19 06:35 AST 165 U/L (15-37) H 04/23/19 06:40 ALT 220 U/L (12-78) H 04/23/19 06:40 Alkaline Phosphatase 42 U/L (46-116) L 04/23/19 06:40 Creatine Kinase 2792 U/L (26-192) H 04/23/19 06:40 Total Protein 5.8 g/dL (6.4-8.2) L 04/23/19 06:40 Albumin 3.0 g/dL (3.4-5.0) L 04/23/19 06:40 TSH 3.13 uIU/mL (0.358-3.74) 04/17/19 16:20 Serum HCG, Qual Negative 04/17/19 16:20 Urine Color Yellow (Yellow) 04/20/19 10:20 Urine Clarity Clear 04/20/19 10:20 Urine pH 8.5 (5-8) H 04/20/19 10:20 Ur Specific [place] 1.015 (1.005-1.025) 04/20/19 10:20 Urine Protein Negative mg/dL (Negative) 04/20/19 10:20 Urine Ketones Negative mg/dL (Negative) 04/20/19 10:20 Urine Blood Trace-intact (Negative) H 04/20/19 10:20 Urine Nitrite Negative (Negative) 04/20/19 10:20 Urine Bilirubin Negative (Negative) 04/20/19 10:20 Urine Urobilinogen 0.2 EU/dL (Up TO 0.2) 04/20/19 10:20 Ur Leukocyte Esterase Negative (Negative) 04/20/19 10:20 Urine RBC 3-5 (0-2) H 04/20/19 10:20 Urine WBC 0-2 HPF (0-5) 04/20/19 10:20 Ur Epithelial Cells Negative HPF (Negative) 04/20/19 10:20 Urine Crystals Negative HPF (Negative) 04/20/19 10:20 Urine Bacteria Rare HPF (Negative) 04/20/19 10:20 Urine Casts Negative LPF (Negative) 04/20/19 10:20 Urine Mucus Trace (Negative) 04/20/19 10:20 Urine Other Rare transitional (Negative) 04/20/19 10:20 Ur Culture Indicated? No 04/20/19 10:20 Urine Myoglobin >5000 mcg/L (<=21) H 04/17/19 17:00 Urine Glucose Negative mg/dL (Negative) 04/20/19 10:20 Salicylates 4.1 mg/dL (2.8-20.0) 04/17/19 16:20 Urine Opiates Screen Positive (Negative) 04/17/19 17:03 Urine Methadone Screen Negative (Negative) 04/17/19 17:03 Acetaminophen < 2 ug/mL (10-30) L 04/17/19 16:20 Ur Barbiturates Screen Negative (Negative) 04/17/19 17:03 Ur Tricyclics Screen Negative (Negative) 04/17/19 17:03 Ur Amphetamines Screen Negative (Negative) 04/17/19 17:03 U Benzodiazepines Scrn Negative (Negative) 04/17/19 17:03 Urine Cocaine Screen Negative (Negative) 04/17/19 17:03 Ur THC Screen Positive (Negative) 04/17/19 17:03 Ethyl Alcohol < 3.0 mg/dL (<3) 04/17/19 16:20 A.phagocytophil DNA PCR Negative (Negative) 04/19/19 16:18 B. divergens/MO-1 PCR Negative (Negative) 04/19/19 16:18 Babesia duncani (PCR) Negative (Negative) 04/19/19 16:18 Babesia microti DNA PCR Negative (Negative) 04/19/19 16:18 Borrelia (PCR) Negative (Negative) 04/19/19 16:18 Lyme Disease Antibody Negative 04/19/19 16:18 E.chaffeensis DNA (PCR) Negative (Negative) 04/19/19 16:18 E.ewingii/canis DNA PCR Negative (Negative) 04/19/19 16:18 E. muris-like DNA (PCR) Negative (Negative) 04/19/19 16:18
[2019-04-23 16:16] VITALS: BP 109/72; PULSE 73; RESP 16; TEMP 36.9; O2SAT 100
[2019-04-23 21:12] VITALS: BP 118/72; PULSE 82; RESP 17; TEMP 37.3; O2SAT 100
[2019-04-24] MEDS: Acetaminophen 325 MG TAB 650 MG PO ×2 (00:19→08:21)
[2019-04-24] MEDS: Normal Saline 1,000 ML 200 ML IV ×4 (00:20→21:13)
[2019-04-24 00:44] VITALS: BP 107/71; PULSE 75; RESP 18; TEMP 36.7; O2SAT 97
[2019-04-24] MEDS: LORazepam 0.5 MG TAB PO ×2 (01:12→09:34)
[2019-04-24] MEDS: Ondansetron O.D.T. 4 MG TABEF PO ×2 (04:11→13:47)
[2019-04-24 04:20] VITALS: BP 124/83; PULSE 62; RESP 16; TEMP 36.7; O2SAT 99
[2019-04-24] MEDS: traMADol 50 MG TAB PO ×3 (04:29→21:47)
[2019-04-24 07:49] LABS: ALT 212 U/L (12-78); AST 136 U/L (15-37); Albumin 3.3 g/dL (3.4-5.0); Alkaline Phosphatase 49 U/L (46-116); Anion Gap 8.6 mmol/L (3-11); BUN 8 mg/dL (7-18); Bilirubin, Total 0.4 mg/dL (0.2-1.0); CO2 25.4 mmol/L (21.0-32.0); CREATININE 0.65 mg/dL (0.55-1.02); Calcium 8.7 mg/dL (8.5-10.1); Chloride 110 mmol/L (98-107); Glucose 96 mg/dL (70-100); Sodium 144 mmol/L (136-145); Total Protein 6.2 g/dL (6.4-8.2)
[2019-04-24 07:51] LABS: Creatine Kinase 1765 U/L (26-192)
[2019-04-24 08:15] VITALS: BP 130/84; PULSE 67; RESP 18; TEMP 36.7
[2019-04-24] MEDS: Pantoprazole 40 MG TABCR PO (08:21)
[2019-04-24] MEDS: Potassium Chloride 20 MEQ TABCR 40 MEQ PO (08:21)
[2019-04-24] MEDS: Lactobacillus Acidophilus CAP 1 CAP PO ×3 (08:21→21:12)
--- NOTE | 2019-04-24 09:56 | CMPROGNOTE_ITS ---
- If Service Date Differs Date of service: 04/24/19 Time of Service: 09:55 Care Management Progress Note S/O:Payal was sitting up in the chair animatedly chatting with her mother and friend when CM entered the room. She was smiling and engaged readily and stated that she is really hopeful that everything is getting better. She sited the fact that she was able to ambulate without the walker for the first time and the downward trending of her CPK. When asked about her Safety Plan, she acknowledged that the increase in privileges was very helpful. She stated she enjoys showering and having her sneakers for PT. informed her that the only changes that were made to the plan today were to allow personal care items which will be kept at the desk and given to her as needed.. She did ask if she could use nail clippers. CM will make the request at tomorrow's huddle, with the understanding that they would be kept at the desk and used under supervision of the CPSO. Arti is appropriate in all interactions since arriving at [facility]. She has demonstrated appropriate coping and communication skills and is engaged during staff interactions. Should Arti wants to leave [facility], she would need to be seen by [facility] Crisis Screener and re-evaluated prior to discharge. Huddle participants: Liset RN, Manny RN, Brittney KEY, Supriya Clinical Coordinator, Galileo, Nursing Manager Application, Evelyn KEY, Mojgan DESAI. SAFETY PLAN: 1. Will remain on suicide precautions and in paper clothes or hospital gown. She may wear sneakers from home (without laces) to participate in physical therapy. 2. Permitted to ambulate outside of room with [facility] staff escort at RN discretion. 3. May have paper cups, plates, finger foods as well as a metal spoon with which to eat meals. Utensil will be retrieved by staff at the end of the meal. 4. Follow [facility] Management of the Admitted Behavioral Health Patient policy. 5. Shower privileges (with CPSO in attendance). CPSO/SHAREPOINT ADMIN approved to provide shaving of armpits and legs (as patient has advocated for) at patient and RN discretion. 6. May have personal phone and weigher and charger, insulated mug, hairbrush, toothbrush and toothpaste, deodorant, tampons (to be kept at desk and dispensed individually as needed). 7. Visitors permitted at nursing discretion. 8. Female care providers should be assigned when available. Patient is currently voluntarily at [facility] and seeking inpatient admission when a bed becomes available. [facility] Frontline Extension Course Counselor will continue seeking placement. Please contact the Floor Press Operator Pocket Closer ([phone]) and [facility] Extension Course Counselor ([phone]) for any needed changes in the Safety Plan. Safety plan has been provided to interdepartmental care team.
--- NOTE | 2019-04-24 13:01 | PT.INTREAT ---
Date of service: 04/24/19 Time of Service: 13:01 PT Notes Inpatient Physical Therapy Treatment Note [facility] Date: 04/24/19 PRECAUTIONS: Suicidal Ideation, Fall SUBJECTIVE: Payal is agreeable to participating in PT. OBJECTIVE: PAIN: No c/o pain BED MOBILITY/TRANSFERS Sit-stand: I Stand-sit: I GAIT Assistive Device: No AD in a.m. Weight bearing: WBAT B Assist: CGA in a.m.; CGA-SBA in p.m. Distance: 150' x2 in a.m.; 150' x2 in p.m. THEREX: Patient completed functional [id number] at varying heights without UE support. NEURO RE-ED: Patient completed a static and dynamic standing balance and proprioceptive re-training program, as per flow sheet. Patient required intermittent U UE support with SLS exercise and was able to tolerate the addition of dynamic UE movements with static standing balance activities. STAIRS: Up/down 12x4 and 8x6 using 1 rail/SPC and a step-to pattern with SBA ASSESSMENT: Patient tolerated sessions well. She was able to tolerate a progression in gait training as she did not require use of FWW support. She was also able to tolerate a progression balance re-training. She would benefit from continued gait training and strengthening and balance re-training for improved mobility and ability to perform daily functional tasks at a more independent level. PLAN: Continue with PT's POC TREATMENT CODE/TIME: Session 1: 40 minutes; 27709 x2, [id number] Session 2: 20 minutes; [id number]
--- NOTE | 2019-04-24 13:06 | PTTR_ITS ---
Date of service: 04/24/19 Time of Service: 13:01 PT Notes Inpatient Physical Therapy Treatment Note [facility] Date: 04/24/19 PRECAUTIONS: Suicidal Ideation, Fall SUBJECTIVE: Payal is agreeable to participating in PT. OBJECTIVE: PAIN: No c/o pain BED MOBILITY/TRANSFERS Sit-stand: I Stand-sit: I GAIT Assistive Device: No AD in a.m. Weight bearing: WBAT B Assist: CGA in a.m.; CGA-SBA in p.m. Distance: 150' x2 in a.m.; 150' x2 in p.m. THEREX: Patient completed functional mta-vb-[id number] at varying heights without UE support. NEURO RE-ED: Patient completed a static and dynamic standing balance and proprioceptive re-training program, as per flow sheet. Patient required intermittent U UE support with SLS exercise and was able to tolerate the addition of dynamic UE movements with static standing balance activities. STAIRS: Up/down 12x4 and 8x6 using 1 rail/SPC and a step-to pattern with SBA ASSESSMENT: Patient tolerated sessions well. She was able to tolerate a progression in gait training as she did not require use of FWW support. She was also able to tolerate a progression balance re-training. She would benefit from continued gait training and strengthening and balance re-training for improved mobility and ability to perform daily functional tasks at a more independent level. PLAN: Continue with PT's POC TREATMENT CODE/TIME: Session 1: 40 minutes; 24762 x2, [id number] Session 2: 20 minutes; [id number]
--- NOTE | 2019-04-24 13:17 | PDOC.CMSAFE ---
- If Service Date Differs Date of service: 04/24/19 Time of Service: 13:18 Care Management Safety Plan Arti is appropriate in all interactions since arriving at [facility]. She has demonstrated appropriate coping and communication skills and is engaged during staff interactions. Should Arti wants to leave [facility], she would need to be seen by [facility] Crisis Screener and re-evaluated prior to discharge. Huddle participants: Liset RN, Manny RN, Brittney KEY, Supriya Clinical Coordinator, Galileo, Nursing Fibrous Plasterer, Evelyn KEY, Mojgan DESAI. SAFETY PLAN: 1. Will remain on suicide precautions and in paper clothes or hospital gown. She may wear sneakers from home (without laces) to participate in physical therapy. 2. Permitted to ambulate outside of room with [facility] staff escort at RN discretion. 3. May have paper cups, plates, finger foods as well as a metal spoon with which to eat meals. Utensil will be retrieved by staff at the end of the meal. 4. Follow [facility] Management of the Admitted Behavioral Health Patient policy. 5. Shower privileges (with CPSO in attendance). CPSO/HUMAN RESOURCE ADVISOR approved to provide shaving of armpits and legs (as patient has advocated for) at patient and RN discretion. 6. May have personal phone and provider network mgr, insulated mug, hairbrush, toothbrush and toothpaste, deodorant, tampons (to be kept at desk and dispensed individually as needed). 7. Visitors permitted at nursing discretion. 8. Female care providers should be assigned when available. Patient is currently voluntarily at [facility] and seeking inpatient admission when a bed becomes available. [facility] Frontline Event Marketing Intern will continue seeking placement. Please contact the Pediatric Associate Industrial Production Manager ([phone]) and [facility] Event Marketing Intern ([phone]) for any needed changes in the Safety Plan. Safety plan has been provided to interdepartmental care team.
--- NOTE | 2019-04-24 13:36 | CMSP_ITS ---
- If Service Date Differs Date of service: 04/24/19 Time of Service: 13:18 Care Management Safety Plan Arti is appropriate in all interactions since arriving at [facility]. She has demonstrated appropriate coping and communication skills and is engaged during staff interactions. Should Arti wants to leave [facility], she would need to be seen by [facility] Crisis Screener and re-evaluated prior to discharge. Huddle participants: Liset RN, Manny RN, Brittney KEY, Supriya Clinical Coordinator, Galileo, Nursing Passenger Flagman, Evelyn KEY, Mojgan DESAI. SAFETY PLAN: 1. Will remain on suicide precautions and in paper clothes or hospital gown. She may wear sneakers from home (without laces) to participate in physical therapy. 2. Permitted to ambulate outside of room with [facility] staff escort at RN discretion. 3. May have paper cups, plates, finger foods as well as a metal spoon with which to eat meals. Utensil will be retrieved by staff at the end of the meal. 4. Follow [facility] Management of the Admitted Behavioral Health Patient policy. 5. Shower privileges (with CPSO in attendance). CPSO/PRINT ROOM WORKER approved to provide shaving of armpits and legs (as patient has advocated for) at patient and RN discretion. 6. May have personal phone and market investigator, insulated mug, hairbrush, toothbrush and toothpaste, deodorant, tampons (to be kept at desk and dispensed individually as needed). 7. Visitors permitted at nursing discretion. 8. Female care providers should be assigned when available. Patient is currently voluntarily at [facility] and seeking inpatient admission when a bed becomes available. [facility] Frontline Cnc Mechanic will continue seeking placement. Please contact the Railroad Signal Operator Senior Director Marketing ([phone]) and [facility] Cnc Mechanic ([phone]) for any needed changes in the Safety Plan. Safety plan has been provided to interdepartmental care team.
--- NOTE | 2019-04-24 15:46 | W.PM.PROGNOT ---
Date of Service Date of service: 04/24/19 Time of Service: 15:46 Assessment and Plan (1) Rhabdomyolysis: Current visit: Yes Status: Acute CPK improving daily, down to 1765 today from 2792 yesterday. Continue NS. Continue to follow CPK and AST/ALT which are also improving daily. Renal function remains stable. Continue to monitor. (2) Aspiration pneumonitis: Current visit: Yes Status: Acute Completes 5 days of antibiotics including ceftriaxone and flagyl 04/22/19. Repeat chest x-ray showed no acute process. Symptoms have resolved. GI discomfort possibly related to antibiotics- improving. Continue schedule probiotics, PRN mylanta and zofran. (3) Suicide attempt by drug overdose: Current visit: Yes Status: Acute Remains at high risk for repeat suicide attempt. Continue CPSO. Continue to follow CPK. Mental health consult when she is medically cleared for referral to inpatient psychiatric hospitalization for stabilization. (4) Anxiety: Current visit: No Status: Acute Continue prn ativan. (5) Depression: Current visit: Yes Status: Chronic As above. (6) Leg weakness, bilateral: Current visit: Yes Status: Acute Likely due to rhabdomyolysis. She had a negative MRI spine. She has been seen by Neurology, Dr. Gutierrez feels this is related to rhabdo and expects continued improvement. If no improvement in the next month, she will need to be referred to the Neurology clinic for follow up. Doing well with PT. Continue PT/OT. (7) Hypokalemia: Current visit: Yes Status: Acute Continue to monitor. (8) DVT prophylaxis: Current visit: Yes Status: Acute Chemical DVT prophylaxis not indicated in this 33 year old ambulatory patient. Continue TEDs/scds. (9) Discharge planning issues: Current visit: Yes Status: Acute She is a FULL CODE. For voluntary psychiatric hospitalization for stabilization once medically stable. Continues to require medical care for rhabdomyolysis. This case was discussed with Dr. Gutiérrez who is in agreement. Subjective Interval history since last seen: Payal's mother is present again today. She reports that she is feeling ok today. She continues to have some anxiety. She is not tearful today. She is sitting up in the chair. She did not sleep well last night. We discussed options for sleep aid, she is willing to try melatonin and possibly benadryl. She continues to have some GI upset, however, she feels that it is improving, zofran helps. Her stools are becoming more formed. She is eating yogurt and taking probiotics. She reports that PT is going well, her legs still feel weak, she is having less leg pain today. She denies right ankle pain. Her cough has completely resolved, she does not have any shortness of breath or wheezing. She denies chest pain/pressure. She is eager to move forward and psychiatric stabilization, however, she is nervous about leaving the hospital as she has become very comfortable here with the staff. She continues to state that she knows that she needs psychiatric help and is willing to go to a psychiatric facility. Exam Narrative Exam Narrative: General: Very pleasant female, sitting up in the chair with her mother and CPSO by her side. She answers questions appropriately. She appears calm. HEENT: Normocephalic, atraumatic, pupils equal and round, EOMI, mucous membranes moist. Heart: Heart has regular rate and rhythm, nontachycardic, no murmur. Lungs: Respirations even and unlabored, lung sounds clear bilaterally. GI: normoacitve bowel sounds, abdomen is soft, nontender, nondistended Extremities: No clubbing, cyanosis or edema. Slightly more difficulty raising the RLE than the LLE. No significant tenderness on palpation today. Pedal pulses palpable bilaterally. Objective Objective Clinical Data: Abnormal lab results 04/24/19 Range/Units 06:30 Chloride 110 H (98-107) mmol/L AST 136 H (15-37) U/L ALT 212 H (12-78) U/L Creatine Kinase 1765 H (26-192) U/L Total Protein 6.2 L (6.4-8.2) g/dL Albumin 3.3 L (3.4-5.0) g/dL Vital Signs Temperature 36.7 C 04/24/19 08:15 Temperature Source Temporal Artery Scan 04/24/19 08:15 Pulse 67 04/24/19 08:15 Pulse Rhythm Regular 04/24/19 08:15 Pulse 76 04/20/19 16:28 Respiratory Rate 18 04/24/19 08:15 Respiratory Effort 04/24/19 08:15 Respiratory Depth Normal 04/24/19 08:15 Respiratory Pattern Normal 04/24/19 08:15 Blood Pressure 130/84 04/24/19 08:15 Blood Pressure Mean 81 04/20/19 16:28 Blood Pressure Position Supine 04/20/19 00:00 Pulse Oximetry 99 04/24/19 04:20 Respiratory End-tidal CO2 10 04/18/19 09:01 Oxygen Delivery Method Room Air 04/24/19 08:15 Oxygen Flow Rate 0 04/24/19 08:15 End Tidal Co2 32 04/17/19 16:17 Pain Level 4 04/24/19 08:21 Comment 04/20/19 17:57 Intake & Output 04/23/19 04/24/19 04/24/19 23:59 11:59 23:59 Intake Total 4483.333 / 8073.333 4790.000 / 5790.000 1000 / 5790.000 Output Total 2650 / 8425 5850 / 7350 1500 / 7350 Balance 1833.333 / -351.667 -1060.000 / -1560.000 -500 / -1560.000 Weight 81.1 kg Intake: IV 1903.333 / 3903.333 1870.000 / 2870.000 1000 / 2870.000 Oral 2580 / 4170 2920 / 2920 Output: Urine 2650 / 8425 5850 / 7350 1500 / 7350 Other: Urine Color Yellow Pale Pale [place] Yellow Urine Appearance Clear Clear Clear Urine Odor Normal Comment pT on her menstral cycle. Stool Size Small Moderate Stool Characteristics Soft Soft Voiding Methods Toilet Toilet Toilet Laboratory Results WBC 6.80 k/cumm (4.4-10.8) 04/23/19 06:40 RBC 4.42 m/cumm (4.00-5.20) 04/23/19 06:40 Hgb 13.0 g/dL (12.0-15.5) 04/23/19 06:40 Hct 39.2 % (36.0-46.0) 04/23/19 06:40 MCV 88.7 fL (80-95) 04/23/19 06:40 MCH 29.4 pg (27.0-33.0) 04/23/19 06:40 MCHC 33.2 g/dL (32.0-36.0) 04/23/19 06:40 RDW 14.0 % (11.7-14.6) 04/23/19 06:40 Plt Count 207 x1000/uL (130-400) 04/23/19 06:40 MPV 10.2 fL (8.0-11.0) 04/23/19 06:40 Immature Gran % 0.2 04/21/19 06:35 Neutrophils % 51.6 04/21/19 06:35 Lymphocytes % 38.3 04/21/19 06:35 Monocytes % 7.5 04/21/19 06:35 Eosinophils % 2.1 04/21/19 06:35 Basophils % 0.3 04/21/19 06:35 Absolute Neutrophils 3.22 k/cumm (1.2-6.7) 04/21/19 06:35 Absolute Lymphocytes 2.39 k/cumm (1.2-3.4) 04/21/19 06:35 Absolute Monocytes 0.47 k/cumm (0.11-0.7) 04/21/19 06:35 Absolute Eosinophils 0.13 k/cumm (0.0-0.7) 04/21/19 06:35 Absolute Basophils 0.02 k/cumm (0.0-0.2) 04/21/19 06:35 Differential Comment Diff reviewed 04/17/19 16:20 RBC Morphology Normal 04/17/19 16:20 Sample Site Left brachial 04/20/19 07:41 pCO2 21 mmHg (34-47) L 04/20/19 07:41 pO2 109 mmHg (83-108) H 04/20/19 07:41 O2 Saturation 99 % (94-98) H 04/20/19 07:41 ABG pH 7.69 (7.35-7.45) H* 04/20/19 07:41 ABG HCO3 25 mmol/L (22-28) 04/20/19 07:41 ABG Total CO2 21 mmol/L (22-29) L 04/20/19 07:41 ABG Base Excess 4.6 mmol/L (-3-3) H 04/20/19 07:41 VBG pH 7.49 (7.32-7.43) H 04/21/19 06:35 VBG pCO2 27 mm/Hg (34-47) L 04/21/19 06:35 VBG pO2 156 mm/Hg (28-44) H 04/21/19 06:35 VBG HCO3 20 mmol/L (22-28) L 04/21/19 06:35 VBG Total CO2 18 mmol/L (22-29) L 04/21/19 06:35 VBG O2 Saturation 99 % (70-80) H 04/21/19 06:35 VBG Base Excess -3.0 mmol/L (-3-3) 04/21/19 06:35 Oxygen Liter Flow R/a L 04/20/19 07:41 Sodium 144 mmol/L (136-145) 04/24/19 06:30 Potassium 4.0 mmol/L (3.5-5.1) 04/24/19 06:30 Chloride 110 mmol/L (98-107) H 04/24/19 06:30 Carbon Dioxide 25.4 mmol/L (21.0-32.0) 04/24/19 06:30 Anion Gap 8.6 mmol/L (3-11) 04/24/19 06:30 BUN 8 mg/dL (7-18) 04/24/19 06:30 Creatinine 0.65 mg/dL (0.55-1.02) 04/24/19 06:30 Estimated GFR/1.73 m2 >= 60.00 (mL/min/1.73m2) 04/24/19 06:30 Glucose 96 mg/dL (70-100) 04/24/19 06:30 Calcium 8.7 mg/dL (8.5-10.1) 04/24/19 06:30 Magnesium 1.9 mg/dL (1.8-2.4) 04/21/19 06:35 Total Bilirubin 0.4 mg/dL (0.2-1.0) 04/24/19 06:30 Conjugated Bilirubin 0.12 mg/dL (0.00-0.20) 04/22/19 06:35 AST 136 U/L (15-37) H 04/24/19 06:30 ALT 212 U/L (12-78) H 04/24/19 06:30 Alkaline Phosphatase 49 U/L (46-116) 04/24/19 06:30 Creatine Kinase 1765 U/L (26-192) H 04/24/19 06:30 Total Protein 6.2 g/dL (6.4-8.2) L 04/24/19 06:30 Albumin 3.3 g/dL (3.4-5.0) L 04/24/19 06:30 TSH 3.13 uIU/mL (0.358-3.74) 04/17/19 16:20 Serum HCG, Qual Negative 04/17/19 16:20 Urine Color Yellow (Yellow) 04/20/19 10:20 Urine Clarity Clear 04/20/19 10:20 Urine pH 8.5 (5-8) H 04/20/19 10:20 Ur Specific [place] 1.015 (1.005-1.025) 04/20/19 10:20 Urine Protein Negative mg/dL (Negative) 04/20/19 10:20 Urine Ketones Negative mg/dL (Negative) 04/20/19 10:20 Urine Blood Trace-intact (Negative) H 04/20/19 10:20 Urine Nitrite Negative (Negative) 04/20/19 10:20 Urine Bilirubin Negative (Negative) 04/20/19 10:20 Urine Urobilinogen 0.2 EU/dL (Up TO 0.2) 04/20/19 10:20 Ur Leukocyte Esterase Negative (Negative) 04/20/19 10:20 Urine RBC 3-5 (0-2) H 04/20/19 10:20 Urine WBC 0-2 HPF (0-5) 04/20/19 10:20 Ur Epithelial Cells Negative HPF (Negative) 04/20/19 10:20 Urine Crystals Negative HPF (Negative) 04/20/19 10:20 Urine Bacteria Rare HPF (Negative) 04/20/19 10:20 Urine Casts Negative LPF (Negative) 04/20/19 10:20 Urine Mucus Trace (Negative) 04/20/19 10:20 Urine Other Rare transitional (Negative) 04/20/19 10:20 Ur Culture Indicated? No 04/20/19 10:20 Urine Myoglobin >5000 mcg/L (<=21) H 04/17/19 17:00 Urine Glucose Negative mg/dL (Negative) 04/20/19 10:20 Salicylates 4.1 mg/dL (2.8-20.0) 04/17/19 16:20 Urine Opiates Screen Positive (Negative) 04/17/19 17:03 Urine Methadone Screen Negative (Negative) 04/17/19 17:03 Acetaminophen < 2 ug/mL (10-30) L 04/17/19 16:20 Ur Barbiturates Screen Negative (Negative) 04/17/19 17:03 Ur Tricyclics Screen Negative (Negative) 04/17/19 17:03 Ur Amphetamines Screen Negative (Negative) 04/17/19 17:03 U Benzodiazepines Scrn Negative (Negative) 04/17/19 17:03 Urine Cocaine Screen Negative (Negative) 04/17/19 17:03 Ur THC Screen Positive (Negative) 04/17/19 17:03 Ethyl Alcohol < 3.0 mg/dL (<3) 04/17/19 16:20 A.phagocytophil DNA PCR Negative (Negative) 04/19/19 16:18 B. divergens/MO-1 PCR Negative (Negative) 04/19/19 16:18 Babesia duncani (PCR) Negative (Negative) 04/19/19 16:18 Babesia microti DNA PCR Negative (Negative) 04/19/19 16:18 Borrelia (PCR) Negative (Negative) 04/19/19 16:18 Lyme Disease Antibody Negative 04/19/19 16:18 E.chaffeensis DNA (PCR) Negative (Negative) 04/19/19 16:18 E.ewingii/canis DNA PCR Negative (Negative) 04/19/19 16:18 E. muris-like DNA (PCR) Negative (Negative) 04/19/19 16:18
[2019-04-24] MEDS: Mylanta Suspension 30 ML CUP PO (15:47)
[2019-04-24 16:00] VITALS: BP 119/85; PULSE 87; RESP 18; TEMP 37.4; O2SAT 100
[2019-04-24 19:06] VITALS: BP 131/88; PULSE 66; RESP 18; TEMP 37.7; O2SAT 100
[2019-04-24] MEDS: Melatonin 3 MG TAB PO (21:47)
[2019-04-24 23:00] VITALS: BP 123/73; PULSE 64; RESP 18; TEMP 37.2; O2SAT 99
[2019-04-25] MEDS: Normal Saline 1,000 ML 200 ML IV ×4 (02:36→19:35)
[2019-04-25 04:30] VITALS: BP 122/75; PULSE 66; RESP 16; TEMP 37; O2SAT 99
[2019-04-25] MEDS: traMADol 50 MG TAB PO ×4 (04:38→23:45)
[2019-04-25] MEDS: LORazepam 0.5 MG TAB PO (06:45)
[2019-04-25 07:24] LABS: ALT 182 U/L (12-78); AST 92 U/L (15-37); Albumin 3.3 g/dL (3.4-5.0); Alkaline Phosphatase 41 U/L (46-116); Anion Gap 10.5 mmol/L (3-11); BUN 5 mg/dL (7-18); Bilirubin, Total 0.5 mg/dL (0.2-1.0); CO2 25.5 mmol/L (21.0-32.0); CREATININE 0.63 mg/dL (0.55-1.02); Calcium 8.7 mg/dL (8.5-10.1); Chloride 109 mmol/L (98-107); Glucose 86 mg/dL (70-100); Potassium 3.8 mmol/L (3.5-5.1); Sodium 145 mmol/L (136-145); Total Protein 6.2 g/dL (6.4-8.2)
[2019-04-25 07:25] VITALS: BP 127/85; PULSE 69; RESP 18; TEMP 37; O2SAT 100
[2019-04-25 07:25] LABS: Creatine Kinase 1057 U/L (26-192)
--- NOTE | 2019-04-25 08:15 | CMPROGNOTE_ITS ---
- If Service Date Differs Date of service: 04/25/19 Time of Service: 08:14 Care Management Progress Note S/O:Payal was sitting up in bed, fully dressed, when CM came to visit. She was smiling broadly and expressed appreciation for having been given added privileges which included the ability to wear street clothes. She reiterated that she is looking forward to new beginnings and plans to find a new psychiatrist and therapist when she is discharged home. She also relayed her intention to continue with physical therapy when discharged. Payal shared that all of the CPSOs that have been with her have been very helpful, kind and understanding. She states that she is looking forward to being discharged but that she loves everyone here and feels that she has been very well cared for. Arti is appropriate in all interactions since arriving at [facility]. She has demonstrated appropriate coping and communication skills and is engaged during staff interactions. Should Arti wants to leave [facility], she would need to be seen by [facility] Crisis Screener and re-evaluated prior to discharge. Huddle participants: Cora PORTILLO, Brittney KEY, Supriya Clinical Coordinator, Rhett Nursing Ice Cream Machine Operator, SAFETY PLAN: 1. Will remain on suicide precautions. May wear her own street clothes as long as there are no strings, cords etc. She may wear sneakers from home (without laces) to participate in physical therapy. 2. Permitted to ambulate outside of room with [facility] staff escort at RN discretion. 3. May have paper cups, plates, finger foods as well as a metal spoon with which to eat meals. Utensil will be retrieved by staff at the end of the meal. 4. Follow [facility] Management of the Admitted Behavioral Health Patient policy. 5. Shower privileges (with CPSO in attendance). CPSO/REBAR FABRICATOR approved to provide shaving of armpits and legs (as patient has advocated for) at patient and RN discretion. 6. May have personal phone and electric melt operator, insulated mug, hairbrush, toothbrush and toothpaste, deodorant, tampons (to be kept at desk and dispensed individually as needed).May have and use an emery board. 7. Visitors permitted at nursing discretion. 8. Female care providers should be assigned when available. Patient is currently voluntarily at [facility] and seeking inpatient admission when a bed becomes available. [facility] Frontline Pneumatic Jack Operator will continue seeking placement. Please contact the Buff Wheel Fabricator Printing Plate Clerk ([phone]) and [facility] Kavya is Worker ([phone]) for any needed changes in the Safety Plan. Safety plan has been provided to interdepartmental care team. cc:
[2019-04-25] MEDS: Lactobacillus Acidophilus CAP 1 CAP PO ×3 (09:06→19:35)
[2019-04-25] MEDS: Pantoprazole 40 MG TABCR PO (09:06)
[2019-04-25] MEDS: Potassium Chloride 20 MEQ TABCR 40 MEQ PO (09:07)
[2019-04-25] MEDS: Ondansetron O.D.T. 4 MG TABEF PO (10:30)
--- NOTE | 2019-04-25 12:46 | PGE_ITS ---
Date of Service Date of service: 04/25/19 Time of Service: 12:41 Assessment and Plan (1) Rhabdomyolysis: Current visit: Yes Status: Acute CPK improving daily, down to 1057 today. Continue NS. Continue to follow CPK and AST/ALT which are also improving daily. Renal function remains stable. Continues to have some GI upset- Continue PRN zofran and mylanta. Continue to monitor. (2) Aspiration pneumonitis: Current visit: Yes Status: Acute Completed 5 days of antibiotics including ceftriaxone and flagyl 04/22/19. Repeat chest x-ray showed no acute process. Symptoms have resolved. (3) Suicide attempt by drug overdose: Current visit: Yes Status: Acute Remains at high risk for repeat suicide attempt. Attempt was serious. Continue CPSO. Continue to follow CPK. Mental health consult when she is medically cleared for referral to inpatient psychiatric hospitalization for stabilization. Will need ongoing community supports after stabilization. (4) Anxiety: Current visit: No Status: Acute Continue prn ativan. (5) Depression: Current visit: Yes Status: Chronic As above. (6) Leg weakness, bilateral: Current visit: Yes Status: Acute Likely due to rhabdomyolysis. She had a negative MRI spine. She has been seen by Neurology, Dr. Gutierrez feels this is related to rhabdo and expects continued improvement. If no improvement in the next month, she will need to be referred to the Neurology clinic for follow up. Doing well with PT. Continue PT/OT. (7) Hypokalemia: Current visit: Yes Status: Acute Continue to monitor. (8) DVT prophylaxis: Current visit: Yes Status: Acute Chemical DVT prophylaxis not indicated in this 33 year old ambulatory patient. Continue TEDs/scds. (9) Discharge planning issues: Current visit: Yes Status: Acute She is a FULL CODE. For voluntary psychiatric hospitalization for stabilization once medically stable. Continues to require medical care for rhabdomyolysis. Dr. Gutiérrez discussed option of transfer to tertiary care facility, however, the patient wished to remain here for treatment. This case was discussed with Dr. Gutiérrez who is in agreement. Subjective Interval history since last seen: Payal reports that she slept better last night with the addition of melatonin at HS. She continues to feel anxious today, slightly more than yesterday. She continues to have some GI upset, zofran helps. Her stools are still somewhat loose, not watery. Her appetite was poor yesterday, she report some improvement in her appetite today, still not at baseline. She continues to have weakness, numbness and tingling to BLEs as well as pain. She is working with PT and notes improvement with every session. She no longer has a cough, she denies shortness of breath or wheezing. She denies chest pain/pressure. She is eager to move forward and psychiatric stabilization, however, she is nervous about leaving the hospital as she has become very comfortable here with the staff. She continues to state that she knows that she needs psychiatric help and is willing to go to a psychiatric facility. We discussed the importance of being well connected in the community after her hospitalization. She is working on changing primary care providers and finding a therapist. Exam Narrative Exam Narrative: General: Very pleasant female, sitting up in the chair with CPSO present. She answers questions appropriately. She appears anxious today. HEENT: Normocephalic, atraumatic, pupils equal and round, EOMI, mucous membranes moist. Heart: Heart has regular rate and rhythm, nontachycardic, no murmur. Lungs: Respirations even and unlabored, lung sounds clear bilaterally. GI: normoacitve bowel sounds, abdomen is soft, nontender, nondistended Extremities: No clubbing or cyanosis. Feet cool to touch, TEDs on bilaterally. Mild left ankle edema noted. No significant pain on palpation. Pedal pulses palpable bilaterally. Objective Objective Clinical Data: Abnormal lab results 04/25/19 Range/Units 06:40 Chloride 109 H (98-107) mmol/L BUN 5 L (7-18) mg/dL AST 92 H (15-37) U/L ALT 182 H (12-78) U/L Alkaline Phosphatase 41 L (46-116) U/L Creatine Kinase 1057 H (26-192) U/L Total Protein 6.2 L (6.4-8.2) g/dL Albumin 3.3 L (3.4-5.0) g/dL Vital Signs Temperature 37 C 04/25/19 07:25 Temperature Source Tympanic 04/25/19 07:25 Pulse 69 04/25/19 07:25 Pulse Rhythm Regular 04/25/19 08:48 Pulse 76 04/20/19 16:28 Respiratory Rate 18 04/25/19 07:25 Respiratory Effort Non-Labored 04/25/19 08:48 Respiratory Depth Normal 04/25/19 08:48 Respiratory Pattern Normal 04/25/19 08:48 Blood Pressure 127/85 04/25/19 07:25 Blood Pressure Mean 81 04/20/19 16:28 Blood Pressure Position Supine 04/20/19 00:00 Pulse Oximetry 100 04/25/19 07:25 Respiratory End-tidal CO2 10 04/18/19 09:01 Oxygen Delivery Method Room Air 04/25/19 07:25 Oxygen Flow Rate 0 04/25/19 07:25 End Tidal Co2 32 04/17/19 16:17 Pain Level 3 04/25/19 10:52 Comment 04/20/19 17:57 Intake & Output 04/24/19 04/25/19 04/25/19 23:59 11:59 23:59 Intake Total 1999 / 90.000 5823.333 / 5823.333 Output Total 5800 / 83003 4900 / 4900 Balance -3800 / -5560.000 923.333 / 923.333 Weight 80.7 kg Intake: IV 1999 / 3870.000 1982.333 / 1982.333 Oral 3840 / 3840 Output: Urine 5800 / 67411 4900 / 4900 Other: Urine Color Yellow Pale Yellow Urine Appearance Clear Clear Urine Odor Normal None Comment The patient is having her period. Stool Size Small Small Stool Characteristics Soft Soft Brown Voiding Methods Toilet Toilet Laboratory Results WBC 6.80 k/cumm (4.4-10.8) 04/23/19 06:40 RBC 4.42 m/cumm (4.00-5.20) 04/23/19 06:40 Hgb 13.0 g/dL (12.0-15.5) 04/23/19 06:40 Hct 39.2 % (36.0-46.0) 04/23/19 06:40 MCV 88.7 fL (80-95) 04/23/19 06:40 MCH 29.4 pg (27.0-33.0) 04/23/19 06:40 MCHC 33.2 g/dL (32.0-36.0) 04/23/19 06:40 RDW 14.0 % (11.7-14.6) 04/23/19 06:40 Plt Count 207 x1000/uL (130-400) 04/23/19 06:40 MPV 10.2 fL (8.0-11.0) 04/23/19 06:40 Immature Gran % 0.2 04/21/19 06:35 Neutrophils % 51.6 04/21/19 06:35 Lymphocytes % 38.3 04/21/19 06:35 Monocytes % 7.5 04/21/19 06:35 Eosinophils % 2.1 04/21/19 06:35 Basophils % 0.3 04/21/19 06:35 Absolute Neutrophils 3.22 k/cumm (1.2-6.7) 04/21/19 06:35 Absolute Lymphocytes 2.39 k/cumm (1.2-3.4) 04/21/19 06:35 Absolute Monocytes 0.47 k/cumm (0.11-0.7) 04/21/19 06:35 Absolute Eosinophils 0.13 k/cumm (0.0-0.7) 04/21/19 06:35 Absolute Basophils 0.02 k/cumm (0.0-0.2) 04/21/19 06:35 Differential Comment Diff reviewed 04/17/19 16:20 RBC Morphology Normal 04/17/19 16:20 Sample Site Left brachial 04/20/19 07:41 pCO2 21 mmHg (34-47) L 04/20/19 07:41 pO2 109 mmHg (83-108) H 04/20/19 07:41 O2 Saturation 99 % (94-98) H 04/20/19 07:41 ABG pH 7.69 (7.35-7.45) H* 04/20/19 07:41 ABG HCO3 25 mmol/L (22-28) 04/20/19 07:41 ABG Total CO2 21 mmol/L (22-29) L 04/20/19 07:41 ABG Base Excess 4.6 mmol/L (-3-3) H 04/20/19 07:41 VBG pH 7.49 (7.32-7.43) H 04/21/19 06:35 VBG pCO2 27 mm/Hg (34-47) L 04/21/19 06:35 VBG pO2 156 mm/Hg (28-44) H 04/21/19 06:35 VBG HCO3 20 mmol/L (22-28) L 04/21/19 06:35 VBG Total CO2 18 mmol/L (22-29) L 04/21/19 06:35 VBG O2 Saturation 99 % (70-80) H 04/21/19 06:35 VBG Base Excess -3.0 mmol/L (-3-3) 04/21/19 06:35 Oxygen Liter Flow R/a L 04/20/19 07:41 Sodium 145 mmol/L (136-145) 04/25/19 06:40 Potassium 3.8 mmol/L (3.5-5.1) 04/25/19 06:40 Chloride 109 mmol/L (98-107) H 04/25/19 06:40 Carbon Dioxide 25.5 mmol/L (21.0-32.0) 04/25/19 06:40 Anion Gap 10.5 mmol/L (3-11) 04/25/19 06:40 BUN 5 mg/dL (7-18) L 04/25/19 06:40 Creatinine 0.63 mg/dL (0.55-1.02) 04/25/19 06:40 Estimated GFR/1.73 m2 >= 60.00 (mL/min/1.73m2) 04/25/19 06:40 Glucose 86 mg/dL (70-100) 04/25/19 06:40 Calcium 8.7 mg/dL (8.5-10.1) 04/25/19 06:40 Magnesium 1.9 mg/dL (1.8-2.4) 04/21/19 06:35 Total Bilirubin 0.5 mg/dL (0.2-1.0) 04/25/19 06:40 Conjugated Bilirubin 0.12 mg/dL (0.00-0.20) 04/22/19 06:35 AST 92 U/L (15-37) H 04/25/19 06:40 ALT 182 U/L (12-78) H 04/25/19 06:40 Alkaline Phosphatase 41 U/L (46-116) L 04/25/19 06:40 Creatine Kinase 1057 U/L (26-192) H 04/25/19 06:40 Total Protein 6.2 g/dL (6.4-8.2) L 04/25/19 06:40 Albumin 3.3 g/dL (3.4-5.0) L 04/25/19 06:40 TSH 3.13 uIU/mL (0.358-3.74) 04/17/19 16:20 Serum HCG, Qual Negative 04/17/19 16:20 Urine Color Yellow (Yellow) 04/20/19 10:20 Urine Clarity Clear 04/20/19 10:20 Urine pH 8.5 (5-8) H 04/20/19 10:20 Ur Specific [place] 1.015 (1.005-1.025) 04/20/19 10:20 Urine Protein Negative mg/dL (Negative) 04/20/19 10:20 Urine Ketones Negative mg/dL (Negative) 04/20/19 10:20 Urine Blood Trace-intact (Negative) H 04/20/19 10:20 Urine Nitrite Negative (Negative) 04/20/19 10:20 Urine Bilirubin Negative (Negative) 04/20/19 10:20 Urine Urobilinogen 0.2 EU/dL (Up TO 0.2) 04/20/19 10:20 Ur Leukocyte Esterase Negative (Negative) 04/20/19 10:20 Urine RBC 3-5 (0-2) H 04/20/19 10:20 Urine WBC 0-2 HPF (0-5) 04/20/19 10:20 Ur Epithelial Cells Negative HPF (Negative) 04/20/19 10:20 Urine Crystals Negative HPF (Negative) 04/20/19 10:20 Urine Bacteria Rare HPF (Negative) 04/20/19 10:20 Urine Casts Negative LPF (Negative) 04/20/19 10:20 Urine Mucus Trace (Negative) 04/20/19 10:20 Urine Other Rare transitional (Negative) 04/20/19 10:20 Ur Culture Indicated? No 04/20/19 10:20 Urine Myoglobin >5000 mcg/L (<=21) H 04/17/19 17:00 Urine Glucose Negative mg/dL (Negative) 04/20/19 10:20 Salicylates 4.1 mg/dL (2.8-20.0) 04/17/19 16:20 Urine Opiates Screen Positive (Negative) 04/17/19 17:03 Urine Methadone Screen Negative (Negative) 04/17/19 17:03 Acetaminophen < 2 ug/mL (10-30) L 04/17/19 16:20 Ur Barbiturates Screen Negative (Negative) 04/17/19 17:03 Ur Tricyclics Screen Negative (Negative) 04/17/19 17:03 Ur Amphetamines Screen Negative (Negative) 04/17/19 17:03 U Benzodiazepines Scrn Negative (Negative) 04/17/19 17:03 Urine Cocaine Screen Negative (Negative) 04/17/19 17:03 Ur THC Screen Positive (Negative) 04/17/19 17:03 Ethyl Alcohol < 3.0 mg/dL (<3) 04/17/19 16:20 A.phagocytophil DNA PCR Negative (Negative) 04/19/19 16:18 B. divergens/MO-1 PCR Negative (Negative) 04/19/19 16:18 Babesia duncani (PCR) Negative (Negative) 04/19/19 16:18 Babesia microti DNA PCR Negative (Negative) 04/19/19 16:18 Borrelia (PCR) Negative (Negative) 04/19/19 16:18 Lyme Disease Antibody Negative 04/19/19 16:18 E.chaffeensis DNA (PCR) Negative (Negative) 04/19/19 16:18 E.ewingii/canis DNA PCR Negative (Negative) 04/19/19 16:18 E. muris-like DNA (PCR) Negative (Negative) 04/19/19 16:18
[2019-04-25] MEDS: Acetaminophen 325 MG TAB 650 MG PO ×2 (13:18→20:36)
--- NOTE | 2019-04-25 13:55 | CHAPLAIN ---
Payal has had lots of company, including her mom, sisters, boyfriend and two children. Today I visited with her while she was alone. She said she is working with PT to get her legs moving better and they are painful, especially at night. Payal said she is considering this hospitalization as a change to start anew, and begin to make some changes, from cutting her hair, to asking to change her work hours. She very much likes her job and wants to stay there. We talked about her impression of God, and how she views and uses prayer. Her boyfriend doesn't hold the same spiritual beliefs that she does to we talked about rituals she might use for herself to practice connecting with herself and her sense of God. She said that she will consider speaking with Rev. Sofya Alexander, the rail assembler at her work, and she also looks forward to be being connected to a counselor.
--- NOTE | 2019-04-25 15:09 | PDOC.CMSAFE ---
- If Service Date Differs Date of service: 04/25/19 Time of Service: 15:09 Care Management Safety Plan Arti is appropriate in all interactions since arriving at [facility]. She has demonstrated appropriate coping and communication skills and is engaged during staff interactions. Should Arti wants to leave [facility], she would need to be seen by [facility] Crisis Screener and re-evaluated prior to discharge. Huddle participants: Cora RN, Brittney KEY, Supriya Clinical Coordinator, Rhett Nursing Hazardous Materials Tanker Driver, SAFETY PLAN: 1. Will remain on suicide precautions. May wear her own street clothes as long as there are no strings, cords etc. She may wear sneakers from home (without laces) to participate in physical therapy. 2. Permitted to ambulate outside of room with [facility] staff escort at RN discretion. 3. May have paper cups, plates, finger foods as well as a metal spoon with which to eat meals. Utensil will be retrieved by staff at the end of the meal. 4. Follow [facility] Management of the Admitted Behavioral Health Patient policy. 5. Shower privileges (with CPSO in attendance). CPSO/NURSERY SCHOOL ATTENDANT approved to provide shaving of armpits and legs (as patient has advocated for) at patient and RN discretion. 6. May have personal phone and ore charger, insulated mug, hairbrush, toothbrush and toothpaste, deodorant, tampons (to be kept at desk and dispensed individually as needed).May have and use an emery board. 7. Visitors permitted at nursing discretion. 8. Female care providers should be assigned when available. Patient is currently voluntarily at [facility] and seeking inpatient admission when a bed becomes available. [facility] Frontline Full Time Paramedic will continue seeking placement. Please contact the Panel Lay Up Worker Software Quality Automation Engineer ([phone]) and [facility] Full Time Paramedic ([phone]) for any needed changes in the Safety Plan. Safety plan has been provided to interdepartmental care team.
--- NOTE | 2019-04-25 15:10 | CMSP_ITS ---
- If Service Date Differs Date of service: 04/25/19 Time of Service: 15:09 Care Management Safety Plan Arti is appropriate in all interactions since arriving at [facility]. She has demonstrated appropriate coping and communication skills and is engaged during staff interactions. Should Arti wants to leave [facility], she would need to be seen by [facility] Crisis Screener and re-evaluated prior to discharge. Huddle participants: Cora RN, Brittney KEY, Supriya Clinical Coordinator, Rhett Nursing Riveter Hand, SAFETY PLAN: 1. Will remain on suicide precautions. May wear her own street clothes as long as there are no strings, cords etc. She may wear sneakers from home (without laces) to participate in physical therapy. 2. Permitted to ambulate outside of room with [facility] staff escort at RN discretion. 3. May have paper cups, plates, finger foods as well as a metal spoon with which to eat meals. Utensil will be retrieved by staff at the end of the meal. 4. Follow [facility] Management of the Admitted Behavioral Health Patient policy. 5. Shower privileges (with CPSO in attendance). CPSO/PNEUMATIC HOIST OPERATOR approved to provide shaving of armpits and legs (as patient has advocated for) at patient and RN discretion. 6. May have personal phone and plant reliability engineer, insulated mug, hairbrush, toothbrush and toothpaste, deodorant, tampons (to be kept at desk and dispensed individually as needed).May have and use an emery board. 7. Visitors permitted at nursing discretion. 8. Female care providers should be assigned when available. Patient is currently voluntarily at [facility] and seeking inpatient admission when a bed becomes available. [facility] Frontline Head Men'S Tennis Coach will continue seeking placement. Please contact the Car Shunter Machinist Bench ([phone]) and [facility] Head Men'S Tennis Coach ([phone]) for any needed changes in the Safety Plan. Safety plan has been provided to interdepartmental care team.
[2019-04-25 15:53] VITALS: BP 132/80; PULSE 53; RESP 17; TEMP 37; O2SAT 100
[2019-04-25 19:26] VITALS: BP 114/75; PULSE 67; RESP 18; TEMP 36.7; O2SAT 100
--- NOTE | 2019-04-25 20:53 | PT.INTREAT ---
Date of service: 04/25/19 Time of Service: 20:53 PT Notes Inpatient Physical Therapy Treatment Note [facility] Date: 04/25/19 PRECAUTIONS: Suicidal Ideation, Fall SUBJECTIVE: Payal is excited about the progress she feels she is making. She has been wearing shoes with all gait, as well as utilizing an SOC, and feels more steady at this point. OBJECTIVE: PAIN: No c/o pain BED MOBILITY/TRANSFERS Sit-stand: I Stand-sit: I GAIT Assistive Device: No AD in a.m. Weight bearing: WBAT B Assist: CGA-SBA in a.m.; SBA in p.m. Distance: 200' in a.m.; 200' in p.m. THEREX: Patient completed functional mmi-ie-ozdfic at varying heights without UE support. NEURO RE-ED: Patient completed a static and dynamic standing balance and proprioceptive re-training program, as per flow sheet. Patient required intermittent U UE support with cone weave, cone tap, cone tap and [place], and zmwu-dbd-ouskw exercises. Patient was able to tolerate the addition of dynamic head and neck movements, up/down/left/right during gait training without LOB. Patient requires gait belt and CGA for all static and dynamic balance activities at this time. ASSESSMENT: Patient tolerated sessions well. She was able to tolerate a progression in gait distance with SPC support and SBA. She was also able to tolerate a progression balance re-training, tolerating the addition of more complex dynamic balance activities. She would benefit from continued gait training and strengthening and balance re-training for improved mobility and ability to perform daily functional tasks at a more independent level. PLAN: Continue with PT's POC TREATMENT CODE/TIME: Session 1: 30 minutes; [id number], [id number] Session 2: 35 minutes; [id number] x2
--- NOTE | 2019-04-25 20:59 | PTTR_ITS ---
Date of service: 04/25/19 Time of Service: 20:53 PT Notes Inpatient Physical Therapy Treatment Note [facility] Date: 04/25/19 PRECAUTIONS: Suicidal Ideation, Fall SUBJECTIVE: Payal is excited about the progress she feels she is making. She has been wearing shoes with all gait, as well as utilizing an SOC, and feels more steady at this point. OBJECTIVE: PAIN: No c/o pain BED MOBILITY/TRANSFERS Sit-stand: I Stand-sit: I GAIT Assistive Device: No AD in a.m. Weight bearing: WBAT B Assist: CGA-SBA in a.m.; SBA in p.m. Distance: 200' in a.m.; 200' in p.m. THEREX: Patient completed functional nuw-qe-mizgtb at varying heights without UE support. NEURO RE-ED: Patient completed a static and dynamic standing balance and proprioceptive re-training program, as per flow sheet. Patient required intermittent U UE support with cone weave, cone tap, cone tap and [place], and pfjk-ksj-nczyf exercises. Patient was able to tolerate the addition of dynamic head and neck movements, up/down/left/right during gait training without LOB. Patient requires gait belt and CGA for all static and dynamic balance activities at this time. ASSESSMENT: Patient tolerated sessions well. She was able to tolerate a progression in gait distance with SPC support and SBA. She was also able to tolerate a progression balance re-training, tolerating the addition of more complex dynamic balance activities. She would benefit from continued gait training and strengthening and balance re-training for improved mobility and ability to perform daily functional tasks at a more independent level. PLAN: Continue with PT's POC TREATMENT CODE/TIME: Session 1: 30 minutes; [id number], [id number] Session 2: 35 minutes; [id number] x2
[2019-04-25] MEDS: Melatonin 3 MG TAB PO (23:45)
[2019-04-25 23:49] VITALS: BP 134/80; PULSE 84; RESP 17; TEMP 36.5; O2SAT 100
[2019-04-26] MEDS: Normal Saline 1,000 ML 200 ML IV ×2 (00:10→06:19)
[2019-04-26 04:20] VITALS: BP 117/80; PULSE 76; RESP 17; TEMP 36.6; O2SAT 99
[2019-04-26] MEDS: Acetaminophen 325 MG TAB 650 MG PO ×2 (04:44→20:22)
[2019-04-26 07:31] LABS: Anion Gap 10.5 mmol/L (3-11); BUN 6 mg/dL (7-18); CO2 25.5 mmol/L (21.0-32.0); CREATININE 0.66 mg/dL (0.55-1.02); Calcium 8.9 mg/dL (8.5-10.1); Chloride 107 mmol/L (98-107); Creatine Kinase 688 U/L (26-192); Glucose 101 mg/dL (70-100); Potassium 3.9 mmol/L (3.5-5.1); Sodium 143 mmol/L (136-145); TSH (W/Ref FT4) 3.21 uIU/mL (0.358-3.74)
[2019-04-26 07:59] VITALS: BP 110/72; PULSE 83; RESP 18; TEMP 36.9; O2SAT 100
[2019-04-26 07:59] LABS: Vitamin D 25 Total 13.7 ng/ml (30-100)
[2019-04-26 08:08] LABS: Vitamin B12 306 pg/mL (193-986)
[2019-04-26] MEDS: Lactobacillus Acidophilus CAP 1 CAP PO ×3 (08:58→20:22)
[2019-04-26] MEDS: LORazepam 0.5 MG TAB PO ×2 (08:58→16:50)
[2019-04-26] MEDS: Pantoprazole 40 MG TABCR PO (08:58)
[2019-04-26] MEDS: Potassium Chloride 20 MEQ TABCR 40 MEQ PO (08:59)
[2019-04-26] MEDS: Normal Saline Flush 10 ML SYR IVP ×2 (09:05→20:23)
--- NOTE | 2019-04-26 11:40 | PDOC.MHCN ---
Date of service: 04/26/19 Time of Service: 11:04 Mental Health Crisis Note Presenting Issue How did you arrive at the ED and why did you come: Patient arrived at the ED due to overdose of morphine . Precipitating Factors Patient denies SI/HI at this time but does not feel comfortable going home, patient feels like she will not get the help she needs if she does not go to a [facility] for medication stabilization and counseling. Disposition BEHAVIOR: Calm, cooperative EYE CONTACT: very good MOOD: pleasant AFFECT: broad APPETITE: up and down, patient stated that she feels full from all the fluids. SLEEP(trouble falling/staying asleep: Patient stated that she has not been sleeping good but got 7 hours last night. Patient stated that she frequently wakes up due to stiffness in her legs. Plan Patient will continue to stay at [facility] until accepted to [facility] or [facility] beds available. Signature Clinician's Name/Title: Corky Araujo Emergency clinician
--- NOTE | 2019-04-26 12:02 | PDOC.MHCN_ITS ---
Date of service: 04/26/19 Time of Service: 11:04 Mental Health Crisis Note Presenting Issue How did you arrive at the ED and why did you come: Patient arrived at the ED due to overdose of morphine . Precipitating Factors Patient denies SI/HI at this time but does not feel comfortable going home, patient feels like she will not get the help she needs if she does not go to a [facility] hospital for medication stabilization and counseling. Disposition BEHAVIOR: Calm, cooperative EYE CONTACT: very good MOOD: pleasant AFFECT: broad APPETITE: up and down, patient stated that she feels full from all the fluids. SLEEP(trouble falling/staying asleep: Patient stated that she has not been sleeping good but got 7 hours last night. Patient stated that she frequently wakes up due to stiffness in her legs. Plan Patient will continue to stay at [facility] until accepted to [facility] or [facility] beds available. Signature Clinician's Name/Title: Corky Araujo Emergency clinician
--- NOTE | 2019-04-26 12:21 | PT.INTREAT ---
Date of service: 04/26/19 Time of Service: 12:21 PT Notes Inpatient Physical Therapy Treatment Note [facility] Date: 04/26/19 PRECAUTIONS: Suicidal Ideation, Fall SUBJECTIVE: Payal marshallues to feel excited about the progress she feels she is making. OBJECTIVE: Payal demonstrates appropriate physical ability and safety awareness to be cleared to be independent with gait and transfers within her room with use of SPC and while wearing appropriate footwear (sneakers). PAIN: No c/o pain BED MOBILITY/TRANSFERS Sit-stand: I Stand-sit: I GAIT Assistive Device: No AD Weight bearing: WBAT B Assist: CGA-SBA Distance: 500'+ Neuro RE-ED: Patient completed walking on various and uneven surfaces with CGA and without assistive device support. Varying surfaces include linoleum, carpet, gravel, grass, pavement, cement. Patient demonstrates careful pacing and gait sequence, as well as appropriate safety awareness. She requires cueing to look ahead versus at her feet. LOB x1 requiring Min A for recovery. THEREX: Patient completed stool scooting forward and backward, 2x 25' each. ASSESSMENT: Patient tolerated session well. She was able to tolerate a progression in gait training without use of assistive device support and with CGA-SBA. She was also able to tolerate the addition of higher level gait training, navigating uneven and varying surfaces with good safety awareness, with LOB x1. At this time, patient demonstrates good safety awareness, as well as the functional ability to perform walking and transfers with use of SPC, independently. She would benefit from continued physical therapy in the form of gait training, strengthening, and balance re-training, upon her return to the community to continue to progress toward returning to baseline level of function. PLAN: Continue with PT's POC TREATMENT CODE/TIME: Session 1: 40 minutes; [id number] x3
--- NOTE | 2019-04-26 13:23 | PGE_ITS ---
Date of Service Date of service: 04/26/19 Time of Service: 13:10 Assessment and Plan (1) Rhabdomyolysis: Current visit: Yes Status: Acute Values initially as high as 13,000 and beyond (unmeasurable >10,000 obetween 04/18/ & 04/20), vastly improved and continues to get better - 688 today. LFTs have continued improve daily as well. Renal function stable and unchanged. At this point patient is medically stable, with 9 days of fluid resuscitation, and CPK in the hundreds. Safe to discontinue IVFs, with continued monitoring of CPK. (2) Aspiration pneumonitis: Current visit: Yes Status: Acute S/p 5 day course of antibiotic therapy with CTx and Metronidazole. Repeat CXR with resolved findings, and no further leukocytosis on labs. Patient remains afebrile. (3) Suicide attempt by drug overdose: Current visit: Yes Status: Acute Will benefit from inpatient psychiatric care - Mental Health consulted and following. Patient is medically stable for transfer to a psychiatric facility. Continue Clinical Patient Safety Observer at this time. (4) Depression: Current visit: Yes Status: Chronic (5) Leg weakness, bilateral: Current visit: Yes Status: Acute Apparent work-up with negative MRI spine - likely on basis of Rhabdomyolysis. Patient has been evaluated by Neurology as well. Patient reports continued improvement. Continue PT. (6) DVT prophylaxis: Current visit: Yes Status: Acute SCDs. Encourage ambulation. (7) Discharge planning issues: Current visit: Yes Status: Acute Medically stable for transfer to Psychiatric Facility. Subjective Interval history since last seen: 33-year-old woman with a past medical history significant for anxiety and depression, admitted from [facility] Emergency Department on 04/17/2019 with a diagnosis of Rhabdomyolysis, Aspiration Pneumonia, and elevated LFTs following a suicide attempt with Morphine Overdose. 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 She presented to the ED via EMS after an apparent suicide attempt via overdose of concentrated liquid morphine. The Patient was initially reported as missing by her family, found facedown in the [place] by [facility] Police. There were no apparent signs of trauma or injury, but with an empty bottle of liquid morphine found nearby. Patient was initially resuscitated by EMS with Narcan with notable improvement in her respiratory rate as well as mental status. Initial evaluation was significant for a minimal leukocytosis, normal kidney function, mild elevation in LFTs, and a CK of over 4000. Urine drug screen was positive for opiates and THC, but otherwise negative. Blood alcohol was undetectable. A CT scan of her head and neck showed no acute intracranial abnormality. She was also noted to be intermittently hypoxic, with imaging showing evidence of pneumonia. She was admitted for evaluation and treatment of her Rhabdo, likely Aspiration Pneumonia, and underlying psychiatric issues with attempted Suicide by overdose. This morning the patient appears well and has no complaints. Her CPK is markedly improved and now in the 600's. She continues to work well with PT. No overnight events reported. Remains afebrile. Exam Narrative Exam Narrative: General: Patient appears comfortable, AAOX3, NAD Psych: Normal mood and affect. Objective Objective Clinical Data: Abnormal lab results 04/26/19 04/26/19 Range/Units 06:10 06:10 BUN 6 L (7-18) mg/dL Glucose 101 H (70-100) mg/dL Creatine Kinase 688 H (26-192) U/L 25-OH Vitamin D Total 13.7 L (30-100) ng/ml Vital Signs Temperature 36.9 C 04/26/19 07:59 Temperature Source Tympanic 04/26/19 07:59 Pulse 83 04/26/19 07:59 Pulse Rhythm Regular 04/26/19 07:50 Pulse 76 04/20/19 16:28 Respiratory Rate 18 04/26/19 07:59 Respiratory Effort 04/26/19 07:50 Respiratory Depth Normal 04/26/19 07:50 Respiratory Pattern Normal 04/26/19 07:50 Blood Pressure 110/72 04/26/19 07:59 Blood Pressure Mean 81 04/20/19 16:28 Blood Pressure Position Supine 04/20/19 00:00 Pulse Oximetry 100 04/26/19 07:59 Respiratory End-tidal CO2 10 04/18/19 09:01 Oxygen Delivery Method Room Air 04/26/19 07:59 Oxygen Flow Rate 0 04/26/19 07:59 End Tidal Co2 32 04/17/19 16:17 Pain Level 4 04/26/19 08:00 Comment 04/25/19 23:49 Intake & Output 04/25/19 04/26/19 04/26/19 23:59 11:59 23:59 Intake Total 2700 / 8523.333 2316.667 / 2316.667 Output Total 3000 / 7900 6350 / 6350 Balance -300 / 623.333 -4033.333 / -4033.333 Weight 80.7 kg Intake: IV 1999.6.667 / 6.667 Oral 700 / 4540 400 / 400 Output: Urine 3000 / 7900 6350 / 6350 Other: Urine Color Pale Pale Yellow Urine Appearance Clear Clear Urine Odor None None Stool Size Moderate Stool Characteristics Soft Formed Voiding Methods Toilet Toilet Laboratory Results WBC 6.80 k/cumm (4.4-10.8) 04/23/19 06:40 RBC 4.42 m/cumm (4.00-5.20) 04/23/19 06:40 Hgb 13.0 g/dL (12.0-15.5) 04/23/19 06:40 Hct 39.2 % (36.0-46.0) 04/23/19 06:40 MCV 88.7 fL (80-95) 04/23/19 06:40 MCH 29.4 pg (27.0-33.0) 04/23/19 06:40 MCHC 33.2 g/dL (32.0-36.0) 04/23/19 06:40 RDW 14.0 % (11.7-14.6) 04/23/19 06:40 Plt Count 207 x1000/uL (130-400) 04/23/19 06:40 MPV 10.2 fL (8.0-11.0) 04/23/19 06:40 Immature Gran % 0.2 04/21/19 06:35 Neutrophils % 51.6 04/21/19 06:35 Lymphocytes % 38.3 04/21/19 06:35 Monocytes % 7.5 04/21/19 06:35 Eosinophils % 2.1 04/21/19 06:35 Basophils % 0.3 04/21/19 06:35 Absolute Neutrophils 3.22 k/cumm (1.2-6.7) 04/21/19 06:35 Absolute Lymphocytes 2.39 k/cumm (1.2-3.4) 04/21/19 06:35 Absolute Monocytes 0.47 k/cumm (0.11-0.7) 04/21/19 06:35 Absolute Eosinophils 0.13 k/cumm (0.0-0.7) 04/21/19 06:35 Absolute Basophils 0.02 k/cumm (0.0-0.2) 04/21/19 06:35 Differential Comment Diff reviewed 04/17/19 16:20 RBC Morphology Normal 04/17/19 16:20 Sample Site Left brachial 04/20/19 07:41 pCO2 21 mmHg (34-47) L 04/20/19 07:41 pO2 109 mmHg (83-108) H 04/20/19 07:41 O2 Saturation 99 % (94-98) H 04/20/19 07:41 ABG pH 7.69 (7.35-7.45) H* 04/20/19 07:41 ABG HCO3 25 mmol/L (22-28) 04/20/19 07:41 ABG Total CO2 21 mmol/L (22-29) L 04/20/19 07:41 ABG Base Excess 4.6 mmol/L (-3-3) H 04/20/19 07:41 VBG pH 7.49 (7.32-7.43) H 04/21/19 06:35 VBG pCO2 27 mm/Hg (34-47) L 04/21/19 06:35 VBG pO2 156 mm/Hg (28-44) H 04/21/19 06:35 VBG HCO3 20 mmol/L (22-28) L 04/21/19 06:35 VBG Total CO2 18 mmol/L (22-29) L 04/21/19 06:35 VBG O2 Saturation 99 % (70-80) H 04/21/19 06:35 VBG Base Excess -3.0 mmol/L (-3-3) 04/21/19 06:35 Oxygen Liter Flow R/a L 04/20/19 07:41 Sodium 143 mmol/L (136-145) 04/26/19 06:10 Potassium 3.9 mmol/L (3.5-5.1) 04/26/19 06:10 Chloride 107 mmol/L (98-107) 04/26/19 06:10 Carbon Dioxide 25.5 mmol/L (21.0-32.0) 04/26/19 06:10 Anion Gap 10.5 mmol/L (3-11) 04/26/19 06:10 BUN 6 mg/dL (7-18) L 04/26/19 06:10 Creatinine 0.66 mg/dL (0.55-1.02) 04/26/19 06:10 Estimated GFR/1.73 m2 >= 60.00 (mL/min/1.73m2) 04/26/19 06:10 Glucose 101 mg/dL (70-100) H 04/26/19 06:10 Calcium 8.9 mg/dL (8.5-10.1) 04/26/19 06:10 Magnesium 1.9 mg/dL (1.8-2.4) 04/21/19 06:35 Total Bilirubin 0.5 mg/dL (0.2-1.0) 04/25/19 06:40 Conjugated Bilirubin 0.12 mg/dL (0.00-0.20) 04/22/19 06:35 AST 92 U/L (15-37) H 04/25/19 06:40 ALT 182 U/L (12-78) H 04/25/19 06:40 Alkaline Phosphatase 41 U/L (46-116) L 04/25/19 06:40 Creatine Kinase 688 U/L (26-192) H 04/26/19 06:10 Total Protein 6.2 g/dL (6.4-8.2) L 04/25/19 06:40 Albumin 3.3 g/dL (3.4-5.0) L 04/25/19 06:40 Vitamin B12 306 pg/mL (193-986) 04/26/19 06:10 25-OH Vitamin D Total 13.7 ng/ml (30-100) L 04/26/19 06:10 TSH 3.21 uIU/mL (0.358-3.74) 04/26/19 06:10 Serum HCG, Qual Negative 04/17/19 16:20 Urine Color Yellow (Yellow) 04/20/19 10:20 Urine Clarity Clear 04/20/19 10:20 Urine pH 8.5 (5-8) H 04/20/19 10:20 Ur Specific [place] 1.015 (1.005-1.025) 04/20/19 10:20 Urine Protein Negative mg/dL (Negative) 04/20/19 10:20 Urine Ketones Negative mg/dL (Negative) 04/20/19 10:20 Urine Blood Trace-intact (Negative) H 04/20/19 10:20 Urine Nitrite Negative (Negative) 04/20/19 10:20 Urine Bilirubin Negative (Negative) 04/20/19 10:20 Urine Urobilinogen 0.2 EU/dL (Up TO 0.2) 04/20/19 10:20 Ur Leukocyte Esterase Negative (Negative) 04/20/19 10:20 Urine RBC 3-5 (0-2) H 04/20/19 10:20 Urine WBC 0-2 HPF (0-5) 04/20/19 10:20 Ur Epithelial Cells Negative HPF (Negative) 04/20/19 10:20 Urine Crystals Negative HPF (Negative) 04/20/19 10:20 Urine Bacteria Rare HPF (Negative) 04/20/19 10:20 Urine Casts Negative LPF (Negative) 04/20/19 10:20 Urine Mucus Trace (Negative) 04/20/19 10:20 Urine Other Rare transitional (Negative) 04/20/19 10:20 Ur Culture Indicated? No 04/20/19 10:20 Urine Myoglobin >5000 mcg/L (<=21) H 04/17/19 17:00 Urine Glucose Negative mg/dL (Negative) 04/20/19 10:20 Salicylates 4.1 mg/dL (2.8-20.0) 04/17/19 16:20 Urine Opiates Screen Positive (Negative) 04/17/19 17:03 Urine Methadone Screen Negative (Negative) 04/17/19 17:03 Acetaminophen < 2 ug/mL (10-30) L 04/17/19 16:20 Ur Barbiturates Screen Negative (Negative) 04/17/19 17:03 Ur Tricyclics Screen Negative (Negative) 04/17/19 17:03 Ur Amphetamines Screen Negative (Negative) 04/17/19 17:03 U Benzodiazepines Scrn Negative (Negative) 04/17/19 17:03 Urine Cocaine Screen Negative (Negative) 04/17/19 17:03 Ur THC Screen Positive (Negative) 04/17/19 17:03 Ethyl Alcohol < 3.0 mg/dL (<3) 04/17/19 16:20 A.phagocytophil DNA PCR Negative (Negative) 04/19/19 16:18 B. divergens/MO-1 PCR Negative (Negative) 04/19/19 16:18 Babesia duncani (PCR) Negative (Negative) 04/19/19 16:18 Babesia microti DNA PCR Negative (Negative) 04/19/19 16:18 Borrelia (PCR) Negative (Negative) 04/19/19 16:18 Lyme Disease Antibody Negative 04/19/19 16:18 E.chaffeensis DNA (PCR) Negative (Negative) 04/19/19 16:18 E.ewingii/canis DNA PCR Negative (Negative) 04/19/19 16:18 E. muris-like DNA (PCR) Negative (Negative) 04/19/19 16:18
--- NOTE | 2019-04-26 15:11 | CMSP_ITS ---
Care Management Safety Plan Payal remains appropriate in interaction. She was permitted to ambulate outside with PT this morning to be evaluated on different walking surfaces, and per reports she did quite well. Payal engaged with the Corky ARANA from [facility] and this literary writer. Discharge planning was reviewed as Payal has been medically cleared for discharge. Vanessa and Jacob are reviewing Payal for admission. SAFETY PLAN: 1. Will remain on suicide precautions. May wear her own street clothes as long as there are no strings, cords etc. She may wear sneakers from home (without laces) to participate in physical therapy. 2. Permitted to ambulate outside of room with [facility] staff escort at RN discretion. 3. May have paper cups, plates, finger foods as well as a metal spoon with which to eat meals. Utensil will be retrieved by staff at the end of the meal. 4. Follow [facility] Management of the Admitted Behavioral Health Patient policy. 5. Shower privileges (with CPSO in attendance). CPSO/CIVIL ATTORNEY approved to provide shaving of armpits and legs (as patient has advocated for) at patient and RN discretion. 6. May have personal phone and php web developer, insulated mug, hairbrush, toothbrush and toothpaste, deodorant, tampons (to be kept at desk and dispensed individually as needed).May have and use an emery board. 7. Visitors permitted at nursing discretion. 8. Female care providers should be assigned when available. Patient is currently voluntarily at [facility] and seeking inpatient admission when a bed becomes available. [facility] Frontline Hobbing Machine Operator will continue seeking placement. Please contact the Steward/Stewardess Dining Room Neon Glass Blower ([phone]) and [facility] Hobbing Machine Operator ([phone]) for any needed changes in the Safety Plan. Safety plan has been provided to interdepartmental care team.
[2019-04-26] MEDS: traMADol 50 MG TAB PO ×2 (15:29→21:50)
[2019-04-26 15:41] VITALS: BP 126/77; PULSE 82; RESP 18; TEMP 37.2; O2SAT 99
[2019-04-26] MEDS: Melatonin 3 MG TAB PO (21:50)
[2019-04-26 22:56] VITALS: BP 109/70; PULSE 65; RESP 17; TEMP 36.5; O2SAT 99
[2019-04-27] MEDS: Acetaminophen 325 MG TAB 650 MG PO ×3 (05:29→20:14)
[2019-04-27] MEDS: LORazepam 0.5 MG TAB PO ×2 (06:37→15:33)
[2019-04-27 07:14] LABS: ALT 133 U/L (12-78); AST 43 U/L (15-37); Albumin 3.7 g/dL (3.4-5.0); Alkaline Phosphatase 44 U/L (46-116); Anion Gap 9.9 mmol/L (3-11); BUN 6 mg/dL (7-18); Bilirubin, Total 0.7 mg/dL (0.2-1.0); CO2 26.1 mmol/L (21.0-32.0); CREATININE 0.77 mg/dL (0.55-1.02); Calcium 9.2 mg/dL (8.5-10.1); Chloride 103 mmol/L (98-107); Creatine Kinase 377 U/L (26-192); Glucose 101 mg/dL (70-100); Potassium 4.1 mmol/L (3.5-5.1); Sodium 139 mmol/L (136-145); Total Protein 6.9 g/dL (6.4-8.2)
[2019-04-27 07:15] VITALS: BP 132/91; PULSE 86; RESP 16; TEMP 37.2; O2SAT 100
[2019-04-27] MEDS: Potassium Chloride 20 MEQ TABCR 40 MEQ PO (07:43)
[2019-04-27] MEDS: Pantoprazole 40 MG TABCR PO (07:43)
[2019-04-27] MEDS: Lactobacillus Acidophilus CAP 1 CAP PO ×3 (07:43→20:14)
--- NOTE | 2019-04-27 12:21 | PTTR_ITS ---
Date of service: 04/27/19 Time of Service: 12:17 PT Notes Inpatient Physical Therapy Treatment Note [facility] Date: 04/27/19 PRECAUTIONS: Suicidal Ideation, Fall SUBJECTIVE: Payal states that she felt sore and tired following yesterday's PT session. OBJECTIVE: Payal demonstrates appropriate physical ability and safety awareness to be cleared to be independent with gait and transfers within her room with use of SPC and while wearing appropriate footwear (sneakers). PAIN: No c/o pain BED MOBILITY/TRANSFERS Sit-stand: I Stand-sit: I GAIT Assistive Device: SPC Weight bearing: WBAT B Assist: SBA Distance: 500'+ Neuro RE-ED: Patient completed walking on various and uneven surfaces with CGA- SBA, with SPC support. Varying surfaces include linoleum, carpet, gravel, grass, pavement, cement. Patient tolerated the addition of descending a flight of stairs, as well as navigating up and downhill surfaces at varying grades. Patient demonstrates careful pacing and gait sequence, as well as appropriate safety awareness. She requires cueing to look ahead versus at her feet. ASSESSMENT: Patient tolerated session well. She was able to tolerate a progression in gait training with SPC support and with CGA-SBA. She was also able to tolerate the addition of higher level gait training, navigating uneven and varying surfaces at varying grades with good safety awareness, without LOB. At this time, patient demonstrates good safety awareness, as well as the functional ability to perform walking and transfers with use of SPC, independently. She would benefit from continued physical therapy in the form of gait training, strengthening, and balance re-training, upon her return to the community to continue to progress toward returning to baseline level of function. PLAN: Continue with PT's POC TREATMENT CODE/TIME: 30 minutes; 26142 x2
--- NOTE | 2019-04-27 13:36 | DSE_ITS ---
Date of service: 04/27/19 Time of Service: :23 DS: Diagnosis Discharge Diagnosis (1) Rhabdomyolysis: Status: Acute (2) Aspiration pneumonitis: Status: Acute (3) Suicide attempt by drug overdose: Status: Acute (4) Depression: Status: Chronic (5) Leg weakness, bilateral: Status: Acute Discharge Plan Disposition Patient Disposition: [facility] Condition: Improving Discharge Details Reason For Visit: INTENTIONAL OPIATE OVERDOSE Admit Date/Time: 04/17/19 18:25 Admit Provider: Galileo Moore Attending Provider: Galileo Moore Primary Care Provider: Fanny Willson Hospital Course Hospital Course: Chief Complaint: Suicide Attempt HPI: 33-year-old woman with a past medical history significant for anxiety and depression, admitted from [facility] Emergency Department on 04/17/2019 with a diagnosis of Rhabdomyolysis, Aspiration Pneumonia, and elevated LFTs following a suicide attempt with Morphine Overdose. 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 She presented to the ED via EMS after an apparent suicide attempt via overdose of concentrated liquid morphine. The Patient was initially reported as missing by her family, found facedown in the [facility] by [facility]. There were no apparent signs of trauma or injury, but with an empty bottle of liquid morphine found nearby. Patient was initially resuscitated by EMS with Narcan with notable improvement in her respiratory rate as well as mental status. Initial evaluation was significant for a minimal leukocytosis, normal kidney function, mild elevation in LFTs, and a CK of over 4000. Urine drug screen was positive for opiates and THC, but otherwise negative. Blood alcohol was undetectable. A CT scan of her head and neck showed no acute intracranial abnormality. She was also noted to be intermittently hypoxic, with imaging showing evidence of pneumonia. She was admitted for evaluation and treatment of her Rhabdo, likely Aspiration Pneumonia, and underlying psychiatric issues with attempted Suicide by overdose. This morning the patient appears well and has no complaints. Her CPK is markedly improved and now in the 300's. Her LFTs continue to improve as well. She continues to work well with PT, and has been deemed safe for transfer. Ms. Subramanian was accepted at the [facility][Note 3] for continuation of her care from a psychiatric standpoint. No overnight events reported. Remains afebrile. Hospital Course: (1) Rhabdomyolysis: Values initially as high as 13,000 and beyond (unmeasurable >10,000 between 04/18/ & 04/20), vastly improved and continues to decrease despite discontinuation of IVFs yesterday. Current CPK 688 --> 377 today and nearly normalized. LFTs have continued improve daily as well, with ALT 290 -->133 and AST 513 -->43 . Renal function stable and unchanged. At this point patient is medically stable, with 9 days of fluid resuscitation, and CPK in the hundreds and continues to improve despite discontinuation of IVFs. Safe to transfer. Recommend repeat CPK and LFTs in 3-5 days to ensure normalization. (2) Aspiration pneumonitis: S/p 5 day course of antibiotic therapy with CTx and Metronidazole. Repeat CXR with resolved findings, and no further leukocytosis on labs. Patient remains afebrile. (3) Suicide attempt by drug overdose: Will benefit from inpatient psychiatric care - Accepted for transfer to [facility][Note 3]. While hospitalized Ms. Subramanian was followed by Mental Health and observed by a Clinical Patient Safety Observer. (4) Depression: Noted - as above. (5) Leg weakness, bilateral: Apparent work-up with negative MRI spine - likely on basis of Rhabdomyolysis based on evaluation by Neurology as well. Patient reports continued improvement. May benefit from continued PT once she returns home, and has been deemed safe for transfer by Physical Therapy. (6)Disposition: Medically stable for transfer to inpatient Psychiatric Facility. (7) Vitamin D Deficiency: Levels checked on 04/26 and markedly low at 13.7. Initiated on therapeutic doses at 50,000 Units Qweek for 8 weeks, with recommendations for repeat levels at that time and either continuation of therapeutic dose vs. change to supplemental dose pending results at that time. Home Meds and New Rx's Prescriptions: New diphenhydramine HCl 25 mg Capsule 25 mg PO HS PRN PRNQty: 0 RF: 0 melatonin 3 mg Tablet Extended Release 3 mg PO HS Qty: 0 RF: 0 cholecalciferol (vitamin D3) 50,000 unit capsule 50,000 unit PO QWEEK Qty: 8 RF: 0 Continued fluocinolone 0.025 % ointment 1 applic Topical BID PRN (Reason: eczema) Qty: 60 RF: 5 sertraline 100 mg tablet 150 mg PO DAILY Qty: 45 RF: 3 clonazepam 0.5 mg tablet 0.5 mg PO BID PRN (Reason: anxiety) Qty: 20 RF: 0 acetaminophen 500 MG tablet 1 tab PO BID PRNRF: 0 ibuprofen 200 MG capsule 400 mg PO Q4H PRN RF: 0 Discharge Instructions Activity:: No strenuous activity Equipment/Supplies:: Cane Diet:: As Tolerated Discharge Orders Discharge Orders: Discharge Order (Routine); Ordered 04/27/19 Ordered By: Rupesh Quintanilla Other Ambulatory Orders: Creatine Kinase (Routine) Location: Determined by Patient Ordered By: Rupesh Quintanilla Comprehensive Metabolic Panel (Routine) Location: Determined by Patient Ordered By: Rupesh Quintanilla DS: Data Vitals/I&O Vitals and I&O: Vital Signs Temperature 37.2 C 04/27/19 07:15 Temperature Source Tympanic 04/27/19 07:15 Pulse 86 04/27/19 07:15 Pulse Rhythm Regular 04/27/19 07:46 Pulse 76 04/20/19 16:28 Respiratory Rate 16 04/27/19 07:15 Respiratory Effort Non-Labored 04/27/19 07:46 Respiratory Depth Normal 04/27/19 07:46 Respiratory Pattern Normal 04/26/19 19:45 Blood Pressure 132/91 H 04/27/19 07:15 Blood Pressure Mean 81 04/20/19 16:28 Blood Pressure Position Supine 04/20/19 00:00 Pulse Oximetry 100 04/27/19 07:15 Respiratory End-tidal CO2 10 04/18/19 09:01 Oxygen Delivery Method Room Air 04/27/19 07:15 Oxygen Flow Rate 0 04/27/19 07:15 End Tidal Co2 32 04/17/19 16:17 Pain Level 7 04/27/19 11:35 Comment 04/26/19 15:41 Intake & Output 04/26/19 04/27/19 04/27/19 23:59 11:59 23:59 Intake Total 450 / 3503.334 1700 / 1700 Output Total 2650 / 9000 2300 / 2300 Balance -2200 / -5496.666 -600 / -600 Weight 78.7 kg Intake: Oral 450 / 850 1700 / 1700 Output: Urine 2650 / 9000 2300 / 2300 Other: Urine Color Pale Yellow Yellow Urine Appearance Clear Clear Urine Odor None None Comment There was urine in the bathroom, pt states she voided around 6:30 pm. Stool Size Moderate Stool Characteristics Soft Formed Brown Voiding Methods Toilet Toilet Completed studies during hospitalization [Text1]: EXAM: 04/17/2019 CT Head Without Contrast EXAM DATE/TIME: 04/17/2019 4:27 PM CLINICAL HISTORY: 33 years old, female; Signs and symptoms; Other: PT found unconscious; Altered/overdose TECHNIQUE: Imaging protocol: Axial computed tomography images of the head without contrast. Coronal and sagittal reformatted images were created and reviewed. Radiation optimization: All CT scans at this facility use at least one of these dose optimization techniques: automated exposure control; mA and/or kV adjustment per patient size (includes targeted exams where dose is matched to clinical indication); or iterative reconstruction. COMPARISON: No relevant prior studies available. FINDINGS: Brain: Normal. No hemorrhage. Unremarkable white matter. No mass effect. Ventricles: Normal. No ventriculomegaly. Bones/joints: Unremarkable. No acute fracture. Sinuses: Visualized sinuses are unremarkable. No fluid levels. Mastoid air cells: Visualized mastoid air cells are well aerated. No mastoid effusion. Orbits: Unremarkable. Soft tissues: Unremarkable. IMPRESSION: No acute intracranial abnormality. -------- Exam(s) 04/17/2019 a RAD:XR portable chest AP SYMPTOM/DIAGNOSIS: COUGH, POST OVERDOSE PORTABLE AP CHEST at 621 pm: Heart size and pulmonary vasculature are within normal limits. There is poor inspiration. There are increased lung markings in the perihilar regions, particularly on the left. No effusions or pneumothoraces are identified. The bones are intact. IMPRESSION: Left perihilar infiltrate. This may represent pneumonia. Other etiologies including pulmonary edema or hemorrhage cannot be excluded. --------- Exam(s) 04/18/2019 a RAD:XR portable chest AP SYMPTOM/DIAGNOSIS: ASPIRATION PNEUMONIA, S/P DRUG OVERDOSE PORTABLE AP CHEST at 544 am: Comparison is made with the day prior. Heart size and pulmonary vasculature are within normal limits. No infiltrates, effusions or pneumothoraces are identified. The bones appear intact. IMPRESSION: No acute pulmonary process. --------- Exam(s) 04/18 a MRI:MR lumbar spine wo a MRI:MR thoracic spine wo SYMPTOM/DIAGNOSIS: BILATERAL LEG WEAKNESS THORACIC SPINE MRI: A noncontrast examination of the thoracic spine was performed. There is normal signal in the spinal cord. There is normal signal in the bone marrow and intervertebral discs. No focal disc herniation, central spinal canal or neural foraminal stenosis is seen in the thoracic spine. IMPRESSION: Normal MRI of the thoracic spine. No evidence of spinal cord abnormality. LUMBAR SPINE MRI: Routine noncontrast examination was performed. The distal aspect of the cord shows normal signal. There is normal signal in the vertebral bodies and intervertebral discs. No focal disc herniation, central spinal canal or neural foraminal stenosis is seen. IMPRESSION: Negative MRI of the lumbar spine. Normal cord signal. -------- Exam(s) 04/23/2019 a RAD:XR chest 2V PA & lateral SYMPTOM/DIAGNOSIS: COUGH PA AND LATERAL CHEST: The heart is normal in size. The lungs are clear. The mediastinal structures and pleura appear intact. CONCLUSION: Normal chest. No evidence of acute cardiopulmonary disease. Labs on day of discharge: Labs from last 24 hours 04/27/19 06:40 Sodium 139 Potassium 4.1 Chloride 103 Carbon Dioxide 26.1 Anion Gap 9.9 BUN 6 L Creatinine 0.77 Estimated GFR/1.73 m2 >= 60.00 Glucose 101 H Calcium 9.2 Total Bilirubin 0.7 AST 43 H ALT 133 H Alkaline Phosphatase 44 L Creatine Kinase 377 H Total Protein 6.9 Albumin 3.7 PFSH Medical History Depression IBS (irritable bowel syndrome) Surgical History CERVICAL BIOPSY (04/29/13) Cervical Procedure (02/21/13) Tonsillectomy and adenoidectomy Family History Sister Hypothyroid Depression Mother No problems noted. 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
--- NOTE | 2019-04-27 13:42 | PDOC.CMPRO ---
Care Management Progress Note CM provided coordination of DOUGLAS. Dr. Quintanilla spoke via phone to Shannon Miller APRN (NPI #[id number]) of [facility] (NPI#[id number])@[email or web address]. SHAHID called [facility] ( ) for prior authorization, providing TIN and NPI numbers for facility and provider. SHAHID provided ongoing case review with [facility] P#[phone] (Candace PORTILLO, Ashlee RN) and [facility] P#[phone] (Jurgen Reynolds) beginning yesterday. CM coordinated transport through [facility] security for 1800 arrival time. CM received notification from [facility] that they needed to defer the bed offer until tomorrow due to staffing, census and compliance. Ebony reported that the Executive Officer Special Warfare Team had made the determination due to not having the staff required to provide an admission work up for Payal in the alloted time. CM notified CHARLENE Infante, Nursing Assembler Filters and Payal. Safety plan will remain in place until discharge.
[2019-04-27] MEDS: traMADol 50 MG TAB PO (15:33)
--- NOTE | 2019-04-27 15:58 | CMPROGNOTE_ITS ---
Care Management Progress Note CM provided coordination of DOUGLAS. Dr. Quintanilla spoke via phone to Shannon Miller APRN (NPI #[id number]) of [facility] (NPI#[id number])@[id number]. SHAHID called [facility] ( ) for prior authorization, providing TIN and NPI numbers for facility and provider. SHAHID provided ongoing case review with [facility] P#[phone] (Candace PORTILLO, Ashlee RN) and [facility] P#[phone] (Jurgen Reynolds) beginning yesterday. CM coordinated transport through [facility] security for 1800 arrival time. CM received notification from [facility] that they needed to defer the bed offer until tomorrow due to staffing, census and compliance. Ebony reported that the Aviation Safety Technician had made the determination due to not having the staff required to provide an admission work up for Payal in the alloted time. CM notified CHARLENE Infante, Nursing Applications Manager and Payal. Safety plan will remain in place until discharge.
[2019-04-27 18:54] VITALS: BP 119/73; PULSE 87; RESP 18; TEMP 36.8; O2SAT 100
[2019-04-27] MEDS: Melatonin 3 MG TAB PO (21:03)
[2019-04-28] MEDS: traMADol 50 MG TAB PO ×2 (03:50→09:32)
[2019-04-28 03:56] VITALS: BP 123/81; PULSE 63; RESP 14; TEMP 36.6; O2SAT 100
[2019-04-28] MEDS: Acetaminophen 325 MG TAB 650 MG PO (06:16)
[2019-04-28 08:10] VITALS: BP 122/81; PULSE 70; RESP 18; TEMP 36.9; O2SAT 97
--- NOTE | 2019-04-28 08:28 | W.PM.PROGNOT ---
Date of Service Date of service: 04/28/19 Time of Service: 08:28 Subjective Interval history since last seen: Patient is being discharged to the [facility]. Ms. Subramanian was admitted following a suicide attempt with an intentional overdose of Morphine - found to have significant Rhabdo and some elevation in her LFTs. Her condition is markedly improved. She was accepted and discharged to the [facility] yesterday (04/27/2019) - however, due to time needed for intake at the psychiatric facility, the decision was made by [facility] to delay her discharge until this morning. For an in-depth review of her hospitalization please refer to the discharge summary from the afternoon of 04/27/2019. Objective Objective Clinical Data: Vital Signs Temperature 36.6 C 04/28/19 03:56 Temperature Source Tympanic 04/28/19 03:56 Pulse 63 04/28/19 03:56 Pulse Rhythm Regular 04/27/19 21:26 Pulse 76 04/20/19 16:28 Respiratory Rate 14 04/28/19 03:56 Respiratory Effort Non-Labored 04/27/19 21:26 Respiratory Depth Normal 04/27/19 21:26 Respiratory Pattern Normal 04/26/19 19:45 Blood Pressure 123/81 04/28/19 03:56 Blood Pressure Mean 81 04/20/19 16:28 Blood Pressure Position Supine 04/20/19 00:00 Pulse Oximetry 100 04/28/19 03:56 Respiratory End-tidal CO2 10 04/18/19 09:01 Oxygen Delivery Method Room Air 04/28/19 03:56 Oxygen Flow Rate 0 04/28/19 03:56 End Tidal Co2 32 04/17/19 16:17 Pain Level 7 04/28/19 06:16 Comment 04/26/19 15:41 Intake & Output 04/27/19 04/27/19 04/28/19 11:59 23:59 11:59 Intake Total 2160 / 3640 1480 / 3640 Output Total 2300 / 4100 1800 / 4100 1700 / 1700 Balance -140 / -460 -320 / -460 -1700 / -1700 Weight 78.7 kg 78.1 kg Intake: Oral 2160 / 3640 1480 / 3640 Output: Urine 2300 / 4100 1800 / 4100 1700 / 1700 Other: Urine Color Yellow Yellow Yellow Urine Appearance Clear Clear Clear Urine Odor None Normal Normal Stool Size Moderate Large Stool Characteristics Soft Soft Formed Formed Brown Voiding Methods Toilet Toilet Toilet Laboratory Results WBC 6.80 k/cumm (4.4-10.8) 04/23/19 06:40 RBC 4.42 m/cumm (4.00-5.20) 04/23/19 06:40 Hgb 13.0 g/dL (12.0-15.5) 04/23/19 06:40 Hct 39.2 % (36.0-46.0) 04/23/19 06:40 MCV 88.7 fL (80-95) 04/23/19 06:40 MCH 29.4 pg (27.0-33.0) 04/23/19 06:40 MCHC 33.2 g/dL (32.0-36.0) 04/23/19 06:40 RDW 14.0 % (11.7-14.6) 04/23/19 06:40 Plt Count 207 x1000/uL (130-400) 04/23/19 06:40 MPV 10.2 fL (8.0-11.0) 04/23/19 06:40 Immature Gran % 0.2 04/21/19 06:35 Neutrophils % 51.6 04/21/19 06:35 Lymphocytes % 38.3 04/21/19 06:35 Monocytes % 7.5 04/21/19 06:35 Eosinophils % 2.1 04/21/19 06:35 Basophils % 0.3 04/21/19 06:35 Absolute Neutrophils 3.22 k/cumm (1.2-6.7) 04/21/19 06:35 Absolute Lymphocytes 2.39 k/cumm (1.2-3.4) 04/21/19 06:35 Absolute Monocytes 0.47 k/cumm (0.11-0.7) 04/21/19 06:35 Absolute Eosinophils 0.13 k/cumm (0.0-0.7) 04/21/19 06:35 Absolute Basophils 0.02 k/cumm (0.0-0.2) 04/21/19 06:35 Differential Comment Diff reviewed 04/17/19 16:20 RBC Morphology Normal 04/17/19 16:20 Sample Site Left brachial 04/20/19 07:41 pCO2 21 mmHg (34-47) L 04/20/19 07:41 pO2 109 mmHg (83-108) H 04/20/19 07:41 O2 Saturation 99 % (94-98) H 04/20/19 07:41 ABG pH 7.69 (7.35-7.45) H* 04/20/19 07:41 ABG HCO3 25 mmol/L (22-28) 04/20/19 07:41 ABG Total CO2 21 mmol/L (22-29) L 04/20/19 07:41 ABG Base Excess 4.6 mmol/L (-3-3) H 04/20/19 07:41 VBG pH 7.49 (7.32-7.43) H 04/21/19 06:35 VBG pCO2 27 mm/Hg (34-47) L 04/21/19 06:35 VBG pO2 156 mm/Hg (28-44) H 04/21/19 06:35 VBG HCO3 20 mmol/L (22-28) L 04/21/19 06:35 VBG Total CO2 18 mmol/L (22-29) L 04/21/19 06:35 VBG O2 Saturation 99 % (70-80) H 04/21/19 06:35 VBG Base Excess -3.0 mmol/L (-3-3) 04/21/19 06:35 Oxygen Liter Flow R/a L 04/20/19 07:41 Sodium 139 mmol/L (136-145) 04/27/19 06:40 Potassium 4.1 mmol/L (3.5-5.1) 04/27/19 06:40 Chloride 103 mmol/L (98-107) 04/27/19 06:40 Carbon Dioxide 26.1 mmol/L (21.0-32.0) 04/27/19 06:40 Anion Gap 9.9 mmol/L (3-11) 04/27/19 06:40 BUN 6 mg/dL (7-18) L 04/27/19 06:40 Creatinine 0.77 mg/dL (0.55-1.02) 04/27/19 06:40 Estimated GFR/1.73 m2 >= 60.00 (mL/min/1.73m2) 04/27/19 06:40 Glucose 101 mg/dL (70-100) H 04/27/19 06:40 Calcium 9.2 mg/dL (8.5-10.1) 04/27/19 06:40 Magnesium 1.9 mg/dL (1.8-2.4) 04/21/19 06:35 Total Bilirubin 0.7 mg/dL (0.2-1.0) 04/27/19 06:40 Conjugated Bilirubin 0.12 mg/dL (0.00-0.20) 04/22/19 06:35 AST 43 U/L (15-37) H 04/27/19 06:40 ALT 133 U/L (12-78) H 04/27/19 06:40 Alkaline Phosphatase 44 U/L (46-116) L 04/27/19 06:40 Creatine Kinase 377 U/L (26-192) H 04/27/19 06:40 Total Protein 6.9 g/dL (6.4-8.2) 04/27/19 06:40 Albumin 3.7 g/dL (3.4-5.0) 04/27/19 06:40 Vitamin B12 306 pg/mL (193-986) 04/26/19 06:10 25-OH Vitamin D Total 13.7 ng/ml (30-100) L 04/26/19 06:10 TSH 3.21 uIU/mL (0.358-3.74) 04/26/19 06:10 Serum HCG, Qual Negative 04/17/19 16:20 Urine Color Yellow (Yellow) 04/20/19 10:20 Urine Clarity Clear 04/20/19 10:20 Urine pH 8.5 (5-8) H 04/20/19 10:20 Ur Specific [place] 1.015 (1.005-1.025) 04/20/19 10:20 Urine Protein Negative mg/dL (Negative) 04/20/19 10:20 Urine Ketones Negative mg/dL (Negative) 04/20/19 10:20 Urine Blood Trace-intact (Negative) H 04/20/19 10:20 Urine Nitrite Negative (Negative) 04/20/19 10:20 Urine Bilirubin Negative (Negative) 04/20/19 10:20 Urine Urobilinogen 0.2 EU/dL (Up TO 0.2) 04/20/19 10:20 Ur Leukocyte Esterase Negative (Negative) 04/20/19 10:20 Urine RBC 3-5 (0-2) H 04/20/19 10:20 Urine WBC 0-2 HPF (0-5) 04/20/19 10:20 Ur Epithelial Cells Negative HPF (Negative) 04/20/19 10:20 Urine Crystals Negative HPF (Negative) 04/20/19 10:20 Urine Bacteria Rare HPF (Negative) 04/20/19 10:20 Urine Casts Negative LPF (Negative) 04/20/19 10:20 Urine Mucus Trace (Negative) 04/20/19 10:20 Urine Other Rare transitional (Negative) 04/20/19 10:20 Ur Culture Indicated? No 04/20/19 10:20 Urine Myoglobin >5000 mcg/L (<=21) H 04/17/19 17:00 Urine Glucose Negative mg/dL (Negative) 04/20/19 10:20 Salicylates 4.1 mg/dL (2.8-20.0) 04/17/19 16:20 Urine Opiates Screen Positive (Negative) 04/17/19 17:03 Urine Methadone Screen Negative (Negative) 04/17/19 17:03 Acetaminophen < 2 ug/mL (10-30) L 04/17/19 16:20 Ur Barbiturates Screen Negative (Negative) 04/17/19 17:03 Ur Tricyclics Screen Negative (Negative) 04/17/19 17:03 Ur Amphetamines Screen Negative (Negative) 04/17/19 17:03 U Benzodiazepines Scrn Negative (Negative) 04/17/19 17:03 Urine Cocaine Screen Negative (Negative) 04/17/19 17:03 Ur THC Screen Positive (Negative) 04/17/19 17:03 Ethyl Alcohol < 3.0 mg/dL (<3) 04/17/19 16:20 A.phagocytophil DNA PCR Negative (Negative) 04/19/19 16:18 B. divergens/MO-1 PCR Negative (Negative) 04/19/19 16:18 Babesia duncani (PCR) Negative (Negative) 04/19/19 16:18 Babesia microti DNA PCR Negative (Negative) 04/19/19 16:18 Borrelia (PCR) Negative (Negative) 04/19/19 16:18 Lyme Disease Antibody Negative 04/19/19 16:18 E.chaffeensis DNA (PCR) Negative (Negative) 04/19/19 16:18 E.ewingii/canis DNA PCR Negative (Negative) 04/19/19 16:18 E. muris-like DNA (PCR) Negative (Negative) 04/19/19 16:18
[2019-04-28] MEDS: Pantoprazole 40 MG TABCR PO (08:49)
[2019-04-28] MEDS: Potassium Chloride 20 MEQ TABCR 40 MEQ PO (08:49)
[2019-04-28] MEDS: Lactobacillus Acidophilus CAP 1 CAP PO (08:49)
[2019-04-28] MEDS: LORazepam 0.5 MG TAB PO (09:32)
--- NOTE | 2019-04-28 10:27 | PDOC.CMDIS ---
LACE Index Scoring Tool - Questions: Length of Stay (in days): 7 - 13 Acuity (Admit via E.D.?): Yes E.D. Visits: 1 - Answers: Total Score: 9 Risk of Readmission: Low Risk Care Management Discharge Reason for Hospitalization: Suicide attempt by drug overdose Discharge Plan: Payal will discharge to [facility] for psychiatric stabilization. Due to lack of availability for Mine Engineer transport, Payal will transfer via [facility], coordinated by this sheet writer. SHAHID completed prior auth with [employer] and provided authorization information to [facility]. Patient/Family Education Needs: Review of discharge instructions, discuss Ask Me Three'. Services Needed at Discharge: Psychiatric Facility ([facility]), Transportation (EMS coordination for secure transport)
--- NOTE | 2019-04-28 16:54 | CMDISCH_ITS ---
LACE Index Scoring Tool - Questions: Length of Stay (in days): 7 - 13 Acuity (Admit via E.D.?): Yes E.D. Visits: 1 - Answers: Total Score: 9 Risk of Readmission: Low Risk Care Management Discharge Reason for Hospitalization: Suicide attempt by drug overdose Discharge Plan: Payal will discharge to [facility] for psychiatric stabilization. Due to lack of availability for Organic Preparation Technician transport, Payal will transfer via [facility], coordinated by this staff writer. SHAHID completed prior auth with [employer] and provided authorization information to [place]. Patient/Family Education Needs: Review of discharge instructions, discuss Ask Me Three'. Services Needed at Discharge: Psychiatric Facility ([facility]), Transportation (EMS coordination for secure transport)
--- NOTE | 2019-04-28 17:01 | INDS_ITS ---
Date of service: 04/28/19 Time of Service: 16:55 PT Notes Inpatient Physical Therapy Discharge Summary Dates: 04/28/2019 Dates of Service: 04/19/2019 through 04/28/2019 This is a clinical summary of care provided on the duration of dates listed above. No charge was made in the completion of this documentation. Referring Doctor: Vera Gutiérrez MD PT Orders: PT CONSULT: eval/treat for management of LE weakness Precautions: Standard, in the presence of severe depression and SI. Patient Profile/Admitting Diagnosis: 33-year-old female, suffering from severe depression, admitted for medical management following intentional drug overdose. She has developed bilateral (right greater than left) lower extremity weakness and motor control loss, from influence of drug overdose, compared to premorbid level of independent function. 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 Her significant other also has a client that he takes care of. She is able to reside on the primary level of the home, which does have a bedroom and bathroom, with 2-3 steps to enter. Otherwise, her normal mobility around the home would involve 2 flights of stairs. Both sets of stairs have a rail. Current Functional Limitations: Dependent on steady lift with static standing, and to assist with sit <> stand transfer. Only tolerating short-term static standing, due to right lower extremity weakness. Requires use of upper ext remity to assist with movement of the right LE in/out of bed. Equipment Owned/DME: None Subjective: NT. Objective: General Observation: NT Mental Status:NT Pain: NT ROM: Right Upper Extremity: WNL Left Upper Extremity: WNL Right Lower Extremity: WNL, passive. Active limited to -10 degrees dorsiflexion, 0 degrees inversion, 5 degrees eversion of right ankle. Right knee 0 to 90 degrees. Left ankle 0 degrees dorsiflexion, inversion/eversion WNL, left knee mobility WNL. Active movements limited due to motor control deficit. Left Lower Extremity: WNL, passive Strength: Right Upper Extremity: Grossly 4+/5 Left Upper Extremity: Grossly 4+/5 Right Lower Extremity: Hip flexion 3/5, knee extension 4-/5, knee flexion 4-/5, ankle dorsiflexion 2/5, ankle plantarflexion 4+/5, ankle inversion 1/5, ankle eversion 1/5, hip abduction 3+/5, hip adduction 3+/5, able to complete bridge with good control. Left Lower Extremity: Hip flexion 4/5, knee extension and flexion 5/5, ankle dorsiflexion 4/5, ankle inversion/eversion 4/5, ankle plantarflexion 5/5, hip AB/adduction 4/5 Sensation: Intact to light and touch and pressure B LE. Bed Mobility/Transfers: Rolling independent Supine to sit independent Sit to supine independent Sit to stand independent Stand to sit independent Bed to chair independent Chair to bed independent Gait: As of 04/26/2019 per AIR DEODORIZER SERVICER notes patient has been able to tolerate level surface ambulation of 500 feet without an assistive device with weightbearing as tolerated on bilateral lower extremities requiring only SBA to CGA with only one episode of loss of balance requiring minimal assist only for recovery. Patient is able to tolerate 26 inch steps while holding onto one rail using step to and step over gait pattern requiring SBA. Patient is able to walk on various surfaces without assistive device on grass, gravel, uneven carpet, pavement, tile with CGA. Balance: Static Sitting: Good Dynamic Sitting: Good Static Standing: Fair Dynamic Standing: Fair Assessment: Patient has demonstrated significant improvement in terms of strength, balance, activity tolerance, and overall mobility level. Goals: Goals X1 week 1. Supine-Sit independent MET 2. Sit-Supine independent MET 3. Sit-Stand at rolling walker, contact-guard x1 MET 4. Stand-Sit with walker, contact-guard x1 MET 5. Bed-Chair with walker, contact-guard x1, min assist 1 MET 6. Chair-Bed with walker, contact-guard x1, min assist 1 MEt 7. Gait 20 feet with rolling walker, contact-guard x1, min assist 1 MET 8. Stairs 2 steps, min assist x1, contact-guard x1 MET 9. Independent with home exercise program MEt 10. Balance good sitting dynamic and static, standing dynamic and static fair. NOT MET DISCHARGE RECOMMENDATIONS: Patient transitions to an inpatient psychiatric facility as of today in [facility] for psychiatric stabilization. Will recommend continued physical therapy services in order to achieve premorbid independent level without the need for an assistive ambulatory device nor adaptive equipment. TREATMENT CODE/TIME: NC. Thank you very much for this referral. Elinor Guillermo PT, DPT, CLT [facility]
== END 2019-04-28 10:23 | disposition short-term general hospital (02) | DRG 917 ==
LOC: ER 18:44 → ICU 20:02 → MS 04-27 13:36 → ICU 04-29 09:08
PROVIDERS: Internal Medicine; Nurse Practitioner; Admitting Provider Internal Medicine; Emergency Provider Student in an Organized Health Care Education/Training Program; PCP Nurse Practitioner; Visit Provider Internal Medicine
DX: T40.2X2A Poisoning by other opioids, intentional self-harm, initial encounter (principal); J69.0 Pneumonitis due to inhalation of food and vomit; M62.82 Rhabdomyolysis; R45.851 Suicidal ideations; R94.5 Abnormal results of liver function studies; Z75.1 Person awaiting admission to adequate facility elsewhere; Z75.3 Unavailability and inaccessibility of health-care facilities; F32.9 Major depressive disorder, single episode, unspecified; R53.1 Weakness; R09.02 Hypoxemia; E55.9 Vitamin D deficiency, unspecified; M25.571 Pain in right ankle and joints of right foot; R20.0 Anesthesia of skin; R20.2 Paresthesia of skin; F41.9 Anxiety disorder, unspecified; R74.0 Nonspecific elevation of levels of transaminase and lactic acid dehydrogenase [LDH]; R19.5 Other fecal abnormalities; E87.6 Hypokalemia; R19.7 Diarrhea, unspecified
CPT/HCPCS: 36415; 51702; 80048; 80053; 80076; 80307; 81025; 82306; 82550; 82805; 85027; 87798; 93005; 96360; 96361; 96365; 96375; 97110; 97112; 97162; 97165; 97530; 97535; 99223; 99232; 99233; 99239; 99255; 99285; J1650; NC; 36600; 70450; 71045; 71046; 72125; 72146; 72148; 80320; 80329; 81003; 81015; 82607; 83735; 83874; 84443; 84703; 85025; 86618; 87086; 93010; 94640; J0696; J1941; J2310; J2930; J7060; J7620

== ENCOUNTER 2019-05-16 12:22 | Outpatient (CLI) | payer OTHER, SELFPAY ==
[2019-05-16 14:30] LABS: ALT 19 U/L (12-78); Albumin 4.2 g/dL (3.4-5.0); Alkaline Phosphatase 59 U/L (46-116); Anion Gap 12.1 mmol/L (3-11); BUN 8 mg/dL (7-18); Bilirubin, Total 0.4 mg/dL (0.2-1.0); CO2 24.9 mmol/L (21.0-32.0); Calcium 9.4 mg/dL (8.5-10.1); Chloride 105 mmol/L (98-107); Creatine Kinase 48 U/L (26-192); Glucose 90 mg/dL (70-100); Potassium 4.3 mmol/L (3.5-5.1); Sodium 142 mmol/L (136-145); Total Protein 7.1 g/dL (6.4-8.2)
[2019-05-16 14:47] LABS: AST 10 U/L (15-37)
== END 2019-05-16 12:42 ==
PROVIDERS: PCP Nurse Practitioner; Visit Provider Nurse Practitioner Adult Health
DX: R74.0 Nonspecific elevation of levels of transaminase and lactic acid dehydrogenase [LDH] (principal); M62.82 Rhabdomyolysis
CPT/HCPCS: 36415; 80053; 82550

== ENCOUNTER 2020-01-30 09:45 | Outpatient (CLI) | payer OTHER, SELFPAY ==
[2020-02-02 08:27] LABS: SARS-CoV-2 Specimen Source Nasopharynx
[2020-02-02 08:29] LABS: SARS-CoV-2 RNA Undetected (Undetected)
== END 2020-01-30 10:05 ==
PROVIDERS: PCP Student in an Organized Health Care Education/Training Program; Visit Provider Student in an Organized Health Care Education/Training Program
DX: Z20.828 Contact with and (suspected) exposure to other viral communicable diseases (principal)
CPT/HCPCS: U0003

== ENCOUNTER 2020-02-16 13:44 | Outpatient (CLI) | payer OTHER, SELFPAY ==
--- NOTE | 2020-02-16 | DI.RAD_ITS ---
EXAM: XR CHEST 2V PA LATERAL CLINICAL HISTORY: COUGH, R05 TECHNIQUE: 2D digital imaging was performed. COMPARISON: XR CHEST 2V PA LATERAL from 04/23/2019 FINDINGS: MEDIASTINUM: Normal. HEART: Normal. PULMONARY VASCULATURE: Normal. LUNGS: Clear. PLEURAL SPACE: No pleural effusion or pneumothorax. BONE:Normal. OTHER FINDINGS:Normal. IMPRESSION: No acute pulmonary findings. DATA REPOSITORY: RADIATION DOSE DELIVERED:
== END 2020-02-16 14:04 ==
PROVIDERS: PCP Nurse Practitioner Family; Visit Provider Nurse Practitioner Family
DX: R05 Cough (principal)
CPT/HCPCS: 71046

== ENCOUNTER 2020-03-17 10:06 | Outpatient (REF) | payer OTHER, SELFPAY ==
[2020-03-17 19:22] LABS: Abs Immature Grans 0.01 k/cumm (0.0-0.09); Absolute Basophil Count 0.01 k/cumm (0.0-0.2); Absolute Eosinophil Count 0.04 k/cumm (0.0-0.7); Absolute Monocyte Count 0.45 k/cumm (0.11-0.7); Absolute Neutrophil Count 3.16 k/cumm (1.2-6.7); Basophils % 0.2; Eosinophils % 0.7; HCT 41.3 % (36.0-46.0); HGB 13.5 g/dL (12.0-15.5); Immature Grans % 0.2 %; Lymphocytes % 38.5; Mean Corp. HGB Concentration 32.7 g/dL (32.0-36.0); Mean Corpuscular Hemoglobin 27.8 pg (27.0-33.0); Mean Corpuscular Volume 85.2 fL (80-95); Mean Platelet Volume 11.1 fL (8.0-11.0); Monocytes % 7.5; Neutrophils % 52.9; Platelet Count 232 x1000/uL (130-400); RBC 4.85 m/cumm (4.00-5.20); RBC Distribution Width 14.7 % (11.7-14.6); White Blood Cell Count 5.97 k/cumm (4.4-10.8)
[2020-03-17 21:05] LABS: ALT 21 U/L (14-59); AST 13 U/L (15-37); Albumin 3.6 g/dL (3.4-5.0); Alkaline Phosphatase 74 U/L (46-116); Anion Gap 8.5 mmol/L (3-11); BUN 15 mg/dL (7-18); Bilirubin, Total 0.3 mg/dL (0.2-1.0); CO2 25.5 mmol/L (21.0-32.0); Calcium 8.9 mg/dL (8.5-10.1); Chloride 107 mmol/L (98-107); Glucose 104 mg/dL (74-106); Potassium 4.2 mmol/L (3.5-5.1); Sodium 141 mmol/L (136-145); TSH (W/Ref FT4) 1.74 uIU/mL (0.36-3.74); Total Protein 6.9 g/dL (6.4-8.2)
[2020-03-18 04:42] LABS: Vitamin D 25 Total 47.5 ng/ml (30-100)
== END 2020-03-17 10:26 ==
LOC: NCHCN 10:06
PROVIDERS: PCP Nurse Practitioner Family; Visit Provider Nurse Practitioner Family
DX: R06.09 Other forms of dyspnea (principal); R25.2 Cramp and spasm; F41.9 Anxiety disorder, unspecified; F32.9 Major depressive disorder, single episode, unspecified
CPT/HCPCS: 80053; 82306; 84443; 85025

== ENCOUNTER 2020-05-13 13:07 | Outpatient (REF) | payer OTHER, SELFPAY | END 2020-05-13 13:27 | LOC: NCHCN 13:07 | PROVIDERS: PCP Nurse Practitioner Family; Visit Provider Nurse Practitioner Family | DX: R30.0 Dysuria (principal) | CPT/HCPCS: 87077; 87086; 87186 ==

== ENCOUNTER 2020-10-14 23:04 | Outpatient (REF) | payer OTHER, SELFPAY ==
[2020-10-21 15:46] LABS: COVID-19 RT-PCR Result INVALID (Negative)
== END 2020-10-14 23:24 ==
LOC: NCHCN 23:04
PROVIDERS: PCP Nurse Practitioner Family; Visit Provider Nurse Practitioner Family
DX: Z11.59 Encounter for screening for other viral diseases (principal)
CPT/HCPCS: U0003

== ENCOUNTER 2021-05-04 10:53 | Outpatient (REF) | payer SELFPAY ==
[2021-05-04 20:28] LABS: Anion Gap 10.8 mmol/L (3-11); BUN 12 mg/dL (7-18); CO2 28.2 mmol/L (21.0-32.0); CREATININE 1.1 mg/dL (0.55-1.02); Calcium 9.4 mg/dL (8.5-10.1); Chloride 105 mmol/L (98-107); Estimated GFR 56.86 (mL/min/1.73m2); Ferritin 12 ng/mL (8-252); Glucose 102 mg/dL (74-106); Potassium 3.5 mmol/L (3.5-5.1); Sodium 144 mmol/L (136-145)
== END 2021-05-04 10:54 | disposition home or self-care (01) ==
LOC: NCHCN 10:53
PROVIDERS: PCP Nurse Practitioner Family; Visit Provider Nurse Practitioner Family
DX: Z02.89 Encounter for other administrative examinations (principal); M79.2 Neuralgia and neuritis, unspecified; F32.9 Major depressive disorder, single episode, unspecified; Z86.59 Personal history of other mental and behavioral disorders
CPT/HCPCS: 80048; 82728; 84439; 84443

== ENCOUNTER 2022-01-10 15:43 | Outpatient (REF) | payer MEDICAID, SELFPAY ==
[2022-01-10 19:54] LABS: HCT 42.1 % (36.0-46.0); HGB 13.4 g/dL (11.2-15.7); MCH 29.1 pg (27.0-33.0); MCHC 31.8 % (32.0-36.0); MCV 91.3 fL (80-95); MPV 10.4 fL (8.0-11.0); Platelet Count 253 10^3/uL (130-400); RBC 4.61 10^6/uL (3.93-5.22); RDW 14.1 % (11.7-14.6); RDW-SD 47.8 fL; WBC 8.53 10^3/uL (4.4-10.8)
[2022-01-10 20:45] LABS: Anion Gap 7.1 mmol/L (3-11); BUN 17 mg/dL (7-18); CO2 27.9 mmol/L (21.0-32.0); CREATININE 0.9 mg/dL (0.55-1.02); Calcium 8.4 mg/dL (8.5-10.1); Chloride 104 mmol/L (98-107); Ferritin 18 ng/mL (8-252); Glucose 97 mg/dL (74-106); Potassium 4.1 mmol/L (3.5-5.1); Sodium 139 mmol/L (136-145); TSH 3.47 uIU/mL (0.36-3.74); Vitamin B12 201 pg/mL (193-986)
[2022-01-12 04:49] LABS: Vitamin D 25 Total 23.7 ng/mL (30-100)
== END 2022-01-10 15:44 | disposition home or self-care (01) ==
LOC: NCHCN 15:43
PROVIDERS: PCP Nurse Practitioner Family; Visit Provider Nurse Practitioner Family
DX: R53.83 Other fatigue (principal); F41.9 Anxiety disorder, unspecified; F32.9 Major depressive disorder, single episode, unspecified
CPT/HCPCS: 80048; 82306; 85027; 82607; 82728; 84443

== ENCOUNTER 2022-10-02 16:39 | Outpatient (REF) | payer MEDICAID, SELFPAY ==
[2022-10-02 18:54] LABS: HCT 42.2 % (36.0-46.0); HGB 13.9 g/dL (11.2-15.7); MCH 29.9 pg (27.0-33.0); MCHC 32.9 % (32.0-36.0); MCV 91 fL (80-95); Platelet Count 231 10^3/uL (130-400); RBC 4.65 10^6/uL (3.93-5.22); RDW 12.7 % (11.7-14.6); RDW-SD 42.1 fL; WBC 10.23 10^3/uL (4.4-10.8)
[2022-10-02 20:54] LABS: Ferritin 30 ng/mL (8-252); Vitamin B12 260 pg/mL (193-986)
== END 2022-10-02 16:40 | disposition home or self-care (01) ==
LOC: NCHCN 16:39
PROVIDERS: PCP Nurse Practitioner Family; Visit Provider Nurse Practitioner Family
DX: F41.9 Anxiety disorder, unspecified (principal); F32.9 Major depressive disorder, single episode, unspecified; R06.83 Snoring
CPT/HCPCS: 82306; 85027; 82607; 82728

== ENCOUNTER 2023-10-10 17:25 | Emergency (ER) | payer MEDICAID, SELFPAY ==
[2023-10-10 17:25] VITALS: BP 186/106; PULSE 62; RESP 18; TEMP 36.8; O2SAT 98
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
== END 2023-10-10 20:58 | disposition home or self-care (01) ==
PROVIDERS: Emergency Provider Emergency Medicine; PCP Nurse Practitioner Family
DX: S00.81XA Abrasion of other part of head, initial encounter; V89.2XXA Person injured in unspecified motor-vehicle accident, traffic, initial encounter; F41.9 Anxiety disorder, unspecified; Z79.899 Other long term (current) drug therapy; Z91.040 Latex allergy status; Z88.8 Allergy status to other drugs, medicaments and biological substances
CPT/HCPCS: 99284; 70450; 71046; 72125

== ENCOUNTER → 2024-02-01 00:36 | Outpatient (CLI) | payer MEDICAID, SELFPAY ==
--- NOTE | 2024-02-01 09:09 | DI.RAD_ITS ---
Exam(s) XR FOOT RT COMPLETE EXAM: XR FOOT RT COMPLETE CLINICAL HISTORY: M79.671 Pain in right foot, anterior foot pain chronic. TECHNIQUE: 2D digital imaging was performed of the right foot. Three images were obtained. AP, obl ique and lateral views were obtained. COMPARISON: No exams were available for comparison FINDINGS: BONES: No acute fracture is present. No bony destructive lesion is seen. There is a tiny plantar calc aneal spur. JOINTS: No dislocation present. SOFT TISSUE: Normal. IMPRESSION: Small calcaneal spur. DATA REPOSITORY: RADIATION DOSE DELIVERED:
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
== END ==
PROVIDERS: PCP Nurse Practitioner Family; Visit Provider Nurse Practitioner Family
DX: M79.672 Pain in left foot (principal); M79.671 Pain in right foot
CPT/HCPCS: 73630

== ENCOUNTER 2024-05-28 15:18 | Outpatient (CLI) | payer OTHER, SELFPAY ==
[2024-05-28 17:14] LABS: Albumin 3.5 g/dL (3.4-5.0); Anion Gap 6.9 mmol/L (3-11); BUN 11 mg/dL (7-18); CO2 31.1 mmol/L (21.0-32.0); CREATININE 0.9 mg/dL (0.55-1.02); Calcium 8.6 mg/dL (8.5-10.1); Chloride 105 mmol/L (98-107); Estimated GFR 84.44 (mL/min/1.73m2); FREE T4 0.84 ng/dL (0.76-1.46); Glucose 88 mg/dL (74-106); PHOSPHORUS 3.9 mg/dL (2.6-4.7); Sodium 143 mmol/L (136-145); TSH 3.37 uIU/Ml (0.36-3.74)
[2024-05-28 17:47] LABS: Vitamin D 25 Total 31.9 ng/mL (30-100)
== END 2024-05-28 15:19 | disposition home or self-care (01) ==
LOC: LBO 15:18
PROVIDERS: PCP Nurse Practitioner Family; Visit Provider Nurse Practitioner Psychiatric/Mental Health
DX: F32.9 Major depressive disorder, single episode, unspecified (principal); F39 Unspecified mood [affective] disorder
CPT/HCPCS: 36415; 80048; 80069; 82306; 84439; 84443

== ENCOUNTER 2024-11-18 16:50 | Outpatient (REF) | payer OTHER, SELFPAY ==
[2024-11-18 21:33] LABS: Bilirubin Negative (Negative); Blood Negative (Negative); Clarity Clear (Clear); Glucose Negative (Negative); Ketones Negative (Negative); Leukocyte Esterase Trace (Negative); Nitrite Negative (Negative); Specific Gravity >= 1.030 (1.005-1.025); Urobilinogen 0.2 mg/dL (Up to 0.2)
[2024-11-18 21:55] LABS: Bacteria Negative HPF (Negative); C & S Indicated? Yes; Crystals Negative HPF (Negative); Epithelial Cells Few HPF (Negative); Mucus Moderate (Negative)
== END 2024-11-18 16:51 | disposition home or self-care (01) ==
LOC: LBN 16:50
PROVIDERS: Visit Provider Nurse Practitioner Family
DX: R30.0 Dysuria (principal); R39.9 Unspecified symptoms and signs involving the genitourinary system
CPT/HCPCS: 81003; 81015; 87086; 87480; 87510; 87660

== ENCOUNTER 2025-01-08 02:10 | Outpatient (CLI) | payer OTHER, SELFPAY ==
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
== END 2025-01-08 02:30 ==
LOC: DI 02:10
PROVIDERS: Visit Provider Podiatrist
DX: M79.671 Pain in right foot (principal); M79.672 Pain in left foot
CPT/HCPCS: 73630

== ENCOUNTER 2025-02-05 22:48 | Outpatient (REF) | payer OTHER, SELFPAY ==
[2025-02-05 19:05] LABS: HCT 43.1 % (36.0-46.0); HGB 14.1 g/dL (11.2-15.7); MCH 30.7 pg (27.0-33.0); MCHC 32.7 % (32.0-36.0); MCV 94 fL (80-95); Platelet Count 235 10^3/uL (130-400); RBC 4.59 10^6/uL (3.93-5.22); RDW 12.5 % (11.7-14.6); RDW-SD 43.3 fL; WBC 8.24 10^3/uL (4.4-10.8)
[2025-02-05 19:34] LABS: Ferritin 28 ng/mL (8-252)
== END 2025-02-05 22:49 | disposition home or self-care (01) ==
LOC: NCHCN 22:48
PROVIDERS: PCP Nurse Practitioner Family; Visit Provider Nurse Practitioner Family
DX: Z00.00 Encounter for general adult medical examination without abnormal findings (principal)
CPT/HCPCS: 85027; 82728

== ENCOUNTER 2025-03-20 15:26 | Outpatient (REF) | payer OTHER, SELFPAY ==
--- NOTE | 2025-03-20 08:45 | PAPFT_PTH ---
PATIENT: Payal Subramanian LOC: [facility]#:[id number] AGE/SX: 39/F ROOM: RE03/20/[address]: Alka Sainz : 1985 BED: DIS: 03/20/2025 SPEC #: [id number] RECD: 03/20/25 17:33 STATUS: VIOLA REQ #: [id number] JIM: 03/20/25 08:[address]: Alka Sainz DEPT: [facility] Cytology RECD BY: Kamille Hartman Tissues: 1 - CX/ENDOCX FOR PAP SMEARS Procedures: PAP THIN PREP/[facility] Screening HPV DNA PROBE Comments: [id number] (HPV 16 & 18/45)
[2025-03-23 12:14] LABS: Chlamydia Result Negative (Negative); GC Result Negative (Negative)
== END 2025-03-20 15:27 | disposition home or self-care (01) ==
LOC: NCHCN 15:26
PROVIDERS: PCP Nurse Practitioner Family; Visit Provider Nurse Practitioner Family
DX: Z97.5 Presence of (intrauterine) contraceptive device (principal); Z11.3 Encounter for screening for infections with a predominantly sexual mode of transmission; Z12.4 Encounter for screening for malignant neoplasm of cervix
CPT/HCPCS: 87491; 87591; 88142; 87624